=== PATIENT | male | born 1950 | race Caucasian/White ===

== ENCOUNTER → 2020-04-16 09:36 | Outpatient (BNVA) | payer MEDICARE, SELFPAY | PROVIDERS: Visit Provider Internal Medicine Gastroenterology | DX: K75.81 Nonalcoholic steatohepatitis (NASH) (principal); Z86.010 Personal history of colon polyps; E66.9 Obesity, unspecified | CPT/HCPCS: 99212 ==

== ENCOUNTER → 2020-04-21 13:28 | Outpatient (BNVA) | payer MEDICARE, SELFPAY | PROVIDERS: PCP Internal Medicine; Referring Provider Internal Medicine; Visit Provider Internal Medicine | DX: I25.10 Atherosclerotic heart disease of native coronary artery without angina pectoris (principal); I49.3 Ventricular premature depolarization; Z79.82 Long term (current) use of aspirin; Z79.899 Other long term (current) drug therapy | CPT/HCPCS: 99212 ==

== ENCOUNTER 2020-06-29 09:44 | Outpatient (REF) | payer MEDICARE, SELFPAY ==
[2020-06-29 10:07] LABS: MANUAL DIFF FLAG NO
[2020-06-29 10:10] LABS: Basophils Absolute Auto 0.1 X10*3/uL (0.0-0.2); Basophils Percent Auto 0.9 % (0-2); Eosinophils Absolute Auto 0.2 X10*3/uL (0.0-0.4); Eosinophils Percent Auto 3.3 % (0-4); Hematocrit 45.3 % (42-52); Hemoglobin 15.1 g/dl (14.0-18.0); Imm Gran Abs Auto 0.01 X10*3/uL (0.00-0.03); Imm Gran Pct Auto 0.2 % (0.0-0.4); Lymphocytes Absolute Auto 2.3 X10*3/uL (1.2-4.9); Lymphocytes Percent Auto 34.7 % (20-40); Mean Corpuscular HGB Conc 33.3 g/dl (31.0-36.0); Mean Corpuscular Hemoglobin 30.6 pg (27.0-33.0); Mean Corpuscular Volume 91.7 fL (80-98); Monocytes Absolute Auto 0.7 X10*3/uL (0.1-1.2); Monocytes Percent Auto 10.2 % (2-11); Neutrophils Absolute Auto 3.4 X10*3/uL (2.0-8.3); Neutrophils Percent Auto 50.7 % (45-73); Platelet Count 227 X10*3/uL (160-400); Red Blood Count 4.94 X10*6/uL (4.60-5.80); Red Cell Distribution Width 12.5 % (11.0-16.0); White Blood Count 6.6 X10*3/uL (4.8-10.8)
[2020-06-29 10:16] LABS: Prothrombin Time 12.1 SEC (10.8-13.0)
[2020-06-29 10:32] LABS: Alanine Aminotransferase 35 U/L (0-40); Albumin Level 4.4 g/dL (3.5-5.0); Alkaline Phosphatase 43 U/L (39-117); Aspartate Amino Transferase 26 U/L (5-37); Bilirubin Direct 0.4 mg/dL (0.0-0.5); Bilirubin Total 1.3 mg/dL (0.0-1.0); Estimated Glomerular Filt Rate > 60; Total Protein 7.1 g/dL (6.5-8.0)
== END 2020-06-29 09:45 | disposition home or self-care (01) ==
LOC: HO.LAB 09:44
PROVIDERS: Absent Provider Internal Medicine Gastroenterology; PCP Internal Medicine; Visit Provider Internal Medicine
DX: K75.81 Nonalcoholic steatohepatitis (NASH) (principal)
CPT/HCPCS: 36415; 80076; 82565; 85025; 85610

== ENCOUNTER 2020-07-07 07:17 | Day surgery (SDC) | payer MEDICARE, SELFPAY ==
[2020-06-30 13:01] VITALS: BMI 29.2
--- NOTE | 2020-07-06 09:46 | P.CONAN_ITS ---
Documented by User: Liz Larsen 07/06/20 12:03 HPI - Anesthesia Eval Consult details Narrative: 69yo M for Colonoscopy *fluid restriction of 2L per day* Cardiology OV 04/2020 - med management of CAD, walking ~1.2 miles per day, stable for 6 month f/u [facility] Past Medical History Medical History Atherosclerotic cardiovascular disease CHF (congestive heart failure) Diabetes mellitus DVT (deep venous thrombosis) GERD (gastroesophageal reflux disease) History of colonic polyps HTN (hypertension) LEMONS (nonalcoholic steatohepatitis) On beta mere at home FLORES (obstructive sleep apnea) PVC (premature ventricular contraction) Statin intolerance Family History Family History (Updated 04/16/20 @ 09:43 by NADEEN Lux) Father No problems noted. Mother Stroke Brother Liver disease Surgical History Surgical History (Updated 06/30/20 @ 12:55 by Evelin Swanson) History of hand surgery Hx of cardiac cath Hx of colonoscopy Hx of tonsillectomy Social History Social History (Updated 04/16/20 @ 09:39 by NADEEN Lux) Alcohol intake: current Alcohol intake frequency: does not drink Smoking Status: Never smoker Use of substances other than those prescribed or required for medical reasons: No Advance Directives: No Advance Directives Information Provided: No Advance Directives on File: No Recently lost weight without trying: No Meds Allergies Allergy/AdvReac Type Severity Reaction Status Date / Time No Known Allergies Allergy Verified 07/07/20 07:53 [No Known Allergies*] Home Medications Medication Instructions Recorded Confirmed Type aspirin 81 mg tablet,delayed 81 mg PO DAILY 04/16/20 06/30/20 History release cholecalciferol (vitamin D3) 25 25 mcg PO DAILY 04/16/20 06/30/20 History mcg (1,000 unit) capsule finasteride 5 mg tablet 5 mg PO DAILY 04/16/20 06/30/20 History metoprolol succinate 50 mg 50 mg PO DAILY 04/16/20 06/30/20 History tablet,extended release 24 hr tamsulosin 0.4 mg capsule 0.4 mg PO DAILY 04/16/20 06/30/20 History vitamin E (dl, acetate) 400 unit 400 unit PO DAILY 04/16/20 06/30/20 History capsule lisinopril 20 mg tablet 10 mg PO DAILY 04/21/20 06/30/20 History Exam Exam Date and Time: July 06, 2020 0946 Height,Weight and Vital Signs: Height 5 ft 9 in Weight 89.811 kg Pertinent Lab Results Pertinent Lab Results: Laboratory Tests 07/24/19 06/29/20 06/29/20 09:46 09:55 09:55 WBC 6.6 Hgb 15.1 Hct 45.3 Plt Count 227 Sodium 140 Potassium 5.3 H Chloride 104 BUN 27 H Creatinine 0.86 Narrative Narrative: Echo 06/2019 Nml LV sys function with mild LVH, Gr 1 DD EF 55-60% Trivial aortic regurg Nml RV sys pressure No pericardial effusion Assessment and Plan Assessment Anesthesia Assessment: Chart Reviewed Documented by User: Tayla Acevedo 07/07/20 08:31 [facility] Past Medical History Medical History Atherosclerotic cardiovascular disease CHF (congestive heart failure) Diabetes mellitus DVT (deep venous thrombosis) GERD (gastroesophageal reflux disease) History of colonic polyps HTN (hypertension) LEMONS (nonalcoholic steatohepatitis) On beta mere at home FLORES (obstructive sleep apnea) PVC (premature ventricular contraction) Statin intolerance Family History Family History (Updated 04/16/20 @ 09:43 by NADEEN Lux) Father No problems noted. Mother Stroke Brother Liver disease Surgical History Surgical History (Updated 06/30/20 @ 12:55 by Evelin Swanson) History of hand surgery Hx of cardiac cath Hx of colonoscopy Hx of tonsillectomy Social History Social History (Updated 04/16/20 @ 09:39 by NADEEN Lux) Alcohol intake: current Alcohol intake frequency: does not drink Smoking Status: Never smoker Use of substances other than those prescribed or required for medical reasons: No Advance Directives: No Advance Directives Information Provided: No Advance Directives on File: No Recently lost weight without trying: No Meds Allergies Allergy/AdvReac Type Severity Reaction Status Date / Time No Known Allergies Allergy Verified 07/07/20 07:53 [No Known Allergies*] Home Medications Medication Instructions Recorded Confirmed Type aspirin 81 mg tablet,delayed 81 mg PO DAILY 04/16/20 06/30/20 History release cholecalciferol (vitamin D3) 25 25 mcg PO DAILY 04/16/20 06/30/20 History mcg (1,000 unit) capsule finasteride 5 mg tablet 5 mg PO DAILY 04/16/20 06/30/20 History metoprolol succinate 50 mg 50 mg PO DAILY 04/16/20 06/30/20 History tablet,extended release 24 hr tamsulosin 0.4 mg capsule 0.4 mg PO DAILY 04/16/20 06/30/20 History vitamin E (dl, acetate) 400 unit 400 unit PO DAILY 04/16/20 06/30/20 History capsule lisinopril 20 mg tablet 10 mg PO DAILY 04/21/20 06/30/20 History Exam Airway Mallampati Class: III TM Dist: <=3cm Neck ROM: Full Heart: RRR Lungs: CTA BL Assessment and Plan Assessment Anesthesia Assessment: Anesthesia Plan Discussed and Chart Reviewed Final Anesthetic Review NPO: Yes ASA Class: III Final Preanesthetic Review: No Changes in Pt Med Stat and Consent Obtained/Reviewed Patient Risk: Intermediate Procedure Risk: Intermediate Anesthetic Plan Anesthetic Plan: MAC: Disposition: Standard PACU
[2020-07-07 08:08] VITALS: BP 132/72; PULSE 74; RESP 18; TEMP 36.2; O2SAT 97
[2020-07-07 08:13] LABS: Glucose, Whole Blood 115 mg/dL (60-115)
[2020-07-07] MEDS: Lactated Ringers 1,000 ML 20 ML IVCONT (08:22)
--- NOTE | 2020-07-07 08:32 | W.PM.OPN ---
Operative Note Operative Note Date of Service: 07/07/20 Narrative: Pre-op diagnosis: Colon cancer screening, history of colon polyps Post-op diagnosis: other (Colon polyps, diverticulosis) Procedure: COLONOSCOPY TILL CECUM WITH BIOPSY, SNARE POLYPECTOMY AND SUBMUCOSAL INJECTION Consent: Indications for the procedure and potential complications of bleeding, perforation, reaction to medications and missed diagnosis were discussed with the patient and informed consent was obtained. Instrument: Olympus PCF H 190 L variable stiffness pediatric colonoscope Monitoring: Vital signs and clinical assessment, intermittent blood pressure monitoring, continuous EKG monitoring, Pulse oximetry and Carbon Dioxide monitoring were done throughout the procedure. Colon withdrawl time was 28 minutes. Procedure: The patient was placed in the left lateral decubitis position and pre-procedure medications were administered. After a digital rectal examination of the ano-rectum, the video colonoscope was inserted into the rectum and advanced through the colon to the cecum. The colonoscope was slowly withdrawn in a retrograde panoramic fashion and the colon mucosa was carefully examined including a retroflexed view of the rectum. Findings and interventions are described below. Procedure Difficulty: Without difficulty Findings: Terminal Ileum: Not evaluated Cecum: A 10 mm flat polyp raised with 6 cc of normal saline and removed with a hot snare. Ascending Colon: A 15 to 18 mm flat polyp in the proximal ascending colon, raised with 3 cc of normal saline and removed with a hot snare. A 10 mm sessile polyp in the distal ascending colon removed with a cold snare Transverse Colon: Normal Descending Colon: Moderate diverticulosis Sigmoid Colon: Moderate diverticulosis Rectum: Focal 5 mm sessile polyp removed with the cold biopsy. Ano-rectum: Normal Colon preparation: Good after some irrigation Impression and Post Procedure Diagnosis: Colonoscopy Findings: Four small to medium sized polyps removed Moderate diverticulosis seen in the left colon Plan: Await pathology results Patient has an appointment on 07/23/20 in the GI Clinic with Frannie Padilla M.D. Repeat Colonoscopy interval based on path results - in 3 years if polyps are adenomatous and 5 years if polyps are hyperplastic. Above findings were reviewed with the patient and colon polyps and diverticulosis handouts were given in the discharge area Surgeon: Frannie Padilla MD Anesthesia: MAC (Dr Cueto) Estimated blood loss (mL): 0 Pathology: other (A. AC polyp x 1, B. cecal polyp x 1, C. Prox AC polyp x1, D. Rectal polyp x 1) Condition: stable Disposition: PACU
--- NOTE | 2020-07-07 08:32 | MHC.SHP ---
Pre-Procedural Eval Section A The patient is an INPATIENT: No The History & Physical has been completed within 30 days and I have reviewed it.: No Section B Chief Complaint: LEMONS Details of Present Illness: Denies any GI issues at present Lab results were reviewed with the patient. Lost 10 lbs - has been walking every day. Not eating any cold cut meats. Relevant Family History (Specify if Yes): No Relevant Social History: None Present Medications: see Short Stay Collaborative assessment Medical History: Significant History (Fatty liver, hx of colon polyps, PVD) History of Previous Operations: Relevant previous surgery/procedure and date(s) (History of hand surgery Hx of cardiac cath Hx of colonoscopy) Allergies: Allergies Allergy/AdvReac Type Severity Reaction Status Date / Time No Known Allergies Allergy Verified 07/07/20 07:53 [No Known Allergies*] Review of Systems Sugical H&P ROS: Negative: Constitution, Cardiovascular and Respiratory and Yes, Specify: Gastrointestinal (abdominal bloating) Exam Surgical H&P Exam: Normal: Heart, Normal: Lungs, Normal: Extremities and Normal: Abdomen Plan Diagnosis/Plan: Unchanged I have reviewed the history and physical and performed a pertinent physical examination on my patient. No changes have occurred unless specified.
[2020-07-07 09:25] VITALS: BP 98/57; PULSE 66; RESP 16; TEMP 36; O2SAT 94
[2020-07-07 09:40] VITALS: BP 116/71; PULSE 64; RESP 16; TEMP 36.1; O2SAT 98
--- NOTE | 2020-07-07 10:24 | HO.POSTANES ---
Post Anesthesia Evaluation Post Anesthesia Evaluation Vital Signs: Vital Signs Temp Pulse Resp BP Pulse Ox 07/07/20 09:40 97 F 64 16 116/71 98 07/07/20 09:25 96.8 F 66 16 98/57 L 94 07/07/20 08:08 97.2 F 74 18 132/72 97 Anesthesia: Monitored Mental Status: Awake Pain Control: Satisfactory Nausea/Vomiting: None Hydration: Adequate Anesthesia-Related Issues: No Anes. Related Issues
== END 2020-07-07 10:16 | disposition home or self-care (01) ==
PROVIDERS: Visit Provider Internal Medicine Gastroenterology
PROC: 0DJD8ZZ Inspection of Lower Intestinal Tract, Via Natural or Artificial Opening Endoscopic (ICD-10-PCS; CPT 45378; principal; 2020-07-07 08:30)
DX: Z12.11 Encounter for screening for malignant neoplasm of colon (principal); Z86.010 Personal history of colon polyps; D12.2 Benign neoplasm of ascending colon; K63.5 Polyp of colon; K62.1 Rectal polyp; K57.30 Diverticulosis of large intestine without perforation or abscess without bleeding; K75.81 Nonalcoholic steatohepatitis (NASH); G47.33 Obstructive sleep apnea (adult) (pediatric); I11.0 Hypertensive heart disease with heart failure; I50.9 Heart failure, unspecified; E66.9 Obesity, unspecified; Z79.82 Long term (current) use of aspirin; Z79.899 Other long term (current) drug therapy
CPT/HCPCS: 45385; 45380; 45381; 82947; 88305

== ENCOUNTER → 2020-07-23 13:10 | Outpatient (BNVA) | payer MEDICARE, SELFPAY | PROVIDERS: Visit Provider Internal Medicine Gastroenterology | DX: Z76.89 Persons encountering health services in other specified circumstances (principal) | CPT/HCPCS: Q3014 ==

== ENCOUNTER → 2020-10-22 14:34 | Outpatient (BNVA) | payer MEDICARE, SELFPAY | PROVIDERS: Visit Provider Internal Medicine | DX: I25.10 Atherosclerotic heart disease of native coronary artery without angina pectoris (principal); I49.3 Ventricular premature depolarization; Z78.9 Other specified health status; Z79.899 Other long term (current) drug therapy | CPT/HCPCS: 93005; 99212 ==

== ENCOUNTER → 2020-11-17 07:33 | Outpatient (REF) | payer MEDICARE, SELFPAY ==
--- NOTE | 2020-11-17 07:35 | CA_ITS ---
Transthoracic Echocardiogram Patient (Last, First, Middle): Toño Caceres J Gender: Male Date of : 1950 Age: 70 Procedure Date: 11/17/2020 Procedure Type: Transthoracic Echocardiogram Location: OP Height: 170.18 cm Weight: 82.1 kg BSA: 1.94 m2 Heart Rate: bpm BP: 124 / 80 mmHg Light Cleaner: Referring MD: Kishan Bradley MD Symptoms: I25.10 - Atherosclerotic heart disease of [place] coronary... Study Quality: Good ECG Rhythm: Sinus Conclusions: - The left ventricular systolic function is normal. The visually estimated ejection fraction is between 55-60%. - The basal inferior and basal inferoseptal segments are hypokinetic. - No obvious valvular pathology seen on this study. Findings Left Ventricle Normal left ventricular cavity size. There is mildly increased left ventricular wall thickness. The left ventricular systolic function is normal. The visually estimated ejection fraction is between 55-60%. There is no evidence of regional wall motion abnormalities. E/E prime ratio is between 8 and 15 consistent with indeterminate filling pressures. Evidence suggests grade I (mild) diastolic dysfunction. Wall Motion Rest Echo Findings The basal inferior and basal inferoseptal segments are hypokinetic. Right Ventricle Normal right ventricular cavity size and systolic function. Atria The left atrium is normal in size. The right atrium is normal in size. Aortic Valve There is a normal trileaflet aortic valve. There is mild calcification of the aortic valve. There is no aortic valve stenosis. There is mild aortic valve regurgitation. Mitral Valve The mitral valve appears normal. There is trace mitral valve regurgitation. There is no mitral valve stenosis. Pulmonic Valve The pulmonic valve was not well visualized. Tricuspid Valve Normal tricuspid valve structure. There is trace tricuspid valve regurgitation. The pulmonary artery systolic pressure is normal. Great Vessels The aortic annulus, sinuses of valsalva, and asc aorta are normal in size. Venous The inferior vena cava is normal in size and collapses greater than 50% with inspiration. Pericardium/Pleural There is no evidence of pericardial effusion. Prior Study Comparison Changes noted compared to prior study dated: 06/28/2019. See comments on wall motion. Recommendations, Care & Conclusions No obvious valvular pathology seen on this study. Measurements 2D Linear Measurements IVSd: 1.20 0.6-0.9/0.6-1.0 cm LVIDd: 4.93 3.9-5.3/4.2-5.9 cm LVIDd Index: 2.54 2.4-3.2/2.2-3.1 cm/m2 LVIDs: 3.53 2.0-3.6 cm LVPWd: 1.23 0.7-1.1 cm Ao Root: 3.20 2.1-3.5 cm LA Diam: 3.60 2.7-3.8/3.0-4.0 cm LAIDs Index: 1.86 1.5-2.3 cm/m2 LV Mass: 290.02 67-162/88-224 g LV Mass Index: 149.49 43-95/49-115 g/m2 LVOT Diam: 2.00 3.0+(-)1.3 cm 2D Systolic Function EF 4C: 49.00 >55% EF 2C: 45.30 >55% EF BiP: 41.70 >55% Mitral Valve MV Pk E: 0.57 MV PK A: 0.78 MV Decel Time: 219.00 E/A: 0.70 E'Lateral: 7.83 E'Medial: 4.35 E/E' Med: 13.20 E/E' Lat: 7.30 PHT: 64.00 MVA PHT: 3.44 Decel Dukes: 2.62 Aortic Valve AoV Pk Leonides: 1.55 AoV Mn Leonides: 1.06 AoV VTI: 0.35 AoV Pk Grad: 10.00 Aov Mn Grad: 5.00 YOGESH Cont.VTI: 1.93 LVOT LVOT Pk Leonides: 0.89 LVOT Mn Leonides: 0.58 LVOT VTI: 0.22 LVOT Pk Grad: 3.00 LVOT Mn Grad: 2.00 LVOT Diam: 2.00 LVOT Area: 3.14 Diastolic Function MV Pk E: 0.57 MV Pk A: 0.78 E/A: 0.70 E'Medial: 4.35 E/E' Med: 13.20 E' Laterial: 7.83 E/E' Lat: 7.30 Tricuspid Valve TR Pk Leonides: 2.44 TR Pk Grad: 24.00 RA Press: 3.00 Great Vessels Aorta Ao Root-2D: 3.20 2.0-3.7 cm Ao Asc: 3.50 2.1-3.4 cm Pulmonary Valve PV Pk Leonides: 0.92 Peak PV Grad: 3.00 Updated in Other Vendor System with Status of Final Kishan Bradley MD electronically signed on 11/18/2020 11:51:33 AM with status of Final
--- NOTE | 2020-11-17 07:50 | ECG_ITS ---
Hook-up date: 2020-11-17 08:56:00 Duration: 30:09:00 Test Indications: PVC'S Medications: 780651 QRS complexes 05704 Ventricular ectopics which represent 10 % of total QRS comp. 4 Supraventricular ectopics which represent <1 % of total QRS comp. * Paced QRS complexs which represent % of total QRS comp. VENTRICULAR ECTOPY 58496 Isolated 1236 Bigeminal Cycles 0 Couplets 0 Runs 0 Beats in Runs * Beats LONGEST at * BPM at :: -- * Beats FASTEST at * BPM at :: -- SUPRAVENTRICULAR ECTOPY 2 Isolated 1 Couplets 0 Runs 0 Beats in Runs * Beats LONGEST at * BPM at :: -- * Beats FASTEST at * BPM at :: -- HEART RATES 52 MIN at 02:06:28 2020-11-18 76 AVG 110 MAX at 11:50:12 2020-11-17 LONGEST RR 1.1360 secs at 02:06:28 2020-11-18 S-T LEVELS Channel 1 - 128 mm at 08:56:00 2020-11-17 - 128 mm at 08:56:00 2020-11-17 Channel 2 - 128 mm at 08:56:00 2020-11-17 - 128 mm at 08:56:00 2020-11-17 Channel 3 - 128 mm at 02:81:51 -- - 128 mm at 02:81:51 Basic rhythm Normal sinus rhythm No long pause or profound bradycardia Frequent Premature ventricular complexes , 11% of total beats, unifocal Patient did not report any symptoms in the diary Referred By: Kishan Bradley Overread By: MATTY GO MD
== END ==
LOC: HO.CARD 07:33
PROVIDERS: Visit Provider Internal Medicine
DX: I25.10 Atherosclerotic heart disease of native coronary artery without angina pectoris (principal); I49.3 Ventricular premature depolarization
CPT/HCPCS: 93225; 93226; 93306

== ENCOUNTER → 2020-12-16 14:45 | Outpatient (BNVA) | payer MEDICARE, SELFPAY | PROVIDERS: Visit Provider Internal Medicine | DX: I25.10 Atherosclerotic heart disease of native coronary artery without angina pectoris (principal); I49.3 Ventricular premature depolarization; Z78.9 Other specified health status | CPT/HCPCS: 99212 ==

== ENCOUNTER 2021-01-12 10:37 | Outpatient (REF) | payer MEDICARE, SELFPAY ==
[2021-01-12 11:48] LABS: MANUAL DIFF FLAG NO
[2021-01-12 11:51] LABS: Basophils Absolute Auto 0.1 X10*3/uL (0.0-0.2); Basophils Percent Auto 0.8 % (0-2); Eosinophils Absolute Auto 0.2 X10*3/uL (0.0-0.4); Eosinophils Percent Auto 3.4 % (0-4); Hematocrit 43.4 % (42-52); Hemoglobin 14.7 g/dl (14.0-18.0); Imm Gran Abs Auto 0.02 X10*3/uL (0.00-0.03); Imm Gran Pct Auto 0.3 % (0.0-0.4); Lymphocytes Absolute Auto 2.4 X10*3/uL (1.2-4.9); Mean Corpuscular HGB Conc 33.9 g/dl (31.0-36.0); Mean Corpuscular Hemoglobin 31.3 pg (27.0-33.0); Mean Corpuscular Volume 92.3 fL (80-98); Mean Platelet Volume 10.3 fL (9.4-12.4); Monocytes Absolute Auto 0.6 X10*3/uL (0.1-1.2); Monocytes Percent Auto 9.2 % (2-11); Neutrophils Absolute Auto 2.8 X10*3/uL (2.0-8.3); Neutrophils Percent Auto 46.3 % (45-73); Platelet Count 242 X10*3/uL (160-400); Red Cell Distribution Width 12.9 % (11.0-16.0)
[2021-01-12 11:56] LABS: Prothrombin Time 11.6 SEC (9.9-13.0)
[2021-01-12 12:13] LABS: Alanine Aminotransferase 27 U/L (0-40); Albumin Level 4.6 g/dL (3.5-5.0); Alkaline Phosphatase 48 U/L (39-117); Anion Gap 14 (12-20); Aspartate Amino Transferase 27 U/L (5-37); Bilirubin Total 1.3 mg/dL (0.0-1.0); Blood Urea Nitrogen 19 mg/dL (9-16); Calcium 9.9 mg/dL (8.4-10.2); Carbon Dioxide 26 mmol/L (22-29); Chloride 105 mmol/L (96-108); Estimated Glomerular Filt Rate > 60; Glucose Random 109 mg/dL (60-115); Potassium 4.6 mmol/L (3.3-5.1); Sodium 140 mmol/L (135-145); Total Protein 7.5 g/dL (6.5-8.0)
== END 2021-01-12 10:38 | disposition home or self-care (01) ==
LOC: HO.LAB 10:37
PROVIDERS: Visit Provider Internal Medicine Gastroenterology
DX: K75.81 Nonalcoholic steatohepatitis (NASH) (principal)
CPT/HCPCS: 36415; 80053; 85025; 85610

== ENCOUNTER → 2021-01-14 12:59 | Outpatient (BNVA) | payer MEDICARE, SELFPAY | PROVIDERS: Visit Provider Internal Medicine Gastroenterology | DX: K75.81 Nonalcoholic steatohepatitis (NASH) (principal); E66.9 Obesity, unspecified; Z86.010 Personal history of colon polyps | CPT/HCPCS: 99212 ==

== ENCOUNTER → 2021-03-23 14:14 | Outpatient (BNVA) | payer MEDICARE, SELFPAY | PROVIDERS: Visit Provider Internal Medicine | DX: I25.10 Atherosclerotic heart disease of native coronary artery without angina pectoris (principal); I49.3 Ventricular premature depolarization; Z78.9 Other specified health status | CPT/HCPCS: 99212 ==

== ENCOUNTER → 2021-08-05 11:56 | Outpatient (BNVA) | payer MEDICARE, SELFPAY | PROVIDERS: Visit Provider Internal Medicine Gastroenterology | DX: R14.0 Abdominal distension (gaseous) (principal); K75.81 Nonalcoholic steatohepatitis (NASH); E11.9 Type 2 diabetes mellitus without complications; I10 Essential (primary) hypertension; N52.9 Male erectile dysfunction, unspecified; E66.9 Obesity, unspecified; G47.33 Obstructive sleep apnea (adult) (pediatric); R55 Syncope and collapse; R97.20 Elevated prostate specific antigen [PSA]; R94.5 Abnormal results of liver function studies; Z68.26 Body mass index [BMI] 26.0-26.9, adult; Z86.010 Personal history of colon polyps; Z79.82 Long term (current) use of aspirin; Z79.899 Other long term (current) drug therapy | CPT/HCPCS: 99212 ==

== ENCOUNTER 2021-08-26 11:32 | Outpatient (REF) | payer MEDICARE, SELFPAY ==
[2021-08-26 11:59] LABS: MANUAL DIFF FLAG NO
[2021-08-26 12:17] LABS: Basophils Absolute Auto 0.1 X10*3/uL (0.0-0.2); Eosinophils Absolute Auto 0.1 X10*3/uL (0.0-0.4); Eosinophils Percent Auto 2.2 % (0-4); Hematocrit 43.8 % (42.0-52.0); Hemoglobin 14.8 g/dl (14.0-18.0); Imm Gran Abs Auto 0.02 X10*3/uL (0.00-0.03); Imm Gran Pct Auto 0.3 % (0.0-0.4); Lymphocytes Absolute Auto 2.2 X10*3/uL (1.2-4.9); Lymphocytes Percent Auto 37.1 % (20-40); Mean Corpuscular HGB Conc 33.8 g/dl (31.0-36.0); Mean Corpuscular Hemoglobin 31.2 pg (27.0-33.0); Mean Corpuscular Volume 92.2 fL (80.0-98.0); Mean Platelet Volume 10.1 fL (9.4-12.4); Monocytes Absolute Auto 0.6 X10*3/uL (0.1-1.2); Monocytes Percent Auto 9.5 % (2-11); Neutrophils Absolute Auto 2.9 x10*3/uL (2.0-8.3); Neutrophils Percent Auto 49.9 % (45-73); Platelet Count 216 X10*3/uL (160-400); Red Blood Count 4.75 X10*6/uL (4.60-5.80); Red Cell Distribution Width 12.6 % (11.0-16.0); White Blood Count 5.8 X10*3/uL (4.8-10.8)
[2021-08-26 13:31] LABS: Folate 18.3 ng/mL (> or = 4.0); Vitamin B12 389 pg/mL (200-900)
[2021-08-26 14:18] LABS: Alanine Aminotransferase 35 U/L (0-40); Albumin Level 4.7 g/dL (3.5-5.0); Alkaline Phosphatase 41 U/L (39-117); Anion Gap 14 (12-20); Aspartate Amino Transferase 26 U/L (5-37); Bilirubin Total 1.6 mg/dL (0.0-1.0); Blood Urea Nitrogen 20 mg/dL (9-16); Calcium 9.8 mg/dL (8.4-10.2); Carbon Dioxide 24 mmol/L (22-29); Chloride 104 mmol/L (96-108); Cholesterol 227 mg/dL; Estimated Glomerular Filt Rate > 60; Glucose Fasting 127 mg/dL (60-99); HDL Cholesterol 38 mg/dL; LDL Cholesterol Calculated 158 mg/dl; Lipase 18 U/L (8-78); Potassium 4.6 mmol/L (3.3-5.1); Sodium 137 mmol/L (135-145); Total Protein 7.4 g/dL (6.5-8.0); Triglycerides 157 mg/dL
[2021-08-26 14:41] LABS: TSH reflex Free T4 0.53 uIU/mL (0.32-4.0)
[2021-08-26 18:05] LABS: Reflex LDLD? No
[2021-08-27 16:47] LABS: Immunoglobulin A 220 mg/dL (70-320)
[2021-08-27 22:32] LABS: Transglutaminase IgA <1.0 U/mL
== END 2021-08-26 11:33 | disposition home or self-care (01) ==
LOC: HO.LAB 11:32
PROVIDERS: Visit Provider Internal Medicine Gastroenterology
DX: R14.0 Abdominal distension (gaseous) (principal)
CPT/HCPCS: 36415; 80053; 80061; 82607; 82746; 82784; 83690; 84443; 85025; 86364

== ENCOUNTER → 2021-09-10 07:37 | Outpatient (BNVA) | payer MEDICARE, SELFPAY | PROVIDERS: Visit Provider Internal Medicine Gastroenterology | DX: K75.81 Nonalcoholic steatohepatitis (NASH) (principal); R14.0 Abdominal distension (gaseous); Z86.010 Personal history of colon polyps | CPT/HCPCS: 99212 ==

== ENCOUNTER → 2022-01-20 07:53 | Outpatient (BNVA) | payer MEDICARE, SELFPAY | PROVIDERS: Visit Provider Internal Medicine Gastroenterology | DX: E78.00 Pure hypercholesterolemia, unspecified (principal); R14.0 Abdominal distension (gaseous); K75.81 Nonalcoholic steatohepatitis (NASH); Z86.010 Personal history of colon polyps | CPT/HCPCS: 99212 ==

== ENCOUNTER 2022-01-20 08:34 | Outpatient (REF) | payer MEDICARE, SELFPAY ==
[2022-01-20 09:14] LABS: Alanine Aminotransferase 41 U/L (0-40); Albumin Level 4.8 g/dL (3.5-5.0); Alkaline Phosphatase 44 U/L (39-117); Anion Gap 15 (12-20); Aspartate Amino Transferase 35 U/L (5-37); Bilirubin Total 1.5 mg/dL (0.0-1.0); Blood Urea Nitrogen 23 mg/dL (9-16); Calcium 9.5 mg/dL (8.4-10.2); Carbon Dioxide 27 mmol/L (22-29); Chloride 104 mmol/L (96-108); Cholesterol 226 mg/dL; Estimated Glomerular Filt Rate > 60; Glucose Fasting 123 mg/dL (60-99); HDL Cholesterol 41 mg/dL; LDL Cholesterol Calculated 158 mg/dl; Potassium 4.9 mmol/L (3.3-5.1); Sodium 141 mmol/L (135-145); Total Protein 7.6 g/dL (6.5-8.0); Triglycerides 136 mg/dL
[2022-01-20 10:50] LABS: Reflex LDLD? No
== END 2022-01-20 08:35 | disposition home or self-care (01) ==
LOC: HO.LAB 08:34
PROVIDERS: Visit Provider Internal Medicine Gastroenterology
DX: E78.00 Pure hypercholesterolemia, unspecified (principal)
CPT/HCPCS: 36415; 80053; 80061

== ENCOUNTER → 2022-03-24 09:31 | Outpatient (BNVA) | payer MEDICARE, SELFPAY | PROVIDERS: Visit Provider Internal Medicine | DX: I25.10 Atherosclerotic heart disease of native coronary artery without angina pectoris (principal); E78.5 Hyperlipidemia, unspecified | CPT/HCPCS: 93005; 99212 ==

== ENCOUNTER → 2022-07-21 07:57 | Outpatient (BNVA) | payer MEDICARE, SELFPAY | PROVIDERS: Visit Provider Internal Medicine Gastroenterology | DX: K75.81 Nonalcoholic steatohepatitis (NASH) (principal); R14.0 Abdominal distension (gaseous); Z86.010 Personal history of colon polyps | CPT/HCPCS: 99212 ==

== ENCOUNTER 2022-10-28 09:24 | Outpatient (REF) | payer MEDICARE, SELFPAY ==
[2022-10-28 09:43] LABS: MANUAL DIFF FLAG NO
[2022-10-28 09:52] LABS: Basophils Absolute Auto 0.1 X10*3/uL (0.0-0.2); Basophils Percent Auto 0.9 % (0-2); Eosinophils Absolute Auto 0.2 X10*3/uL (0.0-0.4); Eosinophils Percent Auto 2.9 % (0-4); Hematocrit 44.2 % (42.0-52.0); Imm Gran Abs Auto 0.02 X10*3/uL (0.00-0.03); Imm Gran Pct Auto 0.3 % (0.0-0.4); Lymphocytes Absolute Auto 2.5 X10*3/uL (1.2-4.9); Lymphocytes Percent Auto 37.2 % (20-40); Mean Corpuscular HGB Conc 33.9 g/dl (31.0-36.0); Mean Corpuscular Hemoglobin 30.9 pg (27.0-33.0); Mean Corpuscular Volume 90.9 fL (80.0-98.0); Mean Platelet Volume 9.9 fL (9.4-12.4); Monocytes Absolute Auto 0.7 X10*3/uL (0.1-1.2); Neutrophils Absolute Auto 3.2 x10*3/uL (2.0-8.3); Neutrophils Percent Auto 48.7 % (45-73); Platelet Count 227 X10*3/uL (160-400); Red Blood Count 4.86 X10*6/uL (4.60-5.80); Red Cell Distribution Width 12.6 % (11.0-16.0); White Blood Count 6.6 X10*3/uL (4.8-10.8)
[2022-10-28 09:56] LABS: Estimated Average Glucose 117 mg/dL; Hemoglobin A1c % 5.7 %
[2022-10-28 09:57] LABS: INTERNATIONAL NORM RATIO 0.9 (0.9-1.1); Prothrombin Time 10.2 SEC (10.0-13.1)
[2022-10-28 10:25] LABS: Alanine Aminotransferase 44 U/L (0-40); Albumin Level 4.4 g/dL (3.5-5.0); Alkaline Phosphatase 47 U/L (39-117); Anion Gap 13 (12-20); Aspartate Amino Transferase 36 U/L (5-37); Bilirubin Total 0.9 mg/dL (0.0-1.0); Blood Urea Nitrogen 22 mg/dL (9-16); Calcium 9.4 mg/dL (8.4-10.2); Carbon Dioxide 27 mmol/L (22-29); Chloride 106 mmol/L (96-108); Estimated Glomerular Filt Rate > 60; Glucose Fasting 115 mg/dL (60-99); Potassium 5.1 mmol/L (3.3-5.1); Sodium 141 mmol/L (135-145); Total Protein 7.1 g/dL (6.5-8.0)
== END 2022-10-28 09:25 | disposition home or self-care (01) ==
LOC: HO.LAB 09:24
PROVIDERS: Visit Provider Internal Medicine Gastroenterology
DX: K75.81 Nonalcoholic steatohepatitis (NASH) (principal)
CPT/HCPCS: 36415; 80053; 83036; 85025; 85610

== ENCOUNTER 2023-01-19 07:50 | Outpatient (AMB) | payer MEDICARE, SELFPAY ==
--- NOTE | 2023-01-19 08:04 | A.OFFVIS_ITS ---
Intake Vital Signs 01/19/23 08:09 Height 5 ft 9 in Weight 183 lb BMI 27.0 BP 138/68 Blood Pressure Location Lt brachial Position Sitting Pulse 68 Intake Visit Reasons: 6 month FU Intake Note: Patient follow up for abdominal bloating and lab result Patient cc: right center abdominal pain come and go, denies any other GI issues. Measurement Specialist Required: No Accompanied by: Self / Same As Patient Allergies [id number] Reductase Inhibitor Adverse Reaction (Mild, Verified 01/19/23 08:04) Abdominal Pain Medication List - Last Reconciled 01/19/23 by Frannie Padilla MD No Known Home Meds HPI 6 month FU HPI Details GI clinic visit for this 72-year-old male for follow-up of adenomatous colon polyps, elevated LFTs, fatty liver and obesity. ?CHRONIC ILLNESSES:?Essential hypertension, sleep apnea, syncope, elevated PSA, erectile dysfunction. [facility] Reviewed INR 1.0, ? BILIRUBIN, TOTAL 1.1 H ? GOT 34 (5-37) (U/L) ? GPT 44 H (0-40) (U/L) ?IMAGING STUDIES: 04/09/2019 ABDOMINAL ULTRASOUND SHOWED: ? Hepatic steatosis with focal fatty sparing. ? Rest of the abdominal ultrasound is unremarkable. ?ENDOSCOPIC STUDIES: 07/07/20 COLONOSCOPY SHOWED: ? Four small to medium sized polyps removed ? Moderate diverticulosis seen in the left colon ? Plan:? Repeat Colonoscopy interval based on path results - in 3 years if polyps are adenomatous and 5 years if polyps are hyperplastic. ? ? ? BIOPSIES SHOWED: A.? Colon, ascending, polypectomy:-? Fragments of sessile serrated polyp. B.? Cecum, polypectomy:? Colonic mucosa with prominent lymphoid aggregate; no dysplasia seen. C.? Colon, proximal ascending, polypectomy:? Sessile serrated polyp with small perineurioma. D.? Rectum, polypectomy:? Hyperplastic mucosal polyp. 06/25/19 colonoscopy showed: ? Two polyps removed - BX showed fragments of sessile serrated polyp. ? Small hemorrhoids on retroflexed exam. ? Plan:? Repeat Colonoscopy interval based on path results in 1-2 years if ? cecal polyps are adenomatous to check polypectomy site and 10 years if polyps are hyperplastic. ? Above findings were reviewed with the patient and handout on Colon polyps was given in the discharge area BIOPSIES SHOWED: A.? Colon, ascending, polypectomy:-? Fragments of sessile serrated polyp. B.? Cecum, polypectomy:? Colonic mucosa with prominent lymphoid aggregate; no dysplasia seen. C.? Colon, proximal ascending, polypectomy:? Sessile serrated polyp with small perineurioma. D.? Rectum, polypectomy:? Hyperplastic mucosal polyp. ?TODAY'S VISIT Able to loose wt to 183 lbs Resumed walking - tries to walk 7000 steps daily Has bloating when he eats too much bread. Fasting blood sugar range from a 100 to 105 Denies heartburn, dysphagia, constipation or diarrhea. On no medications - takes aspirin intermittently PAST VISITS: Has gained wt from 182 to 192 (187 lbs at home) Has been less active during the winter. Plans to start walking. When he wakes up at 8:30 am, checks his blood sugar and is 120 to 138 Has a brunch at 10 am and has suppper 4 to 5 pm. Bloating has improved since he cut back on carbohydrates. Cut out saturated fat from his diet. Taking some fibre since he notes fatigue and bloating witth bread and whole grain. Taking more fruit and salad Cooks at home and does not eat packaged food. likes to cook. Feeling a little better than last visit. Made some changes in the diet - eating a little less and watching the saturated fat in his diet. Feeling weird - having constipation since Jun, 2021 Feels dizzy when he tries to walk. Notes gas and bloating - like never before Has breakfast at 10 am - 3 eggs, torrez or home cooked ham Takes some cottage cheese or a slice of white cheese Has salads a few times a day Eating a handful of berries and eats nuts every night. Has home cooked meals for dinner at 5 pm - mostly soup Blood sugar levels are 120 to 130 when he wakes up. Wt is going up slowly. Has a Bm every other day and is painful. Trying to avoid the carbs. Continues to walk daily and having some back pain and associated with urination (? due to gas) Lost 14 lbs over the past 3 months by changing his diet. Planning to loose to 170 lbs. Walking 1.5 hrs (5 miles) every day. Using [place] and sesame seed oil. ?Taking more fibre in his diet. ? Continuing to walk daily - loosing weight slowly. ? Using a special belt which is helping with back pain. Had a son who at age 38 yrs from Pulmonary Htn. Tx from [place] to [place] for a lung transplant and did not survive. Has relatives in [place] that he visits periodically ? PAST VISIT: Colonoscopy results were reviewed. ? Denies problems after colonoscopy. ? Lost 10 lbs - has been walking every day. ? Not eating any cold cut meats. ? Working on loosing weight and has lost 7 lbs - fat layer is a little less. ? Weighs 194.5 lbs ? is cooking without fat. ? Unable to excercise due to palpitations. ? Is able to walk with some breaks. ? Denies taking any ETOH for the last 3 yrs. ? He states he drank ETOH in [place] in the and states he was poisoned and he was jaundiced afterwards. He is uncertain of the diagnosis but a medication cleared it up. ? Denies exposure to Hep B, C, D, HIV or tuberculosis ? Admits cardiac issues- HTN, had a stent placed in 2015, ahs SOB when walking on an incline, cardiology appointment in June 2019- may request for him to seen sooner prior to colonoscopy for clearance. ? Denies CP but has some mild discomfort with?excecise PFS Medical History (Updated 01/20/22 @ 08:21 by Frannie Padilla MD) Atherosclerotic cardiovascular disease CHF (congestive heart failure) Diabetes mellitus DVT (deep venous thrombosis) GERD (gastroesophageal reflux disease) History of colonic polyps HTN (hypertension) LEMONS (nonalcoholic steatohepatitis) On beta mere at home FLORES (obstructive sleep apnea) PVC (premature ventricular contraction) Statin intolerance Surgical History History of hand surgery Hx of cardiac cath Hx of colonoscopy Hx of tonsillectomy Family History Father No problems noted. Mother Stroke Brother Liver disease Social History Household Members: Spouse Alcohol intake: current Alcohol intake frequency: does not drink Patient Tobacco Use Status: Never used Tobacco Review of Systems Const All systems reviewed & are unremarkable except as noted in HPI and below Physical Exam Const General: healthy appearing and no acute distress Nutritional Appearance: overweight Orientation/consciousness: patient oriented x3 Limitations: no limitations HEENT Head: Yes normal to inspection Ears: hearing grossly normal bilaterally Eyes Sclerae: sclerae normal Pupils: Equal, round and reactive pupils present Neck Neck: Yes normal visual inspection Chest Chest palpation & inspection: normal inspection of the chest Resp Effort & Inspection: normal respiratory effort Auscultation: clear to auscultation bilaterally Cardio Palpation: normal PMI Rate: regular rate Rhythm: regular rhythm Heart sounds: S1 normal heart sound present, S2 normal heart sound present and no murmurs GI Palpation (GI): Soft to palpation, nontender and No hepatosplenomegaly present Auscultation: normal bowel sounds Rectal Exam - Male: Yes deferred Skin General skin exam: no rashes or lesions noted Neuro General: patient oriented x3, gait normal and moves all extremities Cranial nerves: Yes Equal, round and reactive pupils present Psych Appearance: grossly normal Mental Status: mental status grossly normal Assessment & Plan Assessment & Plan (1) Abdominal bloating: Code(s): R14.0 - Abdominal distension (gaseous) (2) History of colonic polyps: Code(s): Z86.010 - Personal history of colonic polyps (3) LEMONS (nonalcoholic steatohepatitis): Code(s): K75.81 - Nonalcoholic steatohepatitis (LEMONS) Plan 72 YM with Essential hypertension, sleep apnea, syncope, elevated PSA, erectile dysfunction, CAD, seen for FU of elevated LFTs likely due to fatty liver associated with obesity and follow-up of adenomatous colon polyps. Patient had a colonoscopy in Jul, 2020 and three sessile serrated polyps were removed.? Repeat colonoscopy is advised in 3 years (due in 07/2023). Patient was advised weight reduction for fatty liver. He and his are working on changing to a healthier diet with more fruits and vegetables. LFTs have been normal since he lost weight. He was advised to stop vitamin E when he finishes the current prescription. Patient handout on fatty liver from up-to-date was given to the patient at a previous visit. Symptoms of bloating and constipation have improved with change in diet (cutting back on fried foods). Pt was advised to establish care with a primary care physician for management of elevated cholesterol (since he has been following up with Cardiology and GI only) Repeat labs to recheck cholesterol at patient's request. Still looking for a PCP - given names of PCP providers to establish care. Advised a trail of a FODMAP diet for 6 weeks during his past visit. Follow-up in 6 months.? Coding Level of Care Code Est Pt Level 4 (56473) Diagnoses Abdominal bloating R14.0 History of colonic polyps Z86.010 LEMONS (nonalcoholic steatohepatitis) K75.81 Time Spent (min) 22
[2023-01-19 08:09] VITALS: BP 138/68; PULSE 68; BMI 27.0
== END 2023-01-19 08:37 | disposition home or self-care (01) ==
PROVIDERS: Visit Provider Internal Medicine Gastroenterology
DX: R14.0 Abdominal distension (gaseous) (principal); Z86.010 Personal history of colon polyps; K75.81 Nonalcoholic steatohepatitis (NASH)
CPT/HCPCS: 99214

== ENCOUNTER → 2023-01-19 07:50 | Outpatient (BNVA) | payer MEDICARE, SELFPAY | PROVIDERS: Visit Provider Internal Medicine Gastroenterology | DX: R14.0 Abdominal distension (gaseous) (principal); K75.81 Nonalcoholic steatohepatitis (NASH); Z86.010 Personal history of colon polyps | CPT/HCPCS: 99212 ==

== ENCOUNTER 2023-04-04 10:01 | Outpatient (AMB) | payer MEDICARE, SELFPAY ==
[2023-04-04 10:06] VITALS: BP 122/70; PULSE 81; BMI 28.1
--- NOTE | 2023-04-04 10:06 | A.OFFVIS_ITS ---
Intake Vital Signs 04/04/23 10:06 Height 5 ft 9 in Weight 190 lb 7.67 oz BMI 28.1 BP 122/70 Blood Pressure Location Lt brachial Position Sitting Pulse 81 Intake Visit Reasons: 1 year follow-up with ekg Intake Note: 1 year follow up w. 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 According to him, generally doing okay. No complaints like angina unless he really exerts strenuously. He is able to carry on with almost every activity he wants to do without any issues. With regard to medications, he is only taking intermittent aspirin. He has been on various other meds in the past including beta-blockers, nitrates, lisinopril, amlodipine, statins at different times but he had always complained of some side effect or the other and hence does not take any of them anymore. Otherwise, he has tried statins but could not take them because of musculoskeletal pain although not entirely clear if it is me dication related. Then tried Repatha and could not afford. Hence on nothing for cholesterol. [facility] Medical History (Updated 01/20/22 @ 08:21 by Frannie Padilla MD) CHF (congestive heart failure) On beta mere at home HTN (hypertension) Diabetes mellitus DVT (deep venous thrombosis) GERD (gastroesophageal reflux disease) LEMONS (nonalcoholic steatohepatitis) FLORES (obstructive sleep apnea) PVC (premature ventricular contraction) Statin intolerance Atherosclerotic cardiovascular disease History of colonic polyps Surgical History Hx of tonsillectomy History of hand surgery Hx of cardiac cath Hx of colonoscopy Family History Father No problems noted. Mother Stroke Brother Liver disease Social History Household Members: Spouse Alcohol intake: current Alcohol intake frequency: does not drink Patient Tobacco Use Status: Never used Tobacco Review of Systems Const Denies chills, Denies fatigue, Denies fever(s), Denies frequent falls, Denies weakness, Denies weight gain and Denies weight loss ENT Denies dizziness Card Denies chest pain, Denies leg edema, Denies lightheadedness, Denies palpitations, Denies dyspnea, Denies dyspnea on exertion, Denies orthopnea and Denies other (Loss of consciousness) Resp Denies cough, Denies dyspnea and Denies dyspnea on exertion GI Denies hematochezia and Denies change in bowel habits Musc Denies abnormal gait, Denies muscle weakness, Denies numbness, Denies radiating pain into limb and Denies tingling Neuro Denies abnormal gait, Denies dizziness, Denies frequent falls, Denies numbness, Denies tingling and Denies weakness Endo Denies fatigue and Denies palpitations Physical Exam Vital Signs: Last Vital Signs Pulse 81 04/04/23 10:06 BP 122/70 04/04/23 10:06 BMI result Body Mass Index 28.1 Const General: comfortable and no acute distress Orientation/consciousness: patient oriented x3 HEENT Other: Unremarkable Head: Yes normal to inspection Neck Neck: Yes normal visual inspection Chest Chest palpation & inspection: normal inspection of the chest Resp Auscultation: clear to auscultation bilaterally Cardio Palpation: normal PMI Heart sounds: S1 normal heart sound present, S2 normal heart sound present, no gallops, no murmurs and no rubs GI Palpation (GI): Soft to palpation Back/Spine/Pelvis Other: unremarkable Skin General skin exam: no rashes or lesions noted Neuro General: patient oriented x3 Extrem General: Yes normal to inspection Psych Mental Status: mental status grossly normal Office Procedures EKG Details: EKG with sinus rhythm at 81/Min; minimal criteria for LVH; no significant ST-T changes; [place] [id number], Complete Assessment & Plan Assessment & Plan (1) Atherosclerotic cardiovascular disease: Code(s): I25.10 - Atherosclerotic heart disease of seminole coronary artery without angina pectoris (2) Statin intolerance: Code(s): Z78.9 - Other specified health status Plan Cardiac catheterization from 2019 shows patent stent in the LAD; 90% ostial diagonal disease-small vessel; 80% ostial right PDA disease, medically managed. Last echocardiogram with preserved LVEF 55-60% and basal inferior/inferoseptal hypokinesis that may be related to the PDA disease. We have discussed his medications numerous times in every single prior visit and also today. Essentially he wants to take no medications at all. At least recommended that he takes regular aspirin. With regard to statins not able to take due to musculoskeletal pains. He does not want to do injections and also there was an issue with roque of Repatha. We discussed again today and he absolutely wants no changes. Script for sublingual nitroglycerin sent-take as needed. Total time spent including review of data, counseling, documentation, coordination of care-31 minutes. Medications: New nitroglycerin do not exceed 3 doses per episode 0.4 mg sublingual Q5M PRN 30 tabs 5RF chest pain R07.2 - Precordial pain Coding Level of Care Code Est Pt Level 4 (19881) Diagnoses Atherosclerotic cardiovascular disease I25.10 Statin intolerance Z78.9 CPT Codes EKG - CPT: 13400-[id number], Complete ([id number])
== END 2023-04-04 10:29 | disposition home or self-care (01) ==
PROVIDERS: Visit Provider Internal Medicine
DX: I25.10 Atherosclerotic heart disease of native coronary artery without angina pectoris (principal); Z78.9 Other specified health status
CPT/HCPCS: 93010; 99214

== ENCOUNTER → 2023-04-04 10:01 | Outpatient (BNVA) | payer MEDICARE, SELFPAY | PROVIDERS: Visit Provider Internal Medicine | DX: I25.10 Atherosclerotic heart disease of native coronary artery without angina pectoris (principal); Z78.9 Other specified health status | CPT/HCPCS: 93005; 99212 ==

== ENCOUNTER 2023-05-23 12:45 | Day surgery (SDC) | payer MEDICARE, SELFPAY ==
[2023-05-19 09:21] VITALS: BMI 28.1
--- NOTE | 2023-05-22 10:41 | HO.ANESPROP2 ---
HPI - Anesthesia Eval Consult details Narrative: 72yo M for Colonoscopy Follows [facility] for CAD. Last office visit routine, 03/2023. Stable with yearly f/u [facility] Active Problems Active Problems: All Active Problems (Updated 05/19/23 @ 09:20 by Jennifer Ge, RN) Elevated cholesterol (Acute) Abdominal bloating (Acute) History of colonic polyps (Acute) Obesity (BMI 30.0-34.9) (Acute) LEMONS (nonalcoholic steatohepatitis) (Acute) Hyperlipidemia (Acute) BPH (benign prostatic hyperplasia) (Acute) Peripheral vascular disease (Acute) CAD (coronary artery disease) (Acute) Erectile dysfunction (Acute) Elevated PSA (Acute) Obstructive sleep apnea (Acute) Essential hypertension (Acute) PVC (premature ventricular contraction) (Acute) Statin intolerance (Acute) Atherosclerotic cardiovascular disease (Acute) Past Medical History Medical History CAD (coronary artery disease) CHF (congestive heart failure) On beta mere at home HTN (hypertension) Diabetes mellitus DVT (deep venous thrombosis) GERD (gastroesophageal reflux disease) LEMONS (nonalcoholic steatohepatitis) FLORES (obstructive sleep apnea) PVC (premature ventricular contraction) Statin intolerance Atherosclerotic cardiovascular disease History of colonic polyps Family History Family History Father No problems noted. Mother Stroke Brother Liver disease Surgical History Surgical History (Updated 06/06/23 @ 10:45 by Loreta Jones) Hx of tonsillectomy History of hand surgery Hx of cardiac cath Hx of colonoscopy Social History Social History Household Members: Spouse Alcohol intake: current Alcohol intake frequency: does not drink Patient Tobacco Use Status: Never used Tobacco Meds Allergies Allergy/AdvReac Type Severity Reaction Status Date / Time Spwajeh-JNY-UhM Reductase AdvReac Mild Abdominal Verified 04/04/23 10:06 Inhibitor Pain Exam Height,Weight and Vital Signs: Height 5 ft 9 in Weight 86.183 kg Pertinent Lab Results Pertinent Lab Results: Laboratory Tests 10/28/22 09:42 WBC 6.6 Hgb 15.0 Hct 44.2 Plt Count 227 Sodium 141 Potassium 5.1 Chloride 106 Carbon Dioxide 27 BUN 22 H Creatinine 0.99 Narrative Narrative: EKG 03/2023 sinus rhythm at 81/Min; minimal criteria for LVH; no significant ST-T changes; normal SC and corrected QT. Cardiac catheterization from 2019 shows patent stent in the LAD; 90% ostial diagonal disease-small vessel; 80% ostial right PDA disease, medically managed. Last echocardiogram with preserved LVEF 55-60% and basal inferior/inferoseptal hypokinesis that may be related to the PDA disease. Assessment and Plan Assessment Anesthesia Assessment: Chart Reviewed
[2023-05-23 13:08] VITALS: BMI 27.9
[2023-05-23 13:32] VITALS: BP 151/84; PULSE 82; RESP 16; TEMP 36.1; O2SAT 97
[2023-05-23] MEDS: Lactated Ringers 1,000 ML 100 ML IVCONT (13:34)
--- NOTE | 2023-05-23 13:40 | MHC.SHP ---
Pre-Procedural Eval Section A Date of Service: 05/23/23 The patient is an INPATIENT: No The History & Physical has been completed within 30 days and I have reviewed it.: No Section B Chief Complaint: Abdominal distension (gaseous),hx colonic polyps Relevant Family History (Specify if Yes): No Relevant Social History: None Present Medications: see Short Stay Collaborative assessment Medical History: Significant History (Atherosclerotic cardiovascular disease CHF (congestive heart failure) Diabetes mellitus DVT (deep venous thrombosis) GERD (gastroesophageal reflux disease) History of colonic polyps HTN (hypertension) LEMONS (nonalcoholic steatohepatitis) On beta mere at home FLORES (obstructive sleep apnea) PVC (madan) History of Previous Operations: Relevant previous surgery/procedure and date(s) (History of hand surgery Hx of cardiac cath Hx of colonoscopy Hx of tonsillectomy) Allergies: Allergies Allergy/AdvReac Type Severity Reaction Status Date / Time Vsnrpyf-EVV-XtJ Reductase AdvReac Mild Abdominal Verified 04/04/23 10:06 Inhibitor Pain Review of Systems Sugical H&P ROS: Negative: Constitution, Cardiovascular, Respiratory and Gastrointestinal Exam Surgical H&P Exam: Normal: Heart, Normal: Lungs, Normal: Extremities and Normal: Abdomen Plan Diagnosis/Plan: Unchanged I have reviewed the history and physical and performed a pertinent physical examination on my patient. No changes have occurred unless specified. Time Spent With Patient Time: Total time managing care of this patient today ____ minutes.
--- NOTE | 2023-05-23 14:31 | PC.NURSE ---
Pre- op care transitioned to [facility].
--- NOTE | 2023-05-23 16:00 | HO.ANESPROP2 ---
HPI - Anesthesia Eval Consult details Narrative: screening colonoscopy REPLACED BY [facility] Active Problems Active Problems: All Active Problems (Updated 05/19/23 @ 09:20 by Jennifer Ge, AMELIA) Elevated cholesterol (Acute) Abdominal bloating (Acute) History of colonic polyps (Acute) Obesity (BMI 30.0-34.9) (Acute) LEMONS (nonalcoholic steatohepatitis) (Acute) Hyperlipidemia (Acute) BPH (benign prostatic hyperplasia) (Acute) Peripheral vascular disease (Acute) CAD (coronary artery disease) (Acute) Erectile dysfunction (Acute) Elevated PSA (Acute) Obstructive sleep apnea (Acute) Essential hypertension (Acute) PVC (premature ventricular contraction) (Acute) Statin intolerance (Acute) Atherosclerotic cardiovascular disease (Acute) Past Medical History Medical History CAD (coronary artery disease) CHF (congestive heart failure) On beta mere at home HTN (hypertension) Diabetes mellitus DVT (deep venous thrombosis) GERD (gastroesophageal reflux disease) LEMONS (nonalcoholic steatohepatitis) FLORES (obstructive sleep apnea) PVC (premature ventricular contraction) Statin intolerance Atherosclerotic cardiovascular disease History of colonic polyps Family History Family History Father No problems noted. Mother Stroke Brother Liver disease Family history of problems with anesthesia: No Surgical History Surgical History Hx of tonsillectomy History of hand surgery Hx of cardiac cath Hx of colonoscopy History of Problems with Anesthesia: No Social History Social History Household Members: Spouse Alcohol intake: current Alcohol intake frequency: does not drink Patient Tobacco Use Status: Never used Tobacco Use of substances other than those prescribed or required for medical reasons: No Are you DNR?: No Advance Directives: No Advance Directives Information Provided: Yes Meds Allergies Allergy/AdvReac Type Severity Reaction Status Date / Time Caowexq-NVU-StT Reductase AdvReac Mild Abdominal Verified 04/04/23 10:06 Inhibitor Pain Active Medications: Current Medications Lactated Ringer's (Lr) 1,000 mls @ 100 mls/hr IVCONT .Q10H GALA Last Admin: 05/23/23 13:34 Dose: 100 mls/hr Exam Height,Weight and Vital Signs: Height 5 ft 9 in Weight 85.842 kg Last Vital Signs Temp 96.9 F 05/23/23 13:32 Pulse 82 05/23/23 13:32 Resp 16 05/23/23 13:32 BP 151/84 H 05/23/23 13:32 Pulse Ox 97 05/23/23 13:32 O2 Del Method Room Air 05/23/23 13:32 Airway Mallampati Class: II TM Dist: >3cm Neck ROM: Full Loose/Missing/Broken Teeth: No Heart: RRR Lungs: CTA Assessment and Plan Assessment Anesthesia Assessment: Anesthesia Plan Discussed and Chart Reviewed Final Anesthetic Review Family History of Problems with Anesthesia: No History of Problems with Anesthesia: No NPO: Yes ASA Class: III Final Preanesthetic Review: No Changes in Pt Med Stat, Meds/Allgs Chart Reviewed, Consent Obtained/Reviewed and Anes Risks/Benef Reviewed Patient Risk: Intermediate Procedure Risk: Low Anesthetic Plan Anesthetic Plan: TIVA Disposition: Standard PACU
--- NOTE | 2023-05-23 16:03 | W.PM.OPN ---
Operative Note Operative Note Date of Service: 05/23/23 Narrative: COLONOSCOPY TILL CECUM WITH SNARE POLYPECTOMY Pre-op diagnosis: Surveillance for colon polyp Post-op diagnosis:? Colon polyps, diverticulosis, hemorrhoids Endoscopist:? Frannie Padilla MD Anesthesia:?MAC Consent: Indications for the procedure and potential complications of bleeding, perforation, reaction to medications and missed diagnosis were discussed with the patient and informed consent was obtained. Instrument: Olympus CF H 190 L variable stiffness adult colonoscope Monitoring: Vital signs and clinical assessment, intermittent blood pressure monitoring, continuous EKG monitoring, Pulse oximetry and Carbon Dioxide monitoring were done throughout the procedure. Please see anesthesia flowsheet. Colon withdrawl time was 23 minutes. Procedure: The patient was placed in the left lateral decubitis position and pre-procedure medications were administered. After a digital rectal examination of the ano-rectum, the video colonoscope was inserted into the rectum and advanced through the colon to the cecum. The colonoscope was slowly withdrawn in a retrograde panoramic fashion and the colon mucosa was carefully examined including a retroflexed view of the rectum. Findings and interventions are described below. Procedure Difficulty: Without difficulty Findings: Terminal Ileum: Not evaluated Cecum: Normal Ascending Colon: Two 6-7 mm sessile polyps in the proximal and distal AC - removed with a cold snare Transverse Colon: Normal Descending Colon: Two 12-15 mm sessile polyps - removed with a hot snare. Moderate diverticulosis Sigmoid Colon: Moderate diverticulosis Rectum: Normal Ano-rectum: Moderate internal hemorrhoids Colon preparation: Good after some irrigation Impression and Post Procedure Diagnosis: Colonoscopy Findings: Two small and two medium sized polyps removed Moderate diverticulosis seen in the left colon Moderate hemorrhoids on retroflexed exam. Plan: Await pathology results Patient has an appointment on 07/06/23 in the GI Clinic with Frannie Padilla M.D. Repeat Colonoscopy interval based on path results - in 3-5 years if polyps are adenomatous and due to history of adenomatous colon polyp. Above findings were reviewed with the patient and colon polyps handout was given in the discharge area
[2023-05-23 16:45] VITALS: BP 96/62; PULSE 63; RESP 15; TEMP 36.2; O2SAT 96
[2023-05-23 17:00] VITALS: BP 121/77; PULSE 71; RESP 16; O2SAT 96
[2023-05-23 17:15] VITALS: BP 132/72; PULSE 67; RESP 16; TEMP 36.5; O2SAT 96
== END 2023-05-23 17:24 | disposition home or self-care (01) ==
PROVIDERS: Visit Provider Internal Medicine Gastroenterology
PROC: 0DJD8ZZ Inspection of Lower Intestinal Tract, Via Natural or Artificial Opening Endoscopic (ICD-10-PCS; CPT 45378; principal; 2023-05-23 14:50)
DX: Z12.11 Encounter for screening for malignant neoplasm of colon (principal); D12.2 Benign neoplasm of ascending colon; K57.30 Diverticulosis of large intestine without perforation or abscess without bleeding; K64.8 Other hemorrhoids; Z86.010 Personal history of colon polyps; I10 Essential (primary) hypertension; G47.33 Obstructive sleep apnea (adult) (pediatric); Z99.89 Dependence on other enabling machines and devices; E78.00 Pure hypercholesterolemia, unspecified; K75.81 Nonalcoholic steatohepatitis (NASH)
CPT/HCPCS: 45385; 88305; J2704

== ENCOUNTER → 2023-05-23 12:45 | Outpatient (BNV) | payer MEDICARE, SELFPAY | PROVIDERS: Visit Provider Internal Medicine Gastroenterology | DX: Z12.11 Encounter for screening for malignant neoplasm of colon (principal); K57.30 Diverticulosis of large intestine without perforation or abscess without bleeding; K64.8 Other hemorrhoids; D12.2 Benign neoplasm of ascending colon; D12.4 Benign neoplasm of descending colon | CPT/HCPCS: 45385 ==

== ENCOUNTER 2023-07-06 07:29 | Outpatient (AMB) | payer MEDICARE, SELFPAY ==
--- NOTE | 2023-07-06 07:37 | A.OFFVIS_ITS ---
Intake Vital Signs 07/06/23 07:42 Height 5 ft 8 in Weight 190 lb BMI 28.9 BP 153/74 H Blood Pressure Location Lt brachial Position Sitting Pulse 79 Intake Visit Reasons: s/p colon Intake Note: Patient follow up for Colonoscopy results. Patient cc: abdominal bloating. Denies any other GI issues. [employer] Required: No Accompanied by: Self / Same As Patient Allergies [id number] Reductase Inhibitor Adverse Reaction (Mild, Verified 07/06/23 07:39) Abdominal Pain Medication List - Last Reconciled 07/06/23 by Frannie Padilla MD nitroglycerin 0.4 mg sublingual Q5M PRN HPI s/p colon HPI Details GI clinic visit for this 72-year-old male for follow-up of adenomatous colon polyps, elevated LFTs, fatty liver and obesity. ?CHRONIC ILLNESSES:?Essential hypertension, sleep apnea, syncope, elevated PSA, erectile dysfunction. ?[facility]S [facility]:?10/04/19 Reviewed INR 1.0, ? BILIRUBIN, TOTAL 1.1 H ? GOT 34 (5-37) (U/L) ? GPT 44 H (0-40) (U/L) ?IMAGING STUDIES: 04/09/2019 ABDOMINAL ULTRASOUND SHOWED: ? Hepatic steatosis with focal fatty sparing. ? Rest of the abdominal ultrasound is unremarkable. ?ENDOSCOPIC STUDIES: 05/23/23 COLONOSCOPY SHOWED: Two small and two medium sized polyps removed Moderate diverticulosis seen in the left colon Moderate hemorrhoids on retroflexed exam. Plan: Repeat Colonoscopy interval based on path results - in 3-5 years if polyps are adenomatous and due to history of adenomatous colon polyp. 07/07/20 COLONOSCOPY SHOWED: ? Two small (serrated polyps) and two medium sized (hyperplastic) polyps removed ? Moderate diverticulosis seen in the left colon ? Plan:? Repeat Colonoscopy interval based on path results - in 3 years if polyps are adenomatous and 5 years if polyps are hyperplastic. ? ? ? BIOPSIES SHOWED: A.? Colon, ascending, polypectomy:-? Fragments of sessile serrated polyp. B.? Cecum, polypectomy:? Colonic mucosa with prominent lymphoid aggregate; no dysplasia seen. C.? Colon, proximal ascending, polypectomy:? Sessile serrated polyp with small perineurioma. D.? Rectum, polypectomy:? Hyperplastic mucosal polyp. 06/25/19 colonoscopy showed: ? Two polyps removed - BX showed fragments of sessile serrated polyp. ? Small hemorrhoids on retroflexed exam. ? Plan:? Repeat Colonoscopy interval based on path results in 1-2 years if ? cecal polyps are adenomatous to check polypectomy site and 10 years if polyps are hyperplastic. ? Above findings were reviewed with the patient and handout on Colon polyps was given in the discharge area BIOPSIES SHOWED: A.? Colon, ascending, polypectomy:-? Fragments of sessile serrated polyp. B.? Cecum, polypectomy:? Colonic mucosa with prominent lymphoid aggregate; no dysplasia seen. C.? Colon, proximal ascending, polypectomy:? Sessile serrated polyp with small perineurioma. D.? Rectum, polypectomy:? Hyperplastic mucosal polyp. ?TODAY'S VISIT Gained 10 -11 lbs - ? related to being less active. Denies ankle edema. Complains of increased frequency of micturation Able to loose wt to 183 lbs Resumed walking - tries to walk 7000 steps daily Has bloating when he eats too much bread. Fasting blood sugar range from a 100 to 105 Denies heartburn, dysphagia, constipation or diarrhea. On no medications - takes aspirin intermittently PAST VISITS: Has gained wt from 182 to 192 (187 lbs at home) Has been less active during the winter. Plans to start walking. When he wakes up at 8:30 am, checks his blood sugar and is 120 to 138 Has a brunch at 10 am and has suppper 4 to 5 pm. Bloating has improved since he cut back on carbohydrates. Cut out saturated fat from his diet. Taking some fibre since he notes fatigue and bloating witth bread and whole grain. Taking more fruit and salad Cooks at home and does not eat packaged food. likes to cook. Feeling a little better than last visit. Made some changes in the diet - eating a little less and watching the saturated fat in his diet. Feeling weird - having constipation since Jun, 2021 Feels dizzy when he tries to walk. Notes gas and bloating - like never before Has breakfast at 10 am - 3 eggs, torrez or home cooked ham Takes some cottage cheese or a slice of white cheese Has salads a few times a day Eating a handful of berries and eats nuts every night. Has home cooked meals for dinner at 5 pm - mostly soup Blood sugar levels are 120 to 130 when he wakes up. Wt is going up slowly. Has a Bm every other day and is painful. Trying to avoid the carbs. Continues to walk daily and having some back pain and associated with urination (? due to gas) Lost 14 lbs over the past 3 months by changing his diet. Planning to loose to 170 lbs. Walking 1.5 hrs (5 miles) every day. Using [place] and sesame seed oil. ?Taking more fibre in his diet. ? Continuing to walk daily - loosing weight slowly. ? Using a special belt which is helping with back pain. Had a son who at age 38 yrs from Pulmonary Htn. Tx from [place] to [place] for a lung transplant and did not survive. Has relatives in [place] that he visits periodically ? PAST VISIT: Colonoscopy results were reviewed. ? Denies problems after colonoscopy. ? Lost 10 lbs - has been walking every day. ? Not eating any cold cut meats. ? Working on loosing weight and has lost 7 lbs - fat layer is a little less. ? Weighs 194.5 lbs ? is cooking without fat. ? Unable to excercise due to palpitations. ? Is able to walk with some breaks. ? Denies taking any ETOH for the last 3 yrs. ? He states he drank ETOH in [place] in the and states he was poisoned and he was jaundiced afterwards. He is uncertain of the diagnosis but a medication cleared it up. ? Denies exposure to Hep B, C, D, HIV or tuberculosis ? Admits cardiac issues- HTN, had a stent placed in 2015, ahs SOB when walking on an incline, cardiology appointment in June 2019- may request for him to seen sooner prior to colonoscopy for clearance. ? Denies CP but has some mild discomfort with?excecise [facility] Medical History (Updated 07/06/23 @ 07:57 by Frannie Padilla MD) CAD (coronary artery disease) CHF (congestive heart failure) On beta mere at home HTN (hypertension) Diabetes mellitus DVT (deep venous thrombosis) GERD (gastroesophageal reflux disease) LEMONS (nonalcoholic steatohepatitis) FLORES (obstructive sleep apnea) PVC (premature ventricular contraction) Statin intolerance Atherosclerotic cardiovascular disease History of colonic polyps Surgical History (Updated 06/06/23 @ 10:45 by Loreta Jones) Hx of tonsillectomy History of hand surgery Hx of cardiac cath Hx of colonoscopy Family History Father No problems noted. Mother Stroke Brother Liver disease Social History Household Members: Spouse Alcohol intake: current Alcohol intake frequency: does not drink Patient Tobacco Use Status: Never used Tobacco Review of Systems Const All systems reviewed & are unremarkable except as noted in HPI and below Physical Exam Const General: comfortable and no acute distress Orientation/consciousness: patient oriented x3 HEENT Other: Unremarkable Head: Yes normal to inspection Neck Neck: Yes normal visual inspection Chest Chest palpation & inspection: normal inspection of the chest Resp Auscultation: clear to auscultation bilaterally Cardio Palpation: normal PMI Heart sounds: S1 normal heart sound present, S2 normal heart sound present, no gallops, no murmurs and no rubs GI Palpation (GI): Soft to palpation Back/Spine/Pelvis Other: unremarkable Skin General skin exam: no rashes or lesions noted Neuro General: patient oriented x3 Extrem General: Yes normal to inspection Psych Mental Status: mental status grossly normal Assessment & Plan Assessment & Plan (1) Abdominal bloating: Code(s): R14.0 - Abdominal distension (gaseous) (2) History of colonic polyps: Code(s): Z86.010 - Personal history of colonic polyps Plan: ENDOSCOPIC STUDIES: 05/23/23 COLONOSCOPY SHOWED: Two small and two medium sized polyps removed Moderate diverticulosis seen in the left colon Moderate hemorrhoids on retroflexed exam. Plan: Repeat Colonoscopy interval based on path results - in 5 years. (3) LEMONS (nonalcoholic steatohepatitis): Code(s): K75.81 - Nonalcoholic steatohepatitis (LEMONS) (4) Elevated LFTs: Code(s): R79.89 - Other specified abnormal findings of blood chemistry Plan 72 YM with Essential hypertension, sleep apnea, syncope, elevated PSA, erectile dysfunction, CAD, seen for FU of elevated LFTs likely due to fatty liver associated with obesity and follow-up of adenomatous colon polyps. Patient had a colonoscopy in Jul, 2020 and three sessile serrated polyps were removed.? Repeat colonoscopy is advised in 3 years (due in 07/2023). Patient was advised weight reduction for fatty liver. He and his are working on changing to a healthier diet with more fruits and vegetables. LFTs have been normal since he lost weight. He was advised to stop vitamin E when he finishes the current prescription. Patient handout on fatty liver from up-to-date was given to the patient at a previous visit. Symptoms of bloating and constipation have improved with change in diet (cutting back on fried foods). Pt was advised to establish care with a primary care physician for management of elevated cholesterol (since he has been following up with Cardiology and GI only) Repeat labs to recheck cholesterol at patient's request. Still looking for a PCP - given names of PCP providers to establish care. Advised a trail of a FODMAP diet for 6 weeks during his past visit. 07/06/23 Intermittent elevation of LFTs - likely due to steatohepatitis Liver fibrosis test showed Liver fibrosis score of 0.26 and stage F2 Schedule abd US with elastography Follow-up in 6 month Orders: Orders Liver Panel Today R79.89 - Other specified abnormal findings of blood chemistry US abdomen [facility] w elastography Today R79.89 - Other specified abnormal findings of blood chemistry Prothrombin Time INR Today R79.89 - Other specified abnormal findings of blood chemistry Coding Level of Care Code Est Pt Level 4 (41226) Diagnoses Abdominal bloating R14.0 History of colonic polyps Z86.010 LEMONS (nonalcoholic steatohepatitis) K75.81 Elevated LFTs R79.89 Time Spent (min) 18
[2023-07-06 07:42] VITALS: BP 153/74; PULSE 79; BMI 28.9
== END 2023-07-06 08:05 | disposition home or self-care (01) ==
PROVIDERS: Visit Provider Internal Medicine Gastroenterology
DX: R14.0 Abdominal distension (gaseous) (principal); Z86.010 Personal history of colon polyps; K75.81 Nonalcoholic steatohepatitis (NASH); R79.89 Other specified abnormal findings of blood chemistry
CPT/HCPCS: 99214

== ENCOUNTER → 2023-07-06 07:29 | Outpatient (BNVA) | payer MEDICARE, SELFPAY | PROVIDERS: Visit Provider Internal Medicine Gastroenterology | DX: R14.0 Abdominal distension (gaseous) (principal); K75.81 Nonalcoholic steatohepatitis (NASH); R79.89 Other specified abnormal findings of blood chemistry; Z86.010 Personal history of colon polyps | CPT/HCPCS: 99212 ==

== ENCOUNTER 2023-08-21 15:25 | Inpatient (IN) | payer MEDICARE, SELFPAY ==
--- NOTE | ~2023-08-21 | XR_ITS ---
EXAMINATION: PORTABLE CHEST 1 VIEW CLINICAL INFORMATION: CVA. COMPARISON: No recent pertinent prior studies are available for comparison. TECHNIQUE: Portable frontal view of the chest was obtained. FINDINGS: The lungs are hypoexpanded. No focal infiltrate, effusion, edema, or pneumothorax. Cardiac and mediastinal silhouettes are within normal limits for technique. No acute bony abnormality seen. XR/XR chest 1V IMPRESSION: Hypoexpanded but otherwise no evidence of acute disease.
--- NOTE | ~2023-08-21 | CT_ITS ---
CT ANGIOGRAM NECK WITH CONTRAST CT ANGIOGRAM BRAIN WITH CONTRAST CLINICAL INFORMATION: CVA. COMPARISON: Head CT 08/21/2023. TECHNIQUE: Test bolus sequences followed by intravenous administration 70 mL of Omnipaque 350. Helical imaging was performed in the axial plane from the thoracic inlet to the skull vertex. Delayed postcontrast imaging of the head was also performed. The data was processed at the radiologic technologist workstation for generation of MIP sequences. Angled MIPs and volume rendered reformatted images were also generated at an offline 3D workstation under concurrent supervision. Stenoses are assessed in accordance with NASCET criteria unless otherwise indicated. This CT examination was performed using dose optimization techniques as appropriate, variously including the following: *Automated exposure control *Adjustment of mA and/or kV according to patient size (this includes techniques or standardized protocols for targeted exams where dose is matched to indication/reason for exam; i.e. extremities or head) *Use of iterative reconstruction technique FINDINGS: BRAIN: Possible indeterminate age infarcts within the right parietal precentral gyrus and the left adonis that would be better assessed with MRI if not contraindicated. No mass effect and no hemorrhagic transformation. There is no intracranial hemorrhage, hydrocephalus, extra-axial surface collection, midline shift, or other herniation pattern. The basilar cisterns are preserved. No significant soft tissue abnormality. No acute osseous abnormality. Sinus disease as discussed previously. CERVICAL SOFT TISSUES AND LUNG APICES: The thyroid gland is heterogeneous and diffusely enlarged which can be correlated with thyroid ultrasound and thyroid function tests. The imaged lungs are clear. NECK CTA: [There is a classic 3 vessel configuration of the aortic arch. Proximal arch vessels are non-stenotic. The vertebral arteries are codominant. No significant ostial stenosis is visualized on either side. Both vertebral arteries are widely patent throughout their extracranial cervical course. Extensive fibrofatty atherosclerotic plaque involving the right internal carotid artery bulb resulting in a 60% stenosis of the proximal right internal carotid artery. There is atherosclerotic calcification involving the left carotid bifurcation without significant stenosis involving the proximal left internal carotid artery. BRAIN CTA: Atherosclerotic calcification results in a moderate to severe stenosis of the intradural left vertebral artery and a mild to moderate stenosis of the intradural right vertebral artery. There is extensive atherosclerotic calcification throughout the carotid siphons bilaterally resulting in a moderate stenosis of the right supraclinoid ICA segment and mild narrowing throughout the remaining carotid siphons. There is a 2 mm infundibulum versus aneurysm along the undersurface of the communicating segment of the left internal carotid artery. Timing of the contrast bolus allows assessment of the major dural venous sinuses, which all opacify normally] CT/CT angio head neck stroke IMPRESSION: - Possible indeterminate age infarcts within the right parietal precentral gyrus and the left adonis that would be better assessed with MRI if not contraindicated. No mass effect and no hemorrhagic transformation. - There are no acute arterial occlusions intracranially. - Extensive fibrofatty atherosclerotic plaque involving the right internal carotid artery bulb resulting in a 60% stenosis of the proximal right internal carotid artery. - Atherosclerotic calcification results in a moderate to severe stenosis of the intradural left vertebral artery and a mild to moderate stenosis of the intradural right vertebral artery. - There is extensive atherosclerotic calcification throughout the carotid siphons bilaterally resulting in a moderate stenosis of the right supraclinoid ICA segment and mild narrowing throughout the remaining carotid siphons. - There is a 2 mm infundibulum versus aneurysm along the undersurface of the communicating segment of the left internal carotid artery. - The thyroid gland is heterogeneous and diffusely enlarged which can be correlated with thyroid ultrasound and thyroid function tests.
--- NOTE | ~2023-08-21 | CT_ITS ---
CT HEAD WITHOUT IV CONTRAST INDICATION: Stroke alert. COMPARISON: None available. TECHNIQUE: Multidetector CT acquisitions of the head was obtained without IV contrast. This CT examination was performed using dose optimization techniques as appropriate, variously including the following: *Automated exposure control *Adjustment of mA and/or kV according to patient size (this includes techniques or standardized protocols for targeted exams where dose is matched to indication/reason for exam; i.e. extremities or head) *Use of iterative reconstruction technique FINDINGS: There is no intracranial hemorrhage, hydrocephalus, extra-axial surface collection, midline shift, or other herniation pattern. Soto to white matter differentiation is diffusely maintained without evidence of an evolved acute territorial infarct. The basilar cisterns are preserved. No significant soft tissue abnormality. No acute osseous abnormality. Moderate opacification of the sphenoid sinuses bilaterally and moderate mucosal thickening within the ethmoid air cells bilaterally. There is mild mucosal thickening within the right frontal sinus and there is a small retention cysts within the right maxillary sinus. Mastoid air cells are clear. CT/CT head for stroke IMPRESSION: There is suspected soto to white matter differentiation loss within the right parietal lobe suspicious for an acute infarct inclusive of the right parietal post central gyrus that can be correlated for left upper extremity sensory deficit. Artifact versus a small infarct within the left adonis. No mass effect and no hemorrhagic transformation. MRI would be more definitive if not contraindicated. Findings discussed with Eleanor Ontiveros at 4:00 PM on 08/21/2023.
--- NOTE | ~2023-08-21 | MR_ITS ---
EXAMINATION: MR BRAIN WITHOUT CONTRAST CLINICAL INFORMATION: Concern for CVA COMPARISON: CTA 08/21/2023 and MR brain 03/14/2018 TECHNIQUE: MRI of the brain was obtained using routine sequences without contrast. FINDINGS: As previously queried, there is an acute infarct within the left paramedian adonis without significant mass effect or reperfusion hemorrhage. No extra-axial fluid collection. Mild to moderate global cerebral volume loss. Patchy T2 FLAIR hyperintense foci in the subcortical and periventricular white matter, nonspecific but presumably mild chronic microangiopathy. Prominent perivascular spaces with adjacent gliosis versus chronic lacunar infarcts in the right peritrigonal white matter. Punctate chronic lacunar infarct in the right cerebellum. No mass lesion, mass effect, or herniation pattern. Normal intracranial arterial and dural venous sinus flow voids. Normal appearance of the midline structures. The orbits are grossly unremarkable. Dependent proteinaceous debris in the bilateral sphenoid sinuses with chronic mucoperiosteal thickening. Mild to moderate ethmoid air cell mucosal disease. Proteinaceous retention cyst in the right maxillary sinus. Normal marrow signal. MR/MR head/brain wo con IMPRESSION: 1. As previously queried, there is an acute infarct within the left paramedian adonis without significant mass effect or reperfusion hemorrhage. 2. Mild to moderate global cerebral volume loss and mild chronic microangiopathy. Prominent perivascular spaces with adjacent gliosis versus chronic lacunar infarcts in the right peritrigonal white matter. Tiny chronic lacunar infarct in the right cerebellum.
[2023-08-21 15:33] VITALS: BP 187/75; PULSE 76; RESP 18; TEMP 36.3; O2SAT 96; BMI 29.0
--- NOTE | 2023-08-21 15:35 | ED_ITS ---
HPI - General Adult General Chief complaint: Neuro Symptoms/Deficit Stated complaint: words slurred, sudden onset diff writing, and talk Time Seen by Provider: 08/21/23 15:43 History of Present Illness HPI narrative: 72 y/o M patient; PMH CAD, CHF, HTN, T2DM, GERD, FLORES, HLD; presents from home with who report patient woke up at 0900 this morning with a generalized headache. Around 1200 the patient's noted word finding difficulty and the patient himself noticed difficulty with his handwriting. Patient's states he has had intermittent neurological symptoms recently. Including upper and lower extremity numbness that has been transient, most recently 1 week ago. Patient denies any recent falls or traumas. Patient denies: chest pain, SOB, cough/congestion, fever or chills. LKW: 1200 Patient arrival:[id number] Related Data Previous Rx's Medication Instructions Recorded nitroglycerin 0.4 mg sublingual 0.4 mg sublingual Q5M PRN chest 04/04/23 tablet pain #30 tabs Allergies Allergy/AdvReac Type Severity Reaction Status Date / Time Dbzmlea-HYM-CoH Reductase AdvReac Mild Abdominal Verified 08/21/23 15:33 Inhibitor Pain Review of Systems 2 Review of Systems: Yes all other systems are reviewed and are negative Neurologic: Reports Abnormal speech present and Denies Sensory deficit (Neuro) [facility] Past Medical History Attestation statement: The following information was validated with the patient. Source: old records reviewed Medical History CAD (coronary artery disease) CHF (congestive heart failure) On beta mere at home HTN (hypertension) Diabetes mellitus DVT (deep venous thrombosis) GERD (gastroesophageal reflux disease) LEMONS (nonalcoholic steatohepatitis) FLORES (obstructive sleep apnea) PVC (premature ventricular contraction) Statin intolerance Atherosclerotic cardiovascular disease History of colonic polyps Surgical History Hx of tonsillectomy History of hand surgery Hx of cardiac cath Hx of colonoscopy Family History Family History Father No problems noted. Mother Stroke Brother Liver disease Social History Social History Household Members: Spouse Alcohol intake: current Alcohol intake frequency: does not drink Patient Tobacco Use Status: Never used Tobacco Smoked in Last 30 Days: No Use of substances other than those prescribed or required for medical reasons: No Advance Directives: No Advance Directives Information Provided: No Physical Exam ED Vital Signs: Vital Signs - 24 hr 08/21/23 15:33 08/21/23 16:00 Temperature 97.4 F Pulse Rate 76 79 Respiratory Rate 18 18 Blood Pressure 187/75 H 196/87 H Pulse Oximetry 96 98 Oxygen Delivery Method Room Air Room Air BMI result Body Mass Index 30.7 Patient is hypertensive, afebrile. Const General: cooperative Orientation/consciousness: patient oriented x3 HENMT Head: Yes atraumatic Eyes General: appearance normal, both eyes and all related structures Pupils: Equal, round and reactive pupils present EOM: EOMs intact bilaterally Neck Neck: Yes normal visual inspection, Yes full ROM, Yes supple and No tender Chest Chest palpation & inspection: normal inspection of the chest and normal palpation of entire chest wall Resp Effort & Inspection: normal respiratory effort, able to speak in complete sentences, no cough and no respiratory distress Auscultation: clear to auscultation bilaterally Cardio Rate: regular rate Rhythm: regular rhythm Peripheral pulses: Peripheral pulses 2+ throughout GI Inspection: Yes normal to inspection, No Abdominal wall edema and No distended Palpation (GI): Soft to palpation, not firm, nontender, no guarding and not rigid Auscultation: normal bowel sounds Neuro General: patient oriented x3, moves all extremities, no focal motor deficits and CN's II-XI intact bilaterally Cranial nerves: Yes Equal, round and reactive pupils present Speech: Abnormal speech present Motor exam (neuro): 5/5 motor strength present throughout Sensory Exam: No Sensory deficit (Neuro) NIH Stroke Scale Internal: Initial- Upon Arrival Level of Consciousness: Alert Level of Consciousness Questions: Answers both questions correctly Level of Consciousness Commands: Performs both tasks correctly Best Gaze: Normal Visual: No visual loss Facial Palsy: Normal Motor Arm (Right): No drift Motor Arm (Left): No drift Motor Leg (Right): No drift Motor Leg (Left): No drift Limb Ataxia: Absent Sensory: Normal Best Language: Mild to moderate aphasia Dysarthia: Mild to moderate dysarthria Extinction and Inattention: No abnormality Score: 2 Course Course Course Narrative: RME performed by Madina Farias, PA-C. Patient is a 72 year old assigned male at presenting to the emergency department with word slurring and trouble word finding since 1100 on 08/21/2023. Detailed physical exam and review of systems are deferred to the case manager. Labs ordered. Charge nurse made aware. Reevaluation(s) Reevaluation #1: Patient is afebrile and hemodynamically stable. Seen as CODE STROKE with LKN 1200 (per patient and ). Patient taken immediately to CT scanner. CT Head with suspicion for acute infarct inclusive of the right parietal post central gyrus with artifact versus small infarct within the left adonis. Discussed with Neurology - no indication for tNK at this time due to minimal neurological deficits and unclear time of onset. NIHSS 2 for aphasia and dysarthria. Discussed no indication for tNK with patient and patient's - they are in agreement. Also agreeable to admission with neurologist evaluation. Provided ASA 324mg PO. Plan: Admit to hospitalist Condition: Stable Medications Administered Discontinued Medications Generic Name Dose Route Start Last Admin Trade Name Vitaliyq PRN Reason Stop Dose Admin Iohexol 100 ml 08/21/23 16:01 08/21/23 16:02 Iohexol 350 Mg/Ml 100 Ml Infus..Btl IV 08/21/23 16:02 70 ml ONCE ONE Administration Medical Decision Making Lab Data 08/21/23 15:46 08/21/23 15:46 Labs: Lab Results 08/21/23 08/21/23 08/21/23 Range/Units 15:42 15:43 15:46 WBC 8.4 (4.8-10.8) X10*3/uL RBC 4.70 (4.60-5.80) X10*6/uL Hgb 14.6 (14.0-18.0) g/dl Hct 42.6 (42.0-52.0) % MCV 90.6 (80.0-98.0) fL MCH 31.1 (27.0-33.0) pg MCHC 34.3 (31.0-36.0) g/dl RDW 12.6 (11.0-16.0) % Plt Count 224 (160-400) X10*3/uL MPV 9.8 (9.4-12.4) fL Immature Gran % (Auto) 0.2 (0.0-0.4) % Neut % (Auto) 56.5 (45-73) % Lymph % (Auto) 32.0 (20-40) % [place] % (Auto) 9.6 (2-11) % Eos % (Auto) 1.0 (0-4) % Baso % (Auto) 0.7 (0-2) % Lymph # (Auto) 2.7 (1.2-4.9) X10*3/uL [place] # (Auto) 0.8 (0.1-1.2) X10*3/uL Eos # (Auto) 0.1 (0.0-0.4) X10*3/uL Baso # (Auto) 0.1 (0.0-0.2) X10*3/uL Abs Immat Gran (auto) 0.02 (0.00-0.03) X10*3/uL Absolute Neuts (auto) 4.8 (2.0-8.3) x10*3/uL Absolute Nucleated RBC 0.000 (0.0-0.012) X10*3/uL Nucleated RBC % (auto) 0.0 (0.0-0.2) /100WBC Whole Blood PT 14.0 H (11.1-13.5) sec Whole Blood INR 1.0 (0.9-1.1) Sodium 139 (135-145) mmol/L Potassium 4.0 (3.3-5.1) mmol/L Chloride 106 (96-108) mmol/L Carbon Dioxide 23 (22-29) mmol/L Anion Gap 14 (12-20) BUN 22 H (9-16) mg/dL Creatinine 1.14 (0.5-1.4) mg/dL Estim Creat Clear Calc 65.3 Estimated GFR > 60 POC Glucose 121 H (60-115) mg/dL Random Glucose 126 H (60-115) mg/dL Estimat Average Glucose mg/dL Hemoglobin A1c % (<6.0) % Calcium 9.4 (8.4-10.2) mg/dL Magnesium 2.2 (1.6-2.6) mg/dL Total Bilirubin 0.6 (0.0-1.0) mg/dL AST 35 (5-37) U/L ALT 56 H (0-40) U/L Alkaline Phosphatase 46 (39-117) U/L Total Creatine Kinase (38-174) U/L Troponin I High Sens < 2.7 (<3.5-35.0) ng/L Total Protein 7.5 (6.5-8.0) g/dL Albumin 4.5 (3.5-5.0) g/dL Lipase 30 (8-78) U/L / Range/Units 16:22 WBC (4.8-10.8) X10*3/uL RBC (4.60-5.80) X10*6/uL Hgb (14.0-18.0) g/dl Hct (42.0-52.0) % MCV (80.0-98.0) fL MCH (27.0-33.0) pg MCHC (31.0-36.0) g/dl RDW (11.0-16.0) % Plt Count (160-400) X10*3/uL MPV (9.4-12.4) fL Immature Gran % (Auto) (0.0-0.4) % Neut % (Auto) (45-73) % Lymph % (Auto) (20-40) % [place] % (Auto) (2-11) % Eos % (Auto) (0-4) % Baso % (Auto) (0-2) % Lymph # (Auto) (1.2-4.9) X10*3/uL [place] # (Auto) (0.1-1.2) X10*3/uL Eos # (Auto) (0.0-0.4) X10*3/uL Baso # (Auto) (0.0-0.2) X10*3/uL Abs Immat Gran (auto) (0.00-0.03) X10*3/uL Absolute Neuts (auto) (2.0-8.3) x10*3/uL Absolute Nucleated RBC (0.0-0.012) X10*3/uL Nucleated RBC % (auto) (0.0-0.2) /100WBC Whole Blood PT (11.1-13.5) sec Whole Blood INR (0.9-1.1) Sodium (135-145) mmol/L Potassium (3.3-5.1) mmol/L Chloride (96-108) mmol/L Carbon Dioxide (22-29) mmol/L Anion Gap (12-20) BUN (9-16) mg/dL Creatinine (0.5-1.4) mg/dL Estim Creat Clear Calc Estimated GFR POC Glucose (60-115) mg/dL Random Glucose (60-115) mg/dL Estimat Average Glucose 123 mg/dL Hemoglobin A1c % 5.9 (<6.0) % Calcium (8.4-10.2) mg/dL Magnesium (1.6-2.6) mg/dL Total Bilirubin (0.0-1.0) mg/dL AST (5-37) U/L ALT (0-40) U/L Alkaline Phosphatase (39-117) U/L Total Creatine Kinase 124 (38-174) U/L Troponin I High Sens (<3.5-35.0) ng/L Total Protein (6.5-8.0) g/dL Albumin (3.5-5.0) g/dL Lipase (8-78) U/L Radiology Impression Discussion of test interpretation with radiology: I have reviewed the radiologist's reading. Radiologist Impression: CT HEAD WITHOUT IV CONTRAST INDICATION: Stroke alert. COMPARISON: None available. TECHNIQUE: Multidetector CT acquisitions of the head was obtained without IV contrast. This CT examination was performed using dose optimization techniques as appropriate, variously including the following: *Automated exposure control *Adjustment of mA and/or kV according to patient size (this includes techniques or standardized protocols for targeted exams where dose is matched to indication/reason for exam; i.e. extremities or head) *Use of iterative reconstruction technique FINDINGS: There is no intracranial hemorrhage, hydrocephalus, extra-axial surface collection, midline shift, or other herniation pattern. Soto to white matter differentiation is diffusely maintained without evidence of an evolved acute territorial infarct. The basilar cisterns are preserved. No significant soft tissue abnormality. No acute osseous abnormality. Moderate opacification of the sphenoid sinuses bilaterally and moderate mucosal thickening within the ethmoid air cells bilaterally. There is mild mucosal thickening within the right frontal sinus and there is a small retention cysts within the right maxillary sinus. Mastoid air cells are clear. CT/CT head for stroke IMPRESSION: There is suspected soto to white matter differentiation loss within the right parietal lobe suspicious for an acute infarct inclusive of the right parietal post central gyrus that can be correlated for left upper extremity sensory deficit. Artifact versus a small infarct within the left adonis. No mass effect and no hemorrhagic transformation. MRI would be more definitive if not contraindicated. CT ANGIOGRAM NECK WITH CONTRAST CT ANGIOGRAM BRAIN WITH CONTRAST CLINICAL INFORMATION: CVA. COMPARISON: Head CT 08/21/2023. TECHNIQUE: Test bolus sequences followed by intravenous administration 70 mL of Omnipaque 350. Helical imaging was performed in the axial plane from the thoracic inlet to the skull vertex. Delayed postcontrast imaging of the head was also performed. The data was processed at the senior medical technologist workstation for generation of MIP sequences. Angled MIPs and volume rendered reformatted images were also generated at an offline 3D workstation under concurrent supervision. Stenoses are assessed in accordance with NASCET criteria unless otherwise indicated. This CT examination was performed using dose optimization techniques as appropriate, variously including the following: *Automated exposure control *Adjustment of mA and/or kV according to patient size (this includes techniques or standardized protocols for targeted exams where dose is matched to indication/reason for exam; i.e. extremities or head) *Use of iterative reconstruction technique FINDINGS: BRAIN: Possible indeterminate age infarcts within the right parietal precentral gyrus and the left adonis that would be better assessed with MRI if not contraindicated. No mass effect and no hemorrhagic transformation. There is no intracranial hemorrhage, hydrocephalus, extra-axial surface collection, midline shift, or other herniation pattern. The basilar cisterns are preserved. No significant soft tissue abnormality. No acute osseous abnormality. Sinus disease as discussed previously. CERVICAL SOFT TISSUES AND LUNG APICES: The thyroid gland is heterogeneous and diffusely enlarged which can be correlated with thyroid ultrasound and thyroid function tests. The imaged lungs are clear. NECK CTA: [There is a classic 3 vessel configuration of the aortic arch. Proximal arch vessels are non-stenotic. The vertebral arteries are codominant. No significant ostial stenosis is visualized on either side. Both vertebral arteries are widely patent throughout their extracranial cervical course. Extensive fibrofatty atherosclerotic plaque involving the right internal carotid artery bulb resulting in a 60% stenosis of the proximal right internal carotid artery. There is atherosclerotic calcification involving the left carotid bifurcation without significant stenosis involving the proximal left internal carotid artery. BRAIN CTA: Atherosclerotic calcification results in a moderate to severe stenosis of the intradural left vertebral artery and a mild to moderate stenosis of the intradural right vertebral artery. There is extensive atherosclerotic calcification throughout the carotid siphons bilaterally resulting in a moderate stenosis of the right supraclinoid ICA segment and mild narrowing throughout the remaining carotid siphons. There is a 2 mm infundibulum versus aneurysm along the undersurface of the communicating segment of the left internal carotid artery. Timing of the contrast bolus allows assessment of the major dural venous sinuses, which all opacify normally] CT/CT angio head neck stroke IMPRESSION: - Possible indeterminate age infarcts within the right parietal precentral gyrus and the left adonis that would be better assessed with MRI if not contraindicated. No mass effect and no hemorrhagic transformation. - There are no acute arterial occlusions intracranially. - Extensive fibrofatty atherosclerotic plaque involving the right internal carotid artery bulb resulting in a 60% stenosis of the proximal right internal carotid artery. - Atherosclerotic calcification results in a moderate to severe stenosis of the intradural left vertebral artery and a mild to moderate stenosis of the intradural right vertebral artery. - There is extensive atherosclerotic calcification throughout the carotid siphons bilaterally resulting in a moderate stenosis of the right supraclinoid ICA segment and mild narrowing throughout the remaining carotid siphons. - There is a 2 mm infundibulum versus aneurysm along the undersurface of the communicating segment of the left internal carotid artery. - The thyroid gland is heterogeneous and diffusely enlarged which can be correlated with thyroid ultrasound and thyroid function tests. Discharge Plan Discharge Patient Disposition: Admitted As Inpatient
[2023-08-21 15:40] VITALS: BMI 30.7
[2023-08-21 15:46] LABS: Glucose, Whole Blood 121 mg/dL (60-115)
--- NOTE | 2023-08-21 15:48 | PC.NURSE ---
coronary stent placement [facility] in 2017. [employer] Promus Premier. Card Returned to at bedside.
[2023-08-21 15:50] LABS: MANUAL DIFF FLAG NO
[2023-08-21 15:51] LABS: Basophils Absolute Auto 0.1 X10*3/uL (0.0-0.2); Basophils Percent Auto 0.7 % (0-2); Eosinophils Absolute Auto 0.1 X10*3/uL (0.0-0.4); Hematocrit 42.6 % (42.0-52.0); Hemoglobin 14.6 g/dl (14.0-18.0); Imm Gran Abs Auto 0.02 X10*3/uL (0.00-0.03); Imm Gran Pct Auto 0.2 % (0.0-0.4); Lymphocytes Absolute Auto 2.7 X10*3/uL (1.2-4.9); Mean Corpuscular HGB Conc 34.3 g/dl (31.0-36.0); Mean Corpuscular Hemoglobin 31.1 pg (27.0-33.0); Mean Corpuscular Volume 90.6 fL (80.0-98.0); Mean Platelet Volume 9.8 fL (9.4-12.4); Monocytes Absolute Auto 0.8 X10*3/uL (0.1-1.2); Monocytes Percent Auto 9.6 % (2-11); Neutrophils Absolute Auto 4.8 x10*3/uL (2.0-8.3); Neutrophils Percent Auto 56.5 % (45-73); Platelet Count 224 X10*3/uL (160-400); Red Cell Distribution Width 12.6 % (11.0-16.0); White Blood Count 8.4 X10*3/uL (4.8-10.8)
[2023-08-21 16:00] VITALS: BP 196/87; PULSE 79; RESP 18; O2SAT 98
[2023-08-21] MEDS: iohexoL 350 MG/ML 100 ML INFUS..BTL IV (16:02)
[2023-08-21 16:08] LABS: Alanine Aminotransferase 56 U/L (0-40); Albumin Level 4.5 g/dL (3.5-5.0); Alkaline Phosphatase 46 U/L (39-117); Anion Gap 14 (12-20); Aspartate Amino Transferase 35 U/L (5-37); Bilirubin Total 0.6 mg/dL (0.0-1.0); Blood Urea Nitrogen 22 mg/dL (9-16); Calcium 9.4 mg/dL (8.4-10.2); Carbon Dioxide 23 mmol/L (22-29); Chloride 106 mmol/L (96-108); Creatinine Clr Calc Pharmacy 65.3; Estimated Glomerular Filt Rate > 60; Glucose Random 126 mg/dL (60-115); Lipase 30 U/L (8-78); Magnesium 2.2 mg/dL (1.6-2.6); Sodium 139 mmol/L (135-145); Total Protein 7.5 g/dL (6.5-8.0)
--- NOTE | 2023-08-21 16:19 | MHC.STROKE ---
Called to ED for stroke alert. Upon arrival to ED, patient in CT scan. Pt moved to bed 20 once scan complete. Pt awake, alert and oriented x 3. Skin warm and dry. Resp unlabored. Denies N/V. reports that patient seemed altered yesterday and today. States that yesterday he complained of a headache and also had some speech difficulties. Today, patient woke with headache for which he took ibuprofen. Again reports word finding and speech difficulties. said she also felt that he seemed confused at times throughout the day. Patient agreed that his speech seemed off yesterday and today. Also reports that he has had some right leg weakness. Reports noticing it 2 weeks ago. Hand grasp equal, tongue midline, no facial droop appreciated, bilateral equal leg strength. Denies any vision change. Heel to wild test normal bilaterally. Nose to finger test normal. Patient is currently speaking in full sentences. Able to identify all objects on NIH Stroke scale naming list. Currently hypertensive, 196/87. Dr. Morales notified of above and also spoke with ED provider. TNK not indicated at this time. Stroke education provided to patient and . Swallow screen completed by primary RN. Patient agreeable to plan of care at this time. Will continue to assist with any stroke education as needed.
[2023-08-21 16:40] LABS: Estimated Average Glucose 123 mg/dL; Hemoglobin A1c % 5.9 % (<6.0)
[2023-08-21 16:41] LABS: Troponin-I High Sensitivity < 2.7 ng/L (<3.5-35.0)
--- NOTE | 2023-08-21 17:17 | P.HPHOSP_ITS ---
History of Present Illness Date of Service: 08/21/23 Chief Complaint: slurred speech 72-year-old man presenting to the ER with slurred speech. According to the patient's he woke up with a headache several hours later he had slurred speech and seemed confused to her. She reported yesterday he was in his usual state of health. Patient denied chest pain, shortness breast, nausea, vomiting, diarrhea, sick contacts, recent illness, recent travel. He does have a history of coronary artery disease and peripheral vascular disease. He stopped taking his blood pressure medication approximately 1 year ago had been intermittently taking aspirin. In the ER, head CT showed suspected grade 2 white matter differentiation loss within the right parietal lobe suspicious for an acute infarct inclusive of the right parietal postcentral gyrus and artifact versus small infarct within the left adonis, no mass effect or hemorrhagic conversion. His blood pressure was noted to be elevated with highest reading of 196/87 all other labs within acceptable limits. Patient is alert oriented with no neuro deficits at this time. He will be admitted for further management and treatment of acute CVA. Review of Systems 2 Review of Systems: Denies any recent fever chills or decrease in appetite respiratory denies any shortness of breath or cough cardiovascular denied chest pain gastrointestinal denies any dysphagia abdominal pain nausea vomiting or diarrhea genitourinary denies any dysuria frequency or hematuria musculoskeletal denies any joint pain or swelling neuropsych denies any weakness or seizures all other systems reviewed are negative [facility] Medical History CAD (coronary artery disease) CHF (congestive heart failure) On beta mere at home HTN (hypertension) Diabetes mellitus DVT (deep venous thrombosis) GERD (gastroesophageal reflux disease) LEMOSN (nonalcoholic steatohepatitis) FLORES (obstructive sleep apnea) PVC (premature ventricular contraction) Statin intolerance Atherosclerotic cardiovascular disease History of colonic polyps Family History Father No problems noted. Mother Stroke Brother Liver disease Surgical History Hx of tonsillectomy History of hand surgery Hx of cardiac cath Hx of colonoscopy Social History Household Members: Spouse Alcohol intake: current Alcohol intake frequency: does not drink Patient Tobacco Use Status: Never used Tobacco Meds Allergies Allergy/AdvReac Type Severity Reaction Status Date / Time [id number]-UNA-AcF Reductase AdvReac Mild Abdominal Verified 08/21/23 15:33 Inhibitor Pain Home Medications Medication Instructions Recorded Confirmed Last Taken Type cyanocobalamin (vitamin B-12) 1,000 mcg PO DAILY 08/21/23 08/21/23 Unknown History 1,000 mcg tablet multivitamin 1 tab PO DAILY 08/21/23 08/21/23 Unknown History Physical Exam 2 Vital Signs and Narrative: Vital Signs: Last Vital Signs Temp 97.4 F 08/21/23 15:33 Pulse 79 08/21/23 16:00 Resp 18 08/21/23 16:00 BP 196/87 H 08/21/23 16:00 Pulse Ox 98 08/21/23 16:00 O2 Del Method Room Air 08/21/23 16:00 BMI result Body Mass Index 30.7 Appearing in no acute distress head is normocephalic atraumatic eyes pupils are PERRLA sclera is anicteric mouth throat mucous membranes are intact and moist neck is supple no lymphadenopathy, no JVD noted lung sounds are clear to auscultation heart regular rate rhythm, clear S1, S2 positive bowel sounds, abdomen is soft, nontender neuro patient is alert x3, no focal deficits, 5/5 strength to upper and lower extremities Results Labs 08/21/23 15:46 08/21/23 15:46 Labs: Laboratory Results - last 24 hr 08/21/23 08/21/23 08/21/23 15:42 15:43 15:46 MCV 90.6 MCH 31.1 MCHC 34.3 RDW 12.6 Plt Count 224 MPV 9.8 Immature Gran % (Auto) 0.2 Neut % (Auto) 56.5 Lymph % (Auto) 32.0 Wilbarger % (Auto) 9.6 Eos % (Auto) 1.0 Baso % (Auto) 0.7 Lymph # (Auto) 2.7 Wilbarger # (Auto) 0.8 Eos # (Auto) 0.1 Baso # (Auto) 0.1 Abs Immat Gran (auto) 0.02 Absolute Neuts (auto) 4.8 Absolute Nucleated RBC 0.000 Nucleated RBC % (auto) 0.0 Whole Blood PT 14.0 H Whole Blood INR 1.0 Anion Gap 14 Estim Creat Clear Calc 65.3 Estimated GFR > 60 POC Glucose 121 H Random Glucose 126 H Estimat Average Glucose Hemoglobin A1c % Calcium 9.4 Magnesium 2.2 Total Bilirubin 0.6 AST 35 ALT 56 H Alkaline Phosphatase 46 Total Creatine Kinase Troponin I High Sens < 2.7 Total Protein 7.5 Albumin 4.5 Lipase 30 08/21/23 16:22 MCV MCH MCHC RDW Plt Count MPV Immature Gran % (Auto) Neut % (Auto) Lymph % (Auto) Wilbarger % (Auto) Eos % (Auto) Baso % (Auto) Lymph # (Auto) Wilbarger # (Auto) Eos # (Auto) Baso # (Auto) Abs Immat Gran (auto) Absolute Neuts (auto) Absolute Nucleated RBC Nucleated RBC % (auto) Whole Blood PT Whole Blood INR Anion Gap Estim Creat Clear Calc Estimated GFR POC Glucose Random Glucose Estimat Average Glucose 123 Hemoglobin A1c % 5.9 Calcium Magnesium Total Bilirubin AST ALT Alkaline Phosphatase Total Creatine Kinase 124 Troponin I High Sens Total Protein Albumin Lipase Imaging Radiologist's Impressions: Impressions Head CT 08/21/23 15:51 IMPRESSION: There is suspected muñoz to white matter differentiation loss within the right parietal lobe suspicious for an acute infarct inclusive of the right parietal post central gyrus that can be correlated for left upper extremity sensory deficit. Artifact versus a small infarct within the left adonis. No mass effect and no hemorrhagic transformation. MRI would be more definitive if not contraindicated. Findings discussed with Eleanor Ontiveros at 4:00 PM on 08/21/2023. Head/Neck CTA 08/21/23 16:14 IMPRESSION: - Possible indeterminate age infarcts within the right parietal precentral gyrus and the left adonis that would be better assessed with MRI if not contraindicated. No mass effect and no hemorrhagic transformation. - There are no acute arterial occlusions intracranially. - Extensive fibrofatty atherosclerotic plaque involving the right internal carotid artery bulb resulting in a 60% stenosis of the proximal right internal carotid artery. - Atherosclerotic calcification results in a moderate to severe stenosis of the intradural left vertebral artery and a mild to moderate stenosis of the intradural right vertebral artery. - There is extensive atherosclerotic calcification throughout the carotid siphons bilaterally resulting in a moderate stenosis of the right supraclinoid ICA segment and mild narrowing throughout the remaining carotid siphons. - There is a 2 mm infundibulum versus aneurysm along the undersurface of the communicating segment of the left internal carotid artery. - The thyroid gland is heterogeneous and diffusely enlarged which can be correlated with thyroid ultrasound and thyroid function tests. Assessment and Plan (1) Acute CVA (cerebrovascular accident): Status: Acute Plan 72 year old man admitted with cute CVA Acute CVA Head CT and CTA showing indeterminate age infarcts within the right parietal precentral gyrus and left adonis, no acute arterial occlusion, extensive atherosclerotic plaque involving the right internal carotid artery bulb resulting in 60% stenosis of the proximal right internal carotid artery Neuro consultation MRI echo PT/OT monitor on telemetry neuro checks asa Hypertensive urgency patient reports that he stopped taking BP medication 1 year ago for now will give labetolol IV prn for SBP >190 to avoid hypotension follow BP closely to determine if patient needs to be started again CAD asa, not on statin due to MSK pain Obesity. BMI. 30.7 Discussed importance of weight management as this may be contributing to worsening of other comorbidities DVT prophylaxis with pneumatic compression boots Full code Patient will need 48 hours for workup of acute CVA and specialty consultation. Due to hypertensive urgency patient could decompensate quickly and this can not be done at a lesser acute setting. Quality Stroke Does the patient have a stroke diagnosis?: No VTE Prior VTE?: No VTE Risk Level:: Medical - moderate - high VTE Device Contraindication: N/A - Device Ordered VTE Drug Contraindication: Treatment Not Indicated
[2023-08-21] MEDS: Aspirin 81 MG TAB.CHEW 324 MG PO (17:21)
[2023-08-21 17:25] LABS: Influenza A PCR NEGATIVE (Negative); Influenza B PCR NEGATIVE (Negative); Resp Syncy Virus RNA Qual PCR NEGATIVE (Negative); SARS COV2 PCR INHOUSE NEGATIVE (Negative)
--- NOTE | 2023-08-21 17:35 | PHA.MEDREC ---
Pharmacy Consult ? Medication Reconciliation Pharmacy has completed the medication reconciliation. Patient reported only vitamins, and the occasional aspirin. Left aspirin out has it only every once in a while. Evon Desir, PharmD
[2023-08-21 19:56] VITALS: BP 180/76; PULSE 70; RESP 18; O2SAT 100
[2023-08-22] VITALS (7 sets, daily range): BP systolic 154–174; BP diastolic 69–76; PULSE 63–74; RESP 12–20; TEMP -17.7–36.8; O2SAT 94–98
[2023-08-22] MEDS: 0.9 % Sodium Chloride Flush 3 ML SYRINGE IVFLUSH ×2 (01:43→08:48)
[2023-08-22 05:36] LABS: Alanine Aminotransferase 48 U/L (0-40); Albumin Level 4.2 g/dL (3.5-5.0); Alkaline Phosphatase 41 U/L (39-117); Anion Gap 13 (12-20); Aspartate Amino Transferase 29 U/L (5-37); Blood Urea Nitrogen 18 mg/dL (9-16); Calcium 9.3 mg/dL (8.4-10.2); Carbon Dioxide 27 mmol/L (22-29); Chloride 107 mmol/L (96-108); Creatinine Clr Calc Pharmacy 82.7; Estimated Glomerular Filt Rate > 60; Glucose Random 100 mg/dL (60-115); Potassium 4.5 mmol/L (3.3-5.1); Sodium 142 mmol/L (135-145); Total Protein 6.9 g/dL (6.5-8.0)
[2023-08-22 05:52] LABS: Cholesterol 209 mg/dL (<200); HDL Cholesterol 42 mg/dL (>40); LDL Cholesterol Calculated 140 mg/dL (<100); Triglycerides 139 mg/dL (<150)
--- NOTE | 2023-08-22 07:00 | CA_ITS ---
Transthoracic Echocardiogram Patient (Last, First, Middle): Toño Caceres J Gender: Male Date of : 1950 Age: 72 Procedure Date: 08/22/2023 Procedure Type: Transthoracic Echocardiogram Location: ER Height: 172. cm Weight: 91.17 kg BSA: 2.04 m2 Heart Rate: 68 bpm BP: 162 / 75 mmHg Slubber Frame Changer: RAMÓN Referring MD: Claudine Ackerman NP Symptoms: cva Study Quality: Fair w/Contrast ECG Rhythm: Sinus Conclusions: - The left ventricular systolic function is mildly decreased. The calculated ejection fraction is 49% by biplane method. - The basal inferior, mid inferior, apical septum, and mid inferolateral segments are hypokinetic. - No obvious valvular pathology seen on this study. - There is mild dilatation of the ascending aorta measuring 4.00 cm. Findings Procedure Information Contrast agent, definity, is being given per protocol without apparent complications. Left Ventricle Normal left ventricular cavity size. There is normal left ventricular wall thickness. The left ventricular systolic function is mildly decreased. The calculated ejection fraction is 49% by biplane method. Evidence suggests grade I (mild) diastolic dysfunction. Wall Motion Rest Echo Findings The basal inferior, mid inferior, apical septum, and mid inferolateral segments are hypokinetic. Right Ventricle Normal right ventricular cavity size and systolic function. Atria Both atria are normal in size. Aortic Valve There is a normal trileaflet aortic valve. There is mild calcification of the aortic valve. There is no aortic valve stenosis. There is trace (trivial) aortic valve regurgitation. Mitral Valve The mitral valve appears normal. There is trace mitral valve regurgitation. There is no mitral valve stenosis. Pulmonic Valve The pulmonic valve is likely normal. Tricuspid Valve Normal tricuspid valve structure. There is trace tricuspid valve regurgitation. There is no evidence of pulmonary hypertension. Great Vessels There is mild dilatation of the ascending aorta measuring 4.00 cm. Venous The inferior vena cava was not well visualized. The inferior vena cava is normal in size. Pericardium/Pleural There is no evidence of pericardial effusion. Prior Study Comparison No significant change compared to prior study dated: 11/17/2020. Recommendations, Care & Conclusions No obvious valvular pathology seen on this study. Measurements 2D Linear Measurements IVSd: 0.98 0.6-0.9/0.6-1.0 cm LVIDd: 4.30 3.9-5.3/4.2-5.9 cm LVIDd Index: 2.11 2.4-3.2/2.2-3.1 cm/m2 LVIDs: 2.58 2.0-3.6 cm LVPWd: 0.94 0.7-1.1 cm LA Diam: 3.40 2.7-3.8/3.0-4.0 cm LAIDs Index: 1.67 1.5-2.3 cm/m2 LV Mass: 167.46 67-162/88-224 g LV Mass Index: 82.09 43-95/49-115 g/m2 LVOT Diam: 2.10 3.0+(-)1.3 cm 2D Systolic Function EF 4C: 50.70 >55% EF 2C: 50.50 >55% EF BiP: 49.30 >55% Mitral Valve MV Pk E: 0.65 MV PK A: 0.76 MV Decel Time: 257.00 E/A: 0.80 E'Lateral: 7.62 E'Medial: 5.22 E/E' Med: 12.40 E/E' Lat: 8.50 PHT: 75.00 MVA PHT: 2.93 Decel Simpson: 2.52 Aortic Valve AoV Pk Leonides: 2.01 AoV Mn Leonides: 1.45 AoV VTI: 0.46 AoV Pk Grad: 16.00 Aov Mn Grad: 10.00 YOGESH Cont.VTI: 1.87 LVOT LVOT Pk Leonides: 1.22 LVOT Mn Leonides: 0.77 LVOT VTI: 0.25 LVOT Pk Grad: 6.00 LVOT Mn Grad: 3.00 LVOT Diam: 2.10 LVOT Area: 3.46 Diastolic Function MV Pk E: 0.65 MV Pk A: 0.76 E/A: 0.80 E'Medial: 5.22 E/E' Med: 12.40 E' Laterial: 7.62 E/E' Lat: 8.50 Right Ventricle TAPSE (mm): 21.70 TVS' Leonides: 11.20 Tricuspid Valve TR Pk Leonides: 1.77 TR Pk Grad: 13.00 Great Vessels Aorta Sinus of Valsalva: 3.50 2.0-3.5 cm Ao Asc: 4.00 2.1-3.4 cm Pulmonary Valve PV Pk Leonides: 1.00 Peak PV Grad: 4.00 Updated in Other Vendor System with Status of Final Kishan Bradley MD electronically signed on 08/22/2023 11:58:44 AM with status of Final
[2023-08-22] MEDS: lisinopriL 5 MG TABLET PO (08:48)
[2023-08-22] MEDS: Aspirin 81 MG TAB.CHEW PO (08:48)
--- NOTE | 2023-08-22 08:50 | PC.NURSE ---
pt is alert and oriented, skin pwd, respirations even and unlabored, ls clear, all neuros intact, moving all extremities, hand grasp strong and equal, no visible drift, no facial drooping, speech at this time clear, pt does report that his lower extremities feel like pin and needles, that's intermitted, slight headache 2/10, and intermittent right facial tingling/numbness. vs stable at this time and ns on the monitor
--- NOTE | 2023-08-22 09:12 | PM.DS ---
DS: Providers Provider Date of Service: 08/22/23 Date of admission: 08/21/23 18:00 Primary care physician: None Physician Consults: 08/21/23 17:59 Consult to Neurology Routine Consulting Provider: [facility] Reason for consultation: CVA DS: Diagnosis Discharge Diagnosis (1) Acute CVA (cerebrovascular accident): Status: Acute DS: Summary Hospital Course Hospital Course: 72-year-old man presenting to the ER with slurred speech. According to the patient's he woke up with a headache several hours later he had slurred speech and seemed confused to her. She reported yesterday he was in his usual state of health. Patient denied chest pain, shortness breast, nausea, vomiting, diarrhea, sick contacts, recent illness, recent travel. He does have a history of coronary artery disease and peripheral vascular disease. He stopped taking his blood pressure medication approximately 1 year ago had been intermittently taking aspirin. In the ER, head CT showed suspected grade 2 white matter differentiation loss within the right parietal lobe suspicious for an acute infarct inclusive of the right parietal postcentral gyrus and artifact versus small infarct within the left adonis, no mass effect or hemorrhagic conversion. His blood pressure was noted to be elevated with highest reading of 196/87 all other labs within acceptable limits. Patient is alert oriented with no neuro deficits at this time. He will be admitted for further management and treatment of acute CVA. 72-year-old man treated for acute CVA. Because patient woke up with symptoms he did not qualify for TNK. His symptoms of headache and slurred speech completely resolved on admission. MRI showed acute infarct within the left paramedian adnois, mild to moderate global cerebral volume loss and mild chronic major microangiopathy, prominent perivascular spaces with adjacent gliosis versus chronic lacunar infarcts in the right peritrigonal white matter, tiny chronic lacunar infarct in the right cerebellum. Head and neck CTA showed extensive fibrofatty atherosclerotic plaque involving the right internal carotid artery bulb presenting in a 60% stenosis of the proximal right internal carotid artery. Patient to follow up with vascular surgery outpatient. PT rec o/p PT, no OT necessary. Started on asa, statin and lisinopril. Plan is to discharge home with spouse. CAD aspirin and statin Obesity. BMI. 30.7. Discussed importance of weight management as this may be contributing to worsening of other comorbidities Time Attestation Discharge Coordination Time (in mins): 46 Quality: Safe Use of Opioids Does Pt have an Active Cancer Diagnosis on the Problem List?: No Quality: Stroke Does the patient have a stroke diagnosis?: No Physical Exam Vital Signs: Vital Signs: Last Vital Signs Temp 98.3 F 08/22/23 08:04 Pulse 70 08/22/23 08:46 Resp 18 08/22/23 08:46 BP 162/75 H 08/22/23 08:46 Pulse Ox 94 08/22/23 08:46 O2 Del Method Room Air 08/22/23 08:46 BMI result Body Mass Index 30.7 Appearing in no acute distress head is normocephalic atraumatic eyes pupils are PERRLA sclera is anicteric mouth throat mucous membranes are intact and moist neck is supple no lymphadenopathy, no JVD noted lung sounds are clear to auscultation heart regular rate rhythm, clear S1, S2 positive bowel sounds, abdomen is soft, nontender neuro patient is alert x3, no focal deficits DS: Data Data Completed and Pending Labs on day of discharge: Laboratory Results - last 24 hr 08/21/23 08/21/23 08/21/23 15:42 15:43 15:46 WBC 8.4 RBC 4.70 Hgb 14.6 Hct 42.6 MCV 90.6 MCH 31.1 MCHC 34.3 RDW 12.6 Plt Count 224 MPV 9.8 Immature Gran % (Auto) 0.2 Neut % (Auto) 56.5 Lymph % (Auto) 32.0 [place] % (Auto) 9.6 Eos % (Auto) 1.0 Baso % (Auto) 0.7 Lymph # (Auto) 2.7 [place] # (Auto) 0.8 Eos # (Auto) 0.1 Baso # (Auto) 0.1 Abs Immat Gran (auto) 0.02 Absolute Neuts (auto) 4.8 Absolute Nucleated RBC 0.000 Nucleated RBC % (auto) 0.0 Hold Purple Top Whole Blood PT 14.0 H Whole Blood INR 1.0 Sodium 139 Potassium 4.0 Chloride 106 Carbon Dioxide 23 Anion Gap 14 BUN 22 H Creatinine 1.14 Estim Creat Clear Calc 65.3 Estimated GFR > 60 POC Glucose 121 H Random Glucose 126 H Estimat Average Glucose Hemoglobin A1c % Calcium 9.4 Magnesium 2.2 Total Bilirubin 0.6 AST 35 ALT 56 H Alkaline Phosphatase 46 Total Creatine Kinase Troponin I High Sens < 2.7 Total Protein 7.5 Albumin 4.5 Triglycerides Cholesterol LDL Cholesterol, Calc HDL Cholesterol Lipase 30 Influenza Type A (PCR) Influenza Type B (PCR) RSV RNA Qual (PCR) SARS-CoV-2 RNA (RT-PCR) 08/21/23 08/22/23 08/22/23 16:22 04:32 04:32 WBC RBC Hgb Hct MCV MCH MCHC RDW Plt Count MPV Immature Gran % (Auto) Neut % (Auto) Lymph % (Auto) [place] % (Auto) Eos % (Auto) Baso % (Auto) Lymph # (Auto) [place] # (Auto) Eos # (Auto) Baso # (Auto) Abs Immat Gran (auto) Absolute Neuts (auto) Absolute Nucleated RBC Nucleated RBC % (auto) Hold Purple Top SEE NOTE Whole Blood PT Whole Blood INR Sodium 142 Potassium 4.5 Chloride 107 Carbon Dioxide 27 Anion Gap 13 BUN 18 H Creatinine 0.90 Estim Creat Clear Calc 82.7 Estimated GFR > 60 POC Glucose Random Glucose 100 Estimat Average Glucose 123 Hemoglobin A1c % 5.9 Calcium 9.3 Magnesium Total Bilirubin 1.0 AST 29 ALT 48 H Alkaline Phosphatase 41 Total Creatine Kinase 124 Troponin I High Sens Total Protein 6.9 Albumin 4.2 Triglycerides 139 Cancelled Cholesterol 209 H LDL Cholesterol, Calc HDL Cholesterol Lipase Influenza Type A (PCR) NEGATIVE Influenza Type B (PCR) NEGATIVE RSV RNA Qual (PCR) NEGATIVE SARS-CoV-2 RNA (RT-PCR) NEGATIVE 08/22/23 08/22/23 08/22/23 04:32 04:32 04:32 WBC RBC Hgb Hct MCV MCH MCHC RDW Plt Count MPV Immature Gran % (Auto) Neut % (Auto) Lymph % (Auto) [place] % (Auto) Eos % (Auto) Baso % (Auto) Lymph # (Auto) [place] # (Auto) Eos # (Auto) Baso # (Auto) Abs Immat Gran (auto) Absolute Neuts (auto) Absolute Nucleated RBC Nucleated RBC % (auto) Hold Purple Top Whole Blood PT Whole Blood INR Sodium Potassium Chloride Carbon Dioxide Anion Gap BUN Creatinine Estim Creat Clear Calc Estimated GFR POC Glucose Random Glucose Estimat Average Glucose Hemoglobin A1c % Calcium Magnesium Total Bilirubin AST ALT Alkaline Phosphatase Total Creatine Kinase Troponin I High Sens Total Protein Albumin Triglycerides Cholesterol Cancelled LDL Cholesterol, Calc 140 H Cancelled HDL Cholesterol 42 Cancelled Lipase Influenza Type A (PCR) Influenza Type B (PCR) RSV RNA Qual (PCR) SARS-CoV-2 RNA (RT-PCR) Discharge Plan Discharge Anticipated Discharge Date/Time: 08/22/23 09:10 Patient Disposition: Home, Self-Care Discharge Diagnosis: Acute CVA Discharge Medications: New aspirin 81 mg Tablet,Chewable 81 mg PO DAILY Qty: 30 0RF lisinopril 5 mg Tablet 5 mg PO DAILY Qty: 30 0RF Protocol: Hold for SBP< HOLD for SBP < : 90 atorvastatin 40 mg Tablet 40 mg PO BEDTIME Qty: 30 0RF Continued multivitamin Tablet 1 tab PO DAILY cyanocobalamin (vitamin B-12) 1,000 mcg Tablet 1,000 mcg PO DAILY nitroglycerin 0.4 mg tablet, sublingual 0.4 mg sublingual Q5M PRN (Reason: chest pain) Qty: 30 5RF Rx Instructions: do not exceed 3 doses per episode Discharge Orders: Discharge Order (Routine); Ordered 08/22/23 Ordered By: Claudine Ackerman Diet: Advance to usual diet Activity on Discharge: As tolerated Stand Alone Forms: Patient Portal Discharge page Care Plan Goals: You have been started on Lisinopril 5 mg daily for blood pressure as well as aspirin and lipitor for protection from stroke Health Concerns: Acute CVA Plan of Treatment: Follow up with primary care provider Take all medications as prescribed Assessment: See discharge summary
--- NOTE | 2023-08-22 12:47 | MHC.CM.PN ---
pt lives with they had no services pt can not have a vna as physical therapy recommended ,he has no pcp pt has a ride home
--- NOTE | 2023-08-22 13:01 | PM.NEUROCN ---
History of Present Illness Data of Consult Service Date: 08/22/23 Primary Care Provider: None Physician HPI Reason for consult: Stroke This is a 72-year-old man who woke up with a headache and several hours later he developed slurred speech and seemed confused to his . So he was brought to the ER. No nausea, vomiting, diarrhea, sick contacts, recent illness, recent travel. He does have a history of coronary artery disease and peripheral vascular disease. He stopped taking his blood pressure medication approximately 1 year ago had been intermittently taking aspirin. In the ER, his blood pressure was noted to be elevated with highest reading of 196/87 all other labs within acceptable limits. Patient is alert oriented with no neuro deficits time. Since he woke up with symptoms, he did not qualify for TNK. His symptoms of headache and slurred speech completely resolved on admission. MRI showed acute infarct within the left paramedian adonis, and mild global cerebral volume loss and mild chronic major microangiopathy, prominent perivascular spaces with adjacent gliosis versus chronic lacunar infarcts in the right peritrigonal white matter, tiny chronic lacunar infarct in the right cerebellum. Head and neck CTA showed extensive fibrofatty atherosclerotic plaque involving the right internal carotid artery bulb presenting in a 60% stenosis of the proximal right internal carotid artery. Review of Systems Review of Systems: Denies any recent fever chills or decrease in appetite respiratory denies any shortness of breath or cough cardiovascular denied chest pain gastrointestinal denies any dysphagia abdominal pain nausea vomiting or diarrhea genitourinary denies any dysuria frequency or hematuria musculoskeletal denies any joint pain or swelling neuropsych denies any weakness or seizures all other systems reviewed are negative Yes all other systems are reviewed and are negative Neurologic: Reports Abnormal speech present and Denies Sensory deficit (Neuro) [facility] Past Medical History Medical History CAD (coronary artery disease) CHF (congestive heart failure) On beta mere at home HTN (hypertension) Diabetes mellitus DVT (deep venous thrombosis) GERD (gastroesophageal reflux disease) LEMONS (nonalcoholic steatohepatitis) FLORES (obstructive sleep apnea) PVC (premature ventricular contraction) Statin intolerance Atherosclerotic cardiovascular disease History of colonic polyps Family History Family History Father No problems noted. Mother Stroke Brother Liver disease Surgical History Surgical History Hx of tonsillectomy History of hand surgery Hx of cardiac cath Hx of colonoscopy Social History Social History Household Members: Spouse Alcohol intake: current Alcohol intake frequency: does not drink Patient Tobacco Use Status: Never used Tobacco service: No Meds Allergies Allergy/AdvReac Type Severity Reaction Status Date / Time [id number] Reductase AdvReac Mild Abdominal Verified 08/21/23 15:33 Inhibitor Pain Active Medications: Current Medications Acetaminophen (Acetaminophen 325 Mg Tablet) 650 mg PO Q6H PRN PRN Reason: Pain, Mild (Pain Scale 1-3) Aspirin (Aspirin 81 Mg Tab.Chew) 81 mg PO DAILY [facility] Last Admin: 08/22/23 08:48 Dose: 81 mg Labetalol HCl (Labetalol Hcl 100 Mg/20 Ml Vial) 20 mg IVPUSH Q10M PRN PRN Reason: SBP >190 Lisinopril (Lisinopril 5 Mg Tablet) 5 mg PO DAILY [facility]; Protocol Last Admin: 08/22/23 08:48 Dose: 5 mg Ondansetron HCl (Ondansetron Hcl 4 Mg/2 Ml Vial) 4 mg IVPUSH Q8H PRN PRN Reason: Nausea and Vomiting Sodium Chloride (0.9 % Sodium Chloride Flush 3 Ml Syringe) 3 ml IVFLUSH QSHIFT [facility] Last Admin: 08/22/23 08:48 Dose: 3 ml Home Medications Medication Instructions Recorded Confirmed Last Taken Type cyanocobalamin (vitamin B-12) 1,000 mcg PO DAILY 08/21/23 08/21/23 Unknown History 1,000 mcg tablet multivitamin 1 tab PO DAILY 08/21/23 08/21/23 Unknown History Physical Exam Vital Signs: Vital Signs: Last Vital Signs Temp 97.7 F 08/22/23 12:33 Pulse 74 08/22/23 12:33 Resp 12 08/22/23 12:33 BP 154/69 H 08/22/23 12:33 Pulse Ox 96 08/22/23 12:33 O2 Del Method Room Air 08/22/23 12:33 BMI result Body Mass Index 30.7 Const: General: cooperative Orientation/consciousness: patient oriented x3 HEENT: Head: Yes atraumatic Eyes: General: appearance normal, both eyes and all related structures Pupils: Equal, round and reactive pupils present EOM: EOMs intact bilaterally Neck: Neck: Yes normal visual inspection, Yes full ROM, Yes supple and No tender Chest: Chest palpation & inspection: normal inspection of the chest and normal palpation of entire chest wall Resp: Effort & Inspection: normal respiratory effort, able to speak in complete sentences, no cough and no respiratory distress Auscultation: clear to auscultation bilaterally Cardio: Rate: regular rate Rhythm: regular rhythm Peripheral pulses: Peripheral pulses 2+ throughout GI: Inspection: Yes normal to inspection, No Abdominal wall edema and No distended Palpation (GI): Soft to palpation, not firm, nontender, no guarding and not rigid Auscultation: normal bowel sounds Neuro: Other: Mild dysarthria otherwise non focal exam General: patient oriented x3, moves all extremities, no focal motor deficits and CN's II-XI intact bilaterally Cranial nerves: Yes Equal, round and reactive pupils present Speech: Abnormal speech present Motor exam (neuro): 5/5 motor strength present throughout Sensory Exam: No Sensory deficit (Neuro) Results Labs 08/21/23 15:46 08/22/23 04:32 Labs: Short CBC 08/21/23 Range/Units 15:46 WBC 8.4 (4.8-10.8) X10*3/uL Hgb 14.6 (14.0-18.0) g/dl Hct 42.6 (42.0-52.0) % Plt Count 224 (160-400) X10*3/uL BMP 08/21/23 08/22/23 15:46 04:32 Sodium 139 142 Potassium 4.0 4.5 Chloride 106 107 Carbon Dioxide 23 27 BUN 22 H 18 H Creatinine 1.14 0.90 Calcium 9.4 9.3 Cardiac Enzymes 08/21/23 Range/Units 16:22 Total Creatine Kinase 124 (38-174) U/L Liver Function 08/21/23 08/22/23 Range/Units 15:46 04:32 Total Bilirubin 0.6 1.0 (0.0-1.0) mg/dL AST 35 29 (5-37) U/L ALT 56 H 48 H (0-40) U/L Alkaline Phosphatase 46 41 (39-117) U/L Albumin 4.5 4.2 (3.5-5.0) g/dL Assessment and Plan (1) Acute CVA (cerebrovascular accident): Status: Acute To pontine paramedian ischemic infarct due to occlusion of the paramedian branches of the basilar arteries. Diffuse vascular disease without critical stenosis in the intracranial and extracranial circulation. Recommendation control of blood pressure. Statins as tolerated. Aspirin 81 mg a day and Plavix 75 mg a day for 6 weeks. I personally reviewed the MRI films and labs Plan 72 year old man admitted with cute CVA Acute CVA Head CT and CTA showing indeterminate age infarcts within the right parietal precentral gyrus and left adonis, no acute arterial occlusion, extensive atherosclerotic plaque involving the right internal carotid artery bulb resulting in 60% stenosis of the proximal right internal carotid artery Neuro consultation MRI echo PT/OT monitor on telemetry neuro checks asa Hypertensive urgency patient reports that he stopped taking BP medication 1 year ago for now will give labetolol IV prn for SBP >190 to avoid hypotension follow BP closely to determine if patient needs to be started again CAD asa, not on statin due to MSK pain Obesity. BMI. 30.7 Discussed importance of weight management as this may be contributing to worsening of other comorbidities DVT prophylaxis with pneumatic compression boots Full code Patient will need 48 hours for workup of acute CVA and specialty consultation. Due to hypertensive urgency patient could decompensate quickly and this can not be done at a lesser acute setting. Procedures Date of Service Date of Service: 08/22/23
--- NOTE | 2023-08-22 15:07 | MHC.CM.PN ---
pt dcd home no servies
[2023-08-22 16:15] LABS: Thyroid Stimulating Hormone 0.82 uIU/mL (0.32-4.0)
== END 2023-08-22 15:26 | disposition home or self-care (01) | DRG 66 ==
LOC: HO.ED 16:49 → HO.EDOVER 18:07
PROVIDERS: Physician Assistant Medical; Admitting Provider Nurse Practitioner Acute Care; Emergency Provider Emergency Medicine; Visit Provider Nurse Practitioner Acute Care
DX: I63.9 Cerebral infarction, unspecified (principal); I25.10 Atherosclerotic heart disease of native coronary artery without angina pectoris; R29.702 NIHSS score 2; I16.0 Hypertensive urgency; E66.9 Obesity, unspecified; R47.81 Slurred speech; Z68.30 Body mass index [BMI] 30.0-30.9, adult; Z79.899 Other long term (current) drug therapy
CPT/HCPCS: 0241U; 36415; 70450; 70496; 70498; 70551; 71045; 80053; 80061; 82550; 82947; 83036; 83690; 83735; 84443; 84484; 85025; 85610; 93306; 97162; 97166; 99222; 99285; Q9957; Q9967

== ENCOUNTER 2023-08-21 18:00 | Outpatient (BNV) | payer MEDICARE, SELFPAY | END 2023-08-22 07:00 | PROVIDERS: Admitting Provider Nurse Practitioner Acute Care; Emergency Provider Emergency Medicine; Visit Provider Internal Medicine | DX: I77.810 Thoracic aortic ectasia (principal) | CPT/HCPCS: 93306 ==

== ENCOUNTER → 2023-08-21 18:00 | Outpatient (BNV) | payer MEDICARE, SELFPAY | PROVIDERS: Admitting Provider Nurse Practitioner Acute Care; Emergency Provider Emergency Medicine; Visit Provider Psychiatry & Neurology Neurology | DX: I63.22 Cerebral infarction due to unspecified occlusion or stenosis of basilar artery (principal) | CPT/HCPCS: 99222 ==

== ENCOUNTER → 2023-08-21 18:00 | Outpatient (BNV) | payer MEDICARE, SELFPAY | PROVIDERS: Admitting Provider Nurse Practitioner Acute Care; Emergency Provider Emergency Medicine; Visit Provider Nurse Practitioner Acute Care | DX: I63.231 Cerebral infarction due to unspecified occlusion or stenosis of right carotid arteries (principal) | CPT/HCPCS: 99223; 99239 ==

== ENCOUNTER 2023-08-31 08:40 | Outpatient (AMB) | payer MEDICARE, SELFPAY ==
--- NOTE | 2023-08-31 08:47 | A.OFFVIS_ITS ---
Intake Vital Signs 08/31/23 08:52 08/31/23 09:01 Height 5 ft 9 in Weight 190 lb BMI 28.1 BP 134/76 135/77 Blood Pressure Location Rt brachial Lt brachial Position Sitting Sitting Intake Visit Reasons: ED Ref CVA s/p CTA Head/Neck 08/21/23 Intake Note: ED referral for CTA head/neck 08/21/23 s/p stroke. Pt has slurred speech, woke up from sleep with the slurred speech, has history many years ago of TIA. (found on stress test per pt) Pt states he started atorvastatin but does make him very dizzy Accompanied by: Spouse Allergies [id number] Reductase Inhibitor Adverse Reaction (Mild, Verified 08/31/23 08:56) Abdominal Pain HPI ED Ref CVA s/p CTA Head/Neck 08/21/23 HPI Details Very pleasant 72-year-old gentleman presents for follow-up from the emergency room. He presented to the ER with slurred speech. According to the he woke up with a headache and then developed slurred speech. He was subsequently brought into the hospital and treated for an acute CVA. His speech has improved since that time. At that time of workup there was concern right carotid stenosis with stroke. He now presents to us for vascular evaluation. Of note upon discussion with him his speech has improved. He can easily climb 2 flights of stairs. In he can walk several blocks with no difficulty. [facility] Medical History CAD (coronary artery disease) CHF (congestive heart failure) On beta mere at home HTN (hypertension) Diabetes mellitus DVT (deep venous thrombosis) GERD (gastroesophageal reflux disease) LEMONS (nonalcoholic steatohepatitis) FLORES (obstructive sleep apnea) PVC (premature ventricular contraction) Statin intolerance Atherosclerotic cardiovascular disease History of colonic polyps Surgical History Hx of tonsillectomy History of hand surgery Hx of cardiac cath Hx of colonoscopy Family History Father No problems noted. Mother Stroke Brother Liver disease Social History Household Members: Spouse Alcohol intake: current Alcohol intake frequency: does not drink Patient Tobacco Use Status: Never used Tobacco service: No Review of Systems Const All systems reviewed & are unremarkable except as noted in HPI and below Reports no additional complaints ENT Reports Normal hearing present Card Denies chest pain, Denies chest pain at rest, Denies chest pain with activity and Denies pedal edema Resp Denies cough GI Denies abdominal pain Musc Denies abnormal gait, Denies muscle cramps and Denies radiating pain into limb Skin/Breast Denies skin ulcer and Denies wounds Neuro Reports Normal hearing present and Denies abnormal gait Psych Reports no additional complaints Physical Exam Vital Signs: Last Vital Signs BP 135/77 08/31/23 09:01 BMI result Body Mass Index 28.1 Const General: cooperative, healthy appearing and comfortable Orientation/consciousness: oriented to person, oriented to place and oriented to time HEENT Head: Yes normal to inspection Neck Neck: Yes normal visual inspection Carotids: no bruits Chest Chest palpation & inspection: normal inspection of the chest Resp Effort & Inspection: normal respiratory effort and able to speak in complete sentences Auscultation: clear to auscultation bilaterally, no crackles, no rales, no rhonchi and no wheezes Cardio Rate: regular rate Rhythm: regular rhythm Heart sounds: S1 normal heart sound present and S2 normal heart sound present Bruits: no carotid bruits Peripheral pulses: Peripheral pulses 2+ throughout GI Inspection: Yes normal to inspection Skin Wounds: no wounds Hair: normal Neuro General: oriented to person, oriented to place and oriented to time Cranial nerves: Yes CN's II-XII intact bilaterally and Yes Normal hearing pr esent Cognition (Neuro): normal cognition Motor exam (neuro): 5/5 motor strength present throughout Extrem Other: venous exam: No significant superficial varicosities or spider telangiectasias, minimal edema General: No clubbing, No cyanosis and No edema Psych Appearance: grossly normal Mental Status: mental status grossly normal Speech and movement: Normal speech and movement present Results Reviewed Results Reviewed: CT angiogram dated 08/21/2023 demonstrates right-sided carotid stenosis of 60%. In addition infarcts within the right parietal in precentral gyrus. 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 He will require a right carotid endarterectomy risks benefits complications including but not limited to bleeding infection stroke and were discussed in detail with the patient. He understood and would like to move forward. He will continue with his aspirin and statin. In addition he will require cardiac risk stratification prior to surgery. Thank you for allowing us to assist in his care. Coding Level of Care Code New Pt Level 4 (76183) Diagnoses Stroke due to stenosis of right carotid artery I63.231
[2023-08-31 08:52] VITALS: BP 134/76; BMI 28.1
[2023-08-31 09:01] VITALS: BP 135/77
== END 2023-08-31 09:40 | disposition home or self-care (01) ==
PROVIDERS: Visit Provider Surgery Vascular Surgery
DX: I63.231 Cerebral infarction due to unspecified occlusion or stenosis of right carotid arteries (principal)
CPT/HCPCS: 99204

== ENCOUNTER → 2023-08-31 08:40 | Outpatient (BNVA) | payer MEDICARE, SELFPAY | PROVIDERS: Visit Provider Surgery Vascular Surgery | DX: I63.231 Cerebral infarction due to unspecified occlusion or stenosis of right carotid arteries (principal) | CPT/HCPCS: 99202 ==

== ENCOUNTER 2023-09-05 10:02 | Outpatient (AMB) | payer MEDICARE, SELFPAY ==
--- NOTE | 2023-09-05 10:11 | MHC.OFFVIS ---
Intake Vital Signs 09/05/23 10:12 Height 5 ft 9 in Weight 196 lb 3.382 oz BMI 29.0 BP 144/74 H Blood Pressure Location Lt brachial Position Sitting Pulse 75 Intake Visit Reasons: Preop /Dr Juarez/endarterectomy Intake Note: Pre op Manager Acute Required: No Accompanied by: Spouse Allergies Raqmqnk-UBR-KcM Reductase Inhibitor Adverse Reaction (Mild, Verified 09/05/23 10:15) Abdominal Pain Medication List - Last Reconciled 09/05/23 by Kishan Bradley MD aspirin 81 mg PO DAILY atorvastatin 40 mg PO BEDTIME cyanocobalamin (vitamin B-12) 1,000 mcg PO DAILY lisinopril 5 mg See Protocol PO DAILY multivitamin 1 tab PO DAILY nitroglycerin 0.4 mg sublingual Q5M PRN HPI HPI Comments History of Present Illness Details Toño returns for follow-up. He is here for preoperative risk stratification for carotid endarterectomy. He recently had a stroke and has been diagnosed with carotid stenosis on the right side. That needs surgery per vascular notes. To recall, he has a history of coronary disease and prior LAD PCI. He does not like taking medications; in the past, has been on various meds including nitrates, beta-blockers, lisinopril, amlodipine at different times but was complaining of some side effect or the other and hence was never taking them. Had also tried statins but could not take them because of musculoskeletal pain, although not entirely clear if it is medication related. Then tried Repatha and could not afford. Hence was on nothing for cholesterol. After the most recent discharge from the stroke admission, he seems that he is on at least some of these meds. No more compliant at least for the last 2 weeks. is also here for the appointment. They are actually quite concerned about going for surgery and very reluctant. No overt cardiac symptoms. [facility] Medical History CAD (coronary artery disease) CHF (congestive heart failure) On beta mere at home HTN (hypertension) Diabetes mellitus DVT (deep venous thrombosis) GERD (gastroesophageal reflux disease) LEMONS (nonalcoholic steatohepatitis) FLORES (obstructive sleep apnea) PVC (premature ventricular contraction) Statin intolerance Atherosclerotic cardiovascular disease History of colonic polyps Surgical History Hx of tonsillectomy History of hand surgery Hx of cardiac cath Hx of colonoscopy Family History Father No problems noted. Mother Stroke Brother Liver disease Social History Household Members: Spouse Alcohol intake: current Alcohol intake frequency: does not drink Patient Tobacco Use Status: Never used Tobacco service: No Review of Systems Const Denies weakness ENT Denies dizziness Card Denies chest pain with activity, Denies syncope, Denies rapid heart rate, Denies pedal edema, Denies edema, Denies leg edema, Denies lightheadedness, Denies palpitations, Denies dyspnea, Denies dyspnea on exertion and Denies orthopnea Resp Denies cough, Denies dyspnea and Denies dyspnea on exertion GI Denies hematochezia and Denies change in stool character Musc Denies abnormal gait, Denies muscle cramps, Denies muscle weakness, Denies numbness, Denies radiating pain into limb and Denies tingling Neuro Denies abnormal gait, Denies dizziness, Denies syncope, Denies numbness, Denies tingling and Denies weakness Endo Denies palpitations Physical Exam Vital Signs: Last Vital Signs Pulse 75 09/05/23 10:12 BP 144/74 H 09/05/23 10:12 BMI result Body Mass Index 29.0 Const General: comfortable and no acute distress Orientation/consciousness: patient oriented x3 HEENT Other: Unremarkable Head: Yes normal to inspection Neck Neck: Yes normal visual inspection Chest Chest palpation & inspection: normal inspection of the chest Resp Auscultation: clear to auscultation bilaterally Cardio Palpation: normal PMI Heart sounds: S1 normal heart sound present, S2 normal heart sound present, no gallops, no murmurs and no rubs GI Palpation (GI): Soft to palpation Back/Spine/Pelvis Other: unremarkable Skin General skin exam: no rashes or lesions noted Neuro General: patient oriented x3 Extrem General: Yes normal to inspection Psych Mental Status: mental status grossly normal Office Procedures EKG Details: EKG with sinus rhythm at 75/Min; voltage criteria for LVH; [place] [id number]-[id number], Complete Assessment & Plan Assessment & Plan (1) Atherosclerotic cardiovascular disease: Code(s): I25.10 - Atherosclerotic heart disease of [place] coronary artery without angina pectoris (2) Stroke due to stenosis of right carotid artery: Code(s): I63.231 - Cerebral infarction due to unspecified occlusion or stenosis of right carotid arteries (3) Preoperative cardiovascular examination: Code(s): Z01.810 - Encounter for preprocedural cardiovascular examination Plan Cardiac catheterization from 2019 shows patent stent in the LAD; 90% ostial diagonal disease-small vessel; 80% ostial right PDA disease, medically managed. In the recent echocardiogram from last month, LVEF is 49%. Basal inferior/mid inferior/apical septum/mid inferolateral hypokinesis. Ascending aortic size 4 cm. Wall motion abnormalities could be related to PDA disease. Wall motion abnormalities have been seen in the past. With regard to his vascular disease, medical treatment is suboptimal mainly because of noncompliance in the past. For now, he is on aspirin, statins which are very reasonable. He is also on a small dose of lisinopril. Those doses will need to be up titrated as needed. If cholesterol is still high, then may try Repatha but there was an insurance issue in the past. Will get stress perfusion imaging study for further evaluation. With regard to the carotid endarterectomy, patient and his are very reluctant to proceed. They feel they would rather not have the surgery unless absolutely essential. After long discussion, they preferred a 2nd opinion for the same. Hence, we will refer to [facility]. Patient also needs a PCP to consolidate his care. We will try to arrange. Orders: Orders LDL Cholesterol Direct Today E78.2 - Mixed hyperlipidemia, I63.231 - Cerebral infarction due to unspecified occlusion or stenosis of right carotid arteries CA stress test Today I25.10 - Atherosclerotic heart disease of [place] coronary artery without angina pectoris, R07.2 - Precordial pain NM cardiolite stress test Today I25.10 - Atherosclerotic heart disease of [place] coronary artery without angina pectoris, R07.2 - Precordial pain Lipid Panel Today E78.5 - Hyperlipidemia, unspecified, I63.231 - Cerebral infarction due to unspecified occlusion or stenosis of right carotid arteries Medications: Refilled lisinopril 5 mg See Protocol PO DAILY 90 tabs 3RF I25.10 - Atherosclerotic heart disease of [place] coronary artery without angina pectoris aspirin 81 mg PO DAILY 90 tabs 3RF I25.10 - Atherosclerotic heart disease of [place] coronary artery without angina pectoris atorvastatin 40 mg PO BEDTIME 90 tabs 3RF I25.10 - Atherosclerotic heart disease of [place] coronary artery without angina pectoris Coding Level of Care Code Est Pt Level 4 (22630) Diagnoses Atherosclerotic cardiovascular disease I25.10 Stroke due to stenosis of right carotid artery I63.231 Preoperative cardiovascular examination Z01.810 CPT Codes EKG - CPT: 20992-[id number], Complete ([id number])
[2023-09-05 10:12] VITALS: BP 144/74; PULSE 75; BMI 29.0
== END 2023-09-05 10:47 | disposition home or self-care (01) ==
PROVIDERS: Visit Provider Internal Medicine
DX: I25.10 Atherosclerotic heart disease of native coronary artery without angina pectoris (principal); I63.231 Cerebral infarction due to unspecified occlusion or stenosis of right carotid arteries; Z01.810 Encounter for preprocedural cardiovascular examination
CPT/HCPCS: 93010; 99214

== ENCOUNTER → 2023-09-05 10:02 | Outpatient (BNVA) | payer MEDICARE, SELFPAY | PROVIDERS: Visit Provider Internal Medicine | DX: Z01.810 Encounter for preprocedural cardiovascular examination (principal); I25.10 Atherosclerotic heart disease of native coronary artery without angina pectoris; I63.231 Cerebral infarction due to unspecified occlusion or stenosis of right carotid arteries | CPT/HCPCS: 93005; 99212 ==

== ENCOUNTER 2023-09-06 09:55 | Outpatient (REF) | payer MEDICARE, SELFPAY ==
--- NOTE | ~2023-09-06 | US_ITS ---
EXAMINATION: US ABDOMEN LIMITED WITH LIVER ELASTOGRAPHY CLINICAL INFORMATION: Abnormal blood chemistry. COMPARISON: Abdominal ultrasound dated 04/09/2019. TECHNIQUE: Real-time imaging of the abdominal viscera. Noninvasive ultrasound liver fibrosis assessment is performed using Rosette ElastPQ point quantification shear wave elastography (2D-SWE) with a C5-2 MHz transducer. Multiple elastography samples are obtained. FINDINGS: PANCREAS: Normal. The visualized pancreatic head and body are normal in appearance. The remainder of the pancreas is obscured from visualization by the overlying bowel gas. LIVER: Normal. The liver demonstrates normal size, contour and echogenicity. No focal lesion or intrahepatic biliary duct dilatation. The right lobe measures 12.9 cm in length. The left lobe measures 7.3 cm in length. Portal flow is towards the liver (hepatopetal). Shear wave liver elastography median stiffness is 1.30 m/s (reference: normal median stiffness is 1.3 m/s or less). IQR/median stiffness to assess sampling precision is 0.12 (reference: good quality data set is IQR/median stiffness of 0.15 or less). GALLBLADDER: Normal. The gallbladder is physiologically distended without evidence of stones, sludge, polyps, wall thickening or pericholecystic fluid. COMMON BILE DUCT: Normal in caliber measuring 0.3 cm in diameter. RIGHT KIDNEY: Normal. No hydronephrosis. No renal calculi or focal parenchymal lesions. The kidney measures 11.9 cm in maximum dimension. FREE FLUID: None. US/US abdomen dukes w elastography IMPRESSION: 1. There is generalized increase in hepatic echotexture, consistent with fatty infiltration or hepatocellular disease. Please correlate clinically. No focal hepatic mass or intrahepatic biliary dilatation is seen. 2. Liver elastography: Measurements are consistent with a high probability of normal liver stiffness. REFERENCE: Society of Radiologists in Ultrasound Liver Stiffness Thresholds (2020): LIVER STIFFNESS THRESHOLDS: *Liver Stiffness equal or less than 1.3 m/s: High probability of being normal. *Liver Stiffness less than 1.7 m/s: In the absence of other known clinical signs, rules out compensated advanced chronic liver disease. *Liver Stiffness 1.7-2.1 m/s: Suggestive of compensated advanced chronic liver disease but need further test for confirmation. *Liver Stiffness over 2.1 m/s: Rules in compensated advanced chronic liver disease. *Liver Stiffness over 2.4 m/s: Suggestive of clinically significant portal hypertension. QUALITY OF DATA SET: *IQR/Median value equal or less than 0.15 implies a quality data set. *IQR/Median value over 0.15 implies a poor quality data set. SIGNIFICANT CHANGE FROM PRIOR EXAM: Significant change if liver stiffness measurement is 10% or greater from prior exam. OTHER CONSIDERATIONS: The stage of liver fibrosis may be overestimated in the setting of acute hepatitis, liver inflammation, elevated liver function tests, hepatic vascular congestion, obstructive cholestasis, non-fasting state, and infiltrative diseases such as amyloidosis and lymphoma. In some patients with NAFLD, the liver stiffness thresholds for compensated advanced chronic liver disease may be lower. In causes other than viral hepatitis and NAFLD, liver stiffness thresholds are not well established.
== END 2023-09-06 09:56 | disposition home or self-care (01) ==
LOC: HO.US 09:55
PROVIDERS: Visit Provider Internal Medicine Gastroenterology
DX: R79.89 Other specified abnormal findings of blood chemistry (principal)
CPT/HCPCS: 76705; 76981

== ENCOUNTER → 2023-10-04 07:36 | Outpatient (REF) | payer MEDICARE, SELFPAY ==
--- NOTE | ~2023-10-04 | NM_ITS ---
Exercise Myocardial perfusion study Indication: Precordial chest pain to evaluate for myocardial ischemia Technique: The patient was brought in for an exercise perfusion study on 10/04/2023. Patient performed exercise as per Dmitry protocol and was injected 30 mCi of sestamibi was given intravenously one target HR was achieved. Images were obtained using the SPECT gamma camera interlaced with the gating device. Images were obtained in supine position. Resting perfusion study was performed on 10/05/2023. Patient was administered 30 mCi of sestamibi intravenously at rest. Images were then obtained in supine position. Images obtained with and without CT attenuation. Total DLP 92 mGy-cm. Images were processed with the software and compared side to side in short axis, horizontal long axis and vertical long axis views. Findings: The stress perfusion study showed non attenuated images show mildly reduced uptake in the distal anterior and basal inferior wall of the LV myocardium. Attenuation corrected images show mildly reduced uptake in the distal anterior and apical wall of the LV myocardium.. The gated study shows normal LV systolic function with calculated LVEF of 65%. LV cavity is normal in in size. The gated study shows normal systolic wall thickening and contraction of all segments. There is no transient ischemic dilation. Resting study shows no change in perfusion compared to stress perfusion study. Gating at rest reveals normal systolic wall motion with ejection fraction at 62%. The findings are consistent with no reversible defect suggestive of ischemia. Fixed defect most likely related to attenuation artifact given normal wall motion. NM/NM cardiolite stress test Impression: 1. Likely normal myocardial perfusion 2. Gated LVEF is 65% 3. Transient ischemic dilatation not present Stress EKG is suggestive of ischemia
--- NOTE | 2023-10-04 07:39 | CA_ITS ---
Acquisition Time: 2023-10-04 07:52:51 Total Exercise Time: 00:07:27 Test Indications: CAD, PREOP Medications: SEE H Protocol: THELMA Max HR: 129 BPM 86% of Pred: 149 BPM Max BP: 184/070 mmHG Max Work Load: 8.6 METS Exercise stress test exercise 7 min 27 sec of Thelma protocol achieving 86% MPHR, with mild to moderate SOB, no chest discomfort, 7/10 bottom jaw pressure, without arrhythmias, with exaggerated blood pressure response, with downsloping in 12 lead placement leads 1, 2, aVL, V2-V6 suggestive of ischemia. Breahthing and jaw pain resolved with rest. Nuclear images pending. Test reviewed with Dr. Bradley. Referred By: Kishan Bradley Overread By: Juanita Jane
== END ==
LOC: HO.CARD 07:36
PROVIDERS: Visit Provider Internal Medicine
DX: R07.2 Precordial pain (principal); I25.10 Atherosclerotic heart disease of native coronary artery without angina pectoris
CPT/HCPCS: 78452; 93017; A9500

== ENCOUNTER → 2023-10-04 07:39 | Outpatient (BNV) | payer MEDICARE, SELFPAY | PROVIDERS: Visit Provider Nurse Practitioner | DX: R07.2 Precordial pain (principal); R06.02 Shortness of breath | CPT/HCPCS: 78452; 93016; 93018 ==

== ENCOUNTER 2023-11-30 09:23 | Outpatient (REF) | payer MEDICARE, SELFPAY ==
[2023-11-30 10:13] LABS: INTERNATIONAL NORM RATIO 0.9 (0.9-1.1); Prothrombin Time 11.3 SEC (11.1-13.3)
[2023-11-30 10:31] LABS: Alanine Aminotransferase 53 U/L (0-40); Albumin Level 4.4 g/dL (3.5-5.0); Alkaline Phosphatase 46 U/L (39-117); Aspartate Amino Transferase 33 U/L (5-37); Bilirubin Direct 0.3 mg/dL (0.0-0.5); Bilirubin Total 1.1 mg/dL (0.0-1.0); Cholesterol 178 mg/dL (<200); HDL Cholesterol 39 mg/dL (>40); LDL Cholesterol Calculated 113 mg/dL (<100); Total Protein 7.5 g/dL (6.5-8.0); Triglycerides 131 mg/dL (<150)
[2023-12-01 12:23] LABS: LDL Cholesterol Direct 128 mg/dL (<100)
== END 2023-11-30 09:24 | disposition home or self-care (01) ==
LOC: HO.LAB 09:23
PROVIDERS: Internal Medicine Gastroenterology; Visit Provider Internal Medicine
DX: R79.89 Other specified abnormal findings of blood chemistry (principal); E78.2 Mixed hyperlipidemia; I25.10 Atherosclerotic heart disease of native coronary artery without angina pectoris; Z86.73 Personal history of transient ischemic attack (TIA), and cerebral infarction without residual deficits
CPT/HCPCS: 36415; 80061; 80076; 83721; 85610; 99212

== ENCOUNTER 2023-11-30 09:23 | Outpatient (AMB) | payer MEDICARE, SELFPAY ==
[2023-11-30 09:29] VITALS: BP 122/60; PULSE 77; BMI 28.3
--- NOTE | 2023-11-30 09:29 | MHC.OFFVIS ---
Vital Signs 11/30/23 09:29 Height 5 ft 9 in Weight 191 lb 12.835 oz BMI 28.3 BP 122/60 Blood Pressure Location Lt brachial Position Sitting Pulse 77 Pulse Source Pulse Oximeter Intake Visit Reasons: f/up vascuylar 2nd/ stress/ pcp Allergies Oyxpybj-VCI-UcZ Reductase Inhibitor Adverse Reaction (Mild, Verified 09/05/23 10:15) Abdominal Pain Medication List - Last Reconciled 11/30/23 by Kishan Bradley MD aspirin 81 mg PO DAILY atorvastatin 40 mg PO BEDTIME cyanocobalamin (vitamin B-12) 1,000 mcg PO DAILY lisinopril 5 mg See Protocol PO DAILY multivitamin 1 tab PO DAILY nitroglycerin 0.4 mg sublingual Q5M PRN HPI Comments Details: Toño returns for follow-up. He recently had a stroke and has been diagnosed with carotid stenosis on the right side. That needs surgery per vascular notes. To recall, he has a history of coronary disease and prior LAD PCI. He does not like taking medications; in the past, has been on various meds including nitrates, beta-blockers, lisinopril, amlodipine at different times but was complaining of some side effect or the other and hence was never taking them. Had also tried statins but could not take them because of musculoskeletal pain, although not entirely clear if it is medication related. Then tried Repatha and could not afford. Hence was on nothing for cholesterol for a long time but more recently back on statins after the stroke. Overall, he feels okay and does not have any cardiac symptoms. He is seen vascular surgery in both [place] as well as [facility], but still he is not clear one way or another what he wants to do. He is very reluctant to undergo any surgery. [facility] Medical History CAD (coronary artery disease) CHF (congestive heart failure) On beta mere at home HTN (hypertension) Diabetes mellitus DVT (deep venous thrombosis) GERD (gastroesophageal reflux disease) LEMONS (nonalcoholic steatohepatitis) FLORES (obstructive sleep apnea) PVC (premature ventricular contraction) Statin intolerance Atherosclerotic cardiovascular disease History of colonic polyps Surgical History Hx of tonsillectomy History of hand surgery Hx of cardiac cath Hx of colonoscopy Family History Father No problems noted. Mother Stroke Brother Liver disease Social History Household Members: Spouse Alcohol intake: current Alcohol intake frequency: does not drink Patient Tobacco Use Status: Never used Tobacco service: No Review of Systems Const Denies weakness ENT Denies dizziness Card Denies chest pain, Denies chest pain with activity, Denies syncope, Denies rapid heart rate, Denies pedal edema, Denies edema, Denies leg edema, Denies lightheadedness, Denies palpitations, Denies dyspnea, Denies dyspnea on exertion and Denies orthopnea Resp Denies cough, Denies dyspnea and Denies dyspnea on exertion GI Denies hematochezia and Denies change in stool character Musc Denies abnormal gait, Denies muscle cramps, Denies muscle weakness, Denies numbness, Denies radiating pain into limb and Denies tingling Neuro Denies abnormal gait, Denies dizziness, Denies syncope, Denies numbness, Denies tingling and Denies weakness Endo Denies palpitations Physical Exam Vital Signs: Last Vital Signs Pulse 77 11/30/23 09:29 BP 122/60 11/30/23 09:29 BMI result Body Mass Index 28.3 Const General: comfortable and no acute distress Orientation/consciousness: patient oriented x3 HEENT Other: Unremarkable Head: Yes normal to inspection Neck Neck: Yes normal visual inspection Chest Chest palpation & inspection: normal inspection of the chest Resp Auscultation: clear to auscultation bilaterally Cardio Palpation: normal PMI Heart sounds: S1 normal heart sound present, S2 normal heart sound present, no gallops, no murmurs and no rubs GI Palpation (GI): Soft to palpation Back/Spine/Pelvis Other: unremarkable Skin General skin exam: no rashes or lesions noted Neuro General: patient oriented x3 Extrem General: Yes normal to inspection Psych Mental Status: mental status grossly normal Assessment & Plan Assessment & Plan (1) Atherosclerotic cardiovascular disease: Code(s): I25.10 - Atherosclerotic heart disease of [place] coronary artery without angina pectoris Category: Medical (2) Stroke due to stenosis of right carotid artery: Code(s): I63.231 - Cerebral infarction due to unspecified occlusion or stenosis of right carotid arteries Category: Medical Plan Cardiac studies reviewed. Cardiac catheterization from 2019 shows patent stent in the LAD; 90% ostial diagonal disease-small vessel; 80% ostial right PDA disease, medically managed. In the recent echocardiogram last month, LVEF is 49%. Basal inferior/mid inferior/apical septum/mid inferolateral hypokinesis. Ascending aortic size 4 cm. Wall motion abnormalities could be related to PDA disease. Wall motion abnormalities have been seen in the past. In the exercise stress perfusion study, he did get jaw discomfort and EKG changes but perfusion component without any significant findings. Overall, can continue treatment for stable CAD as he does not have any symptoms otherwise. Also there is lot of noncompliance and he just started taking statins. May continue the same without changes. Blood pressure seems stable. With regard to the carotid endarterectomy he is seen to vascular surgeons but still undecided. No specific recommendations and advised to follow-up with vascular. Coding Level of Care Code Est Pt Level 4 (46490) Diagnoses Atherosclerotic cardiovascular disease I25.10 Stroke due to stenosis of right carotid artery I63.231
== END 2023-11-30 09:41 | disposition home or self-care (01) ==
PROVIDERS: Visit Provider Internal Medicine
DX: I25.10 Atherosclerotic heart disease of native coronary artery without angina pectoris (principal); I63.231 Cerebral infarction due to unspecified occlusion or stenosis of right carotid arteries
CPT/HCPCS: 99214

== ENCOUNTER 2023-12-04 09:46 | Outpatient (AMB) | payer MEDICARE, SELFPAY ==
[2023-12-04 10:01] VITALS: BP 120/80; PULSE 80; O2SAT 97; BMI 28.2
--- NOTE | 2023-12-04 10:01 | MHC.PC.OV ---
Vital Signs 12/04/23 10:01 Height 5 ft 9 in Weight 191 lb BMI 28.2 BP 120/80 Blood Pressure Location Lt brachial Position Sitting Pulse 80 Pulse Source Pulse Oximeter Pulse Oximetry (%) 97 Oxygen Delivery Method Room Air Intake Visit Reasons: Est Care/No PCP/Pt @[facility] Card[facility] Vascular Depts Intake Note: Pt is here today as a New Patient to est care Allergies [id number] Reductase Inhibitor Adverse Reaction (Mild, Verified 12/04/23 10:26) Abdominal Pain Medication List - Last Reconciled 12/04/23 by Nanda Hanks MD aspirin 81 mg PO DAILY clopidogrel 75 mg PO DAILY cyanocobalamin (vitamin B-12) 1,000 mcg PO DAILY lisinopril 5 mg See Protocol PO DAILY multivitamin 1 tab PO DAILY nitroglycerin 0.4 mg sublingual Q5M PRN Tobacco use date assessed: 12/04/23 Fall risk assessment: No Falls in past year Last assessed Fall Risk: 12/04/23 Dental Screening Dental Screen Date: 12/04/23 Did you have a dental visit in the last 12 months?: No Was dental information given to patient?: Patient has dentist HPI Est Care/No PCP/Pt @[facility] Cardio & Vascular Depts HPI Details 73 year old male , history of BA, hyperlipidemia, obesity, benign prostatic hyperplasia, peripheral vascular disease, coronary artery disease, obstructive sleep apnea, hypertension, impaired fasting glucose, new to practice , here to establish care with a new PCP. He is currently being seen by both vascular surgery and Cardiology at [facility]. He recently had a stroke and has been diagnosed with carotid stenosis on the right side, that needs surgery per vascular notes. He has a history of coronary disease and prior LAD PCI. He does not like taking medications; in the past, has been on various meds including nitrates, beta-blockers, lisinopril, amlodipine at different times but was complaining of some side effect from all these medications , and hence was never continued taking them. Had also tried statins but could not take them because of musculoskeletal pain, although not entirely clear if it is medication related. He was then tried on Repatha, but could not afford it. Hence was on nothing for cholesterol for a long time but more recently placed back on statins after the stroke. Overall, he states that he feels okay , and denies cardiac symptoms. He is seen vascular surgery in both [place] as well as [facility], but still he is not clear one way or another what he wants to do. He is very reluctant to undergo any surgery. [facility] Medical History (Updated 12/10/23 @ 16:58 by Nanda Hanks MD) Carotid artery stenosis, unilateral Impaired fasting glucose History of CVA (cerebrovascular accident) CAD (coronary artery disease) CHF (congestive heart failure) On beta mere at home HTN (hypertension) Diabetes mellitus DVT (deep venous thrombosis) GERD (gastroesophageal reflux disease) LEMONS (nonalcoholic steatohepatitis) FLORES (obstructive sleep apnea) PVC (premature ventricular contraction) Statin intolerance Atherosclerotic cardiovascular disease History of colonic polyps Surgical History Hx of tonsillectomy History of hand surgery Hx of cardiac cath Hx of colonoscopy Family History Father No problems noted. Mother Stroke Brother Liver disease Social History Household Members: Spouse Housing: House Alcohol intake: current Alcohol intake frequency: does not drink Patient Tobacco Use Status: Never used Tobacco e-Cigarette/Vaping Use: Never Used service: No Current occupational status: retired Cognitive needs: No Hearing needs: No Vision needs: Yes Questionnaire PHQ-9 Over the last 2 weeks, how often have you been bothered by any of the following problems? 1. Little interest or pleasure in doing things: not at all 2. Feeling down, depressed, or hopeless: not at all 3. Trouble falling or staying asleep, or sleeping too much: not at all 4. Feeling tired or having little energy: several days 5. Poor appetite or overeating: several days 6. Feeling bad about yourself - or that you are a failure or have let yourself or your family down: not at all 7. Trouble concentrating on things, such as reading the newspaper or watching television: several days 8. Moving or speaking so slowly that other people could have noticed. Or the opposite - being so fidgety or restless that you have been moving around a lot more than usual: nearly every day 9. Thoughts that you would be better off or of hurting yourself in some way: not at all Total score: 6 Depression Screening Interpretation: Negative Depression Screening Done: Yes 74801 - PHQ-9 Billing: Yes Source: Developed by Drs. Emir Lara, Shankar Justice and colleagues, with an educational josue from [employer]. Thrive Questionnaire Date Thrive assessed: 12/04/23 I am a: Patient What is your living situation today?: I have a steady place to live Within the past 12 months, did the food you bought not last and you didn't have the money to get more?: Never true Within the past 12 months, did you worry whether your food would run out before you got money to buy more?: Never true Do you have trouble paying for medicines?: No Do you have trouble getting transportation to medical appointments?: No Do you have trouble paying your heating and electricity bill?: No Do you have trouble taking care of your child, family member or friend?: No Do you have trouble with day-to-day activities such as bathing, preparing meals, shopping, managing finances, etc.?: No Are you currently unemployed and looking for a job?: No Are you interested in more education?: No THRIVE Score: 0 AUDIT C Alcohol Use Questionnaire (AUDIT-C) 1. How often do you have a drink containing alcohol?: Never Total Score: 0 FRANKLIN-7 AMB Questionnaire FRANKLIN-7 Date FRANKLIN - 7 assessed: 12/04/23 Feeling nervous, anxious, or on edge: 0 = Not at all Not being able to stop or control worryin = Not at all Worrying too much about different things: 1 = Several days Trouble relaxin = Several days Being so restless that it is hard to sit still: 0 = Not at all Becoming easily annoyed or irritable: 1 = Several days Feeling afraid as if something awful might happen: 0 = Not at all Total FRANKLIN-7 score (0-4 normal; 5-9 mild; 10-14 moderate; 15-21 severe): 3 Source: Developed by Drs. Emir Lara, Shankar Justice and colleagues, with an educational josue from [employer]. FRANKLIN-7 Assessment Billing FRANKLIN-7 Assessment Tool: FRANKLIN-7 Assessment 48901 Review of Systems Const Denies body aches, Reports fatigue, Denies fever(s), Denies headache(s) and Denies weakness Eyes Reports no additional complaints ENT Denies dizziness and Denies headache(s) Card Denies chest pain, Denies chest pain with activity, Denies rapid heart rate, Denies pedal edema, Denies irregular heart rhythm, Denies leg edema, Denies lightheadedness, Denies palpitations, Denies dyspnea, Denies dyspnea on exertion and Denies orthopnea Resp Denies cough, Denies dyspnea and Denies dyspnea on exertion GI Denies abdominal pain, Denies melena, Denies hematochezia, Denies change in bowel habits and Denies heartburn Reports no additional complaints Musc Denies abnormal gait, Denies muscle cramps, Denies muscle weakness, Denies numbness, Denies radiating pain into limb and Denies tingling Skin/Breast Denies lesions and Denies rash Neuro Denies abnormal gait, Denies dizziness, Denies headache(s), Denies numbness, Denies tingling and Denies weakness Psych Reports no additional complaints Endo Reports fatigue, Denies polydipsia, Denies polyuria and Denies palpitations Yaron/Lymph Reports no additional complaints Aller/Immun Reports no additional complaints Physical exam (Primary Care) Vital Signs: Last Vital Signs Pulse 80 12/04/23 10:01 BP 120/80 12/04/23 10:01 Pulse Ox 97 12/04/23 10:01 Oxygen Delivery Method Room Air 12/04/23 10:01 BMI result Body Mass Index 28.2 Tobacco/Smoking Status: Tobacco use Status Tobacco use date assessed 12/04/23 12/04/23 10:05 Patient Tobacco Use Status Never used Tobacco 12/04/23 10:05 e-Cigarette/Vaping Use Never Used 12/04/23 10:14 PHQ-9: PHQ-9 Score PHQ-9: Total score 10 12/04/23 10:31 Depression Screening Interpretation: Negative Thrive Assessment: Date of Thrive Assessment Date Thrive assessed 12/04/23 12/04/23 10:17 Const General: no acute distress and alert Orientation/consciousness: patient oriented x3 HENMT Ears: external ears normal, TM's normal bilaterally and EAC's normal General nose exam: Normal external nose present and No nasal discharge present Mouth: Normal oral and palatal mucosa present, oropharynx normal and moist mucous membranes Eyes General: appearance normal, both eyes and all related structures Conjunctivae: conjunctivae normal Sclerae: sclerae normal Pupils: Equal, round and reactive pupils present EOM: EOMs intact bilaterally Neck Neck: Yes full ROM, Yes no lymphadenopathy and Yes supple Resp Effort & Inspection: normal respiratory effort and able to speak in complete sentences Auscultation: clear to auscultation bilaterally Cardio Rate: regular rate Rhythm: regular rhythm Heart sounds: S1 normal heart sound present and S2 normal heart sound present GI Palpation (GI): Soft to palpation, nontender and no masses Auscultation: normal bowel sounds Back/Spine/Pelvis Back: No back tenderness Skin General skin exam: no rashes or lesions noted Neuro General: patient oriented x3, gait normal, tone normal, moves all extremities, Normal light touch and pain sensation and no focal motor deficits Cranial nerves: Yes CN's II-XII intact bilaterally and Yes Equal, round and reactive pupils present Cognition (Neuro): normal cognition Extrem General: Yes full ROM, Yes no joint enlargement, Yes no clubbing, cyanosis or edema and Yes no calf tenderness Psych Appearance: grossly normal and well kempt Mental Status: mental status grossly normal Speech and movement: Normal speech and movement present Affect: normal affect Attitude: cooperative Thought process: Normal thought process present Assessment and Plan Assessment & Plan (1) Essential hypertension: Code(s): I10 - Essential (primary) hypertension Plan: Blood pressure at goal of less than 130/80. Currently on lisinopril 5 mg daily, Reinforced importance of following a low sodium diet, getting regular exercise, and lowering stress levels. (2) CAD (coronary artery disease): Comment: with stent Code(s): I25.10 - Atherosclerotic heart disease of [place] coronary artery without angina pectoris Qualifiers: Coronary Disease-Associated Artery/Lesion type: [place] artery [place] vs. transplanted heart: [place] heart Associated angina: without angina Qualified Code(s): I25.10 - Atherosclerotic heart disease of [place] coronary artery without angina pectoris Plan: Followed by cardiology, currently on aspirin 81 mg daily and rosuvastatin 5 mg daily (3) Stroke due to stenosis of right carotid artery: Code(s): I63.231 - Cerebral infarction due to unspecified occlusion or stenosis of right carotid arteries Plan: Currently on aspirin 81 mg daily and clopidogrel 75 mg daily , started on rosuvastatin 5 mg per tablet, to initially start taking it 1 tablet every other day and then increase to once a day after a day if able to tolerate medication. Advised to take it with Co Q10 100 mg per tab. Reinforced importance of following a low-cholesterol diet and getting regular exercise (4) History of CVA (cerebrovascular accident): Code(s): Z86.73 - Personal history of transient ischemic attack (TIA), and cerebral infarction without residual deficits Plan: Currently on aspirin 81 mg daily and clopidogrel 75 mg daily , started on rosuvastatin 5 mg per tablet, to initially start taking it 1 tablet every other day and then increase to once a day after a day if able to tolerate medication. Advised to take it with Co Q10 100 mg per tab. Reinforced importance of following a low-cholesterol diet and getting regular exercise (5) Hyperlipidemia: Code(s): E78.5 - Hyperlipidemia, unspecified Qualifiers: Hyperlipidemia type: pure hypercholesterolemia Qualified Code(s): E78.00 - Pure hypercholesterolemia, unspecified Plan: Goal LDL cholesterol is less than 70 mg/dL. Restarted back on rosuvastatin 5 mg per tablet, advised to initially take 1 tablet every other day and increase to 1 tablet daily after 2nd week if able to tolerate medication. Repeat fasting lipids, liver enzymes, basic metabolic panel in 3 months (6) Carotid artery stenosis, unilateral: Code(s): I65.29 - Occlusion and stenosis of unspecified carotid artery Plan: 90% stenosis seen on carotid artery, has been evaluated by both [facility] and [place] vascular surgeon, will have recommended noted endarterectomy. Patient however still undecided whether to proceed with the procedure. In the meantime his on aspirin and clopidogrel, started back on statin, and reinforced importance of controlling blood pressure, lipids and glucose levels. (7) Impaired fasting glucose: Code(s): R73.01 - Impaired fasting glucose Plan: Your previous fasting blood sugars were elevated above 100 mg/dL. Impaired glucose metabolism increases the risk for developing diabetes mellitus type 2, as well as heart attack and stroke later on. Lifestyle changes that promotes weight loss, healthy eating habits, and regular exercise are important, and can prevent the progression to diabetes Orders: Orders Lipid Panel 03/05/24 I10 - Essential (primary) hypertension, I25.10 - Atherosclerotic heart disease of [place] coronary artery without angina pectoris, I63.231 - Cerebral infarction due to unspecified occlusion or stenosis of right carotid arteries, R73.01 - Impaired fasting glucose, Z86.73 - Personal history of transient ischemic attack (TIA), and cerebral infarction without residual deficits Aspartate Amino Transferase 03/05/24 I10 - Essential (primary) hypertension, I25.10 - Atherosclerotic heart disease of [place] coronary artery without angina pectoris, I63.231 - Cerebral infarction due to unspecified occlusion or stenosis of right carotid arteries, R73.01 - Impaired fasting glucose, Z86.73 - Personal history of transient ischemic attack (TIA), and cerebral infarction without residual deficits Hemoglobin A1c 03/05/24 I10 - Essential (primary) hypertension, I25.10 - Atherosclerotic heart disease of [place] coronary artery without angina pectoris, I63.231 - Cerebral infarction due to unspecified occlusion or stenosis of right carotid arteries, R73.01 - Impaired fasting glucose, Z86.73 - Personal history of transient ischemic attack (TIA), and cerebral infarction without residual deficits Alanine Aminotransferase 03/05/24 I10 - Essential (primary) hypertension, I25.10 - Atherosclerotic heart disease of [place] coronary artery without angina pectoris, I63.231 - Cerebral infarction due to unspecified occlusion or stenosis of right carotid arteries, R73.01 - Impaired fasting glucose, Z86.73 - Personal history of transient ischemic attack (TIA), and cerebral infarction without residual deficits Basic Metabolic Panel Fasting 03/05/24 I10 - Essential (primary) hypertension, I25.10 - Atherosclerotic heart disease of [place] coronary artery without angina pectoris, I63.231 - Cerebral infarction due to unspecified occlusion or stenosis of right carotid arteries, R73.01 - Impaired fasting glucose, Z86.73 - Personal history of transient ischemic attack (TIA), and cerebral infarction without residual deficits Complete Blood Count Auto Diff 03/05/24 I10 - Essential (primary) hypertension, I25.10 - Atherosclerotic heart disease of [place] coronary artery without angina pectoris, I63.231 - Cerebral infarction due to unspecified occlusion or stenosis of right carotid arteries, R73.01 - Impaired fasting glucose, Z86.73 - Personal history of transient ischemic attack (TIA), and cerebral infarction without residual deficits Vitamin B12 and Folate 03/05/24 I10 - Essential (primary) hypertension, I25.10 - Atherosclerotic heart disease of [place] coronary artery without angina pectoris, I63.231 - Cerebral infarction due to unspecified occlusion or stenosis of right carotid arteries, R73.01 - Impaired fasting glucose, Z86.73 - Personal history of transient ischemic attack (TIA), and cerebral infarction without residual deficits Medications: New rosuvastatin Initially start taking 5 mg 1 tablet every other day for the 1st week and then go up to 1 tablet once a day on the 2nd week 5 mg PO DAILY 30 tabs 2RF coenzyme Q10 (CoQ-10) 100 mg PO DAILY 30 caps 5RF Coding Level of Care Code New Pt Level 4 (39657) Complex EM visit Add On G2211 Diagnoses Essential hypertension I10 Coronary artery disease involving [place] coronary artery of [place] heart without angina pectoris I25.10 Coronary Disease-Associated Artery/Lesion type: [place] artery [place] vs. transplanted heart: [place] heart Associated angina: without angina Stroke due to stenosis of right carotid artery I63.231 History of CVA (cerebrovascular accident) Z86.73 Pure hypercholesterolemia E78.00 Hyperlipidemia type: pure hypercholesterolemia Carotid artery stenosis, unilateral I65.29 Impaired fasting glucose R73.01 Additional Codes FRANKLIN-7 Assessment Billing - FRANKLIN-7 Assessment Tool: FRANKLIN-7 Assessment [id number] ([id number])
== END 2023-12-04 11:25 | disposition home or self-care (01) ==
PROVIDERS: Visit Provider Internal Medicine
DX: I10 Essential (primary) hypertension (principal); I25.10 Atherosclerotic heart disease of native coronary artery without angina pectoris; I63.231 Cerebral infarction due to unspecified occlusion or stenosis of right carotid arteries; Z86.73 Personal history of transient ischemic attack (TIA), and cerebral infarction without residual deficits; E78.00 Pure hypercholesterolemia, unspecified; I65.29 Occlusion and stenosis of unspecified carotid artery; R73.01 Impaired fasting glucose
CPT/HCPCS: 99204; G2211

== ENCOUNTER 2024-01-04 07:55 | Outpatient (AMB) | payer MEDICARE, SELFPAY ==
[2024-01-04 08:01] VITALS: BP 152/71; PULSE 78; BMI 28.2
--- NOTE | 2024-01-04 08:01 | A.OFFVIS_ITS ---
Vital Signs 01/04/24 08:01 Height 5 ft 9 in Weight 191 lb BMI 28.2 BP 152/71 H Blood Pressure Location Lt brachial Position Sitting Pulse 78 Intake Visit Reasons: 6 month follow up Intake Note: Patient 6 month follow up for abdominal bloating. Patient cc: acid reflex, gassy, abdominal bloating, and patient have to eat slowly due some shocking with food. 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 Required: No Accompanied by: Self / Same As Patient Allergies [id number] Reductase Inhibitor Adverse Reaction (Mild, Verified 01/04/24 08:00) Abdominal Pain Medication List - Last Reconciled 01/04/24 by Frannie Padilla MD aspirin 81 mg PO DAILY clopidogrel 75 mg PO DAILY coenzyme Q10 (CoQ-10) 100 mg PO DAILY cyanocobalamin (vitamin B-12) 1,000 mcg PO DAILY ezetimibe 10 mg PO DAILY lisinopril 5 mg See Protocol PO DAILY multivitamin 1 tab PO DAILY nitroglycerin 0.4 mg sublingual Q5M PRN rosuvastatin 5 mg PO DAILY HPI HPI 6 month follow up: Details: GI clinic visit for this 73-year-old male for follow-up of adenomatous colon polyps, elevated LFTs, fatty liver and obesity. ?CHRONIC ILLNESSES:?Essential hypertension, sleep apnea, syncope, elevated PSA, erectile dysfunction. [facility]19 Reviewed INR 1.0, ? BILIRUBIN, TOTAL 1.1 H ? GOT 34 (5-37) (U/L) ? GPT 44 H (0-40) (U/L) ?IMAGING STUDIES: 04/09/2019 ABDOMINAL ULTRASOUND SHOWED: ? Hepatic steatosis with focal fatty sparing. ? Rest of the abdominal ultrasound is unremarkable. ?ENDOSCOPIC STUDIES: 05/23/23 COLONOSCOPY SHOWED: Two small and two medium sized polyps removed Moderate diverticulosis seen in the left colon Moderate hemorrhoids on retroflexed exam. Plan: Repeat Colonoscopy interval based on path results - in 3-5 years if polyps are adenomatous and due to history of adenomatous colon polyp. 07/07/20 COLONOSCOPY SHOWED:? Two small (serrated polyps) and two medium sized (hyperplastic) polyps removed ? Moderate diverticulosis seen in the left colon ? Plan:? Repeat Colonoscopy interval based on path results - in 3 years if polyps are adenomatous and 5 years if polyps are hyperplastic. ? ? ? BIOPSIES SHOWED: A.? Colon, ascending, polypectomy:-? Fragments of sessile serrated polyp. B.? Cecum, polypectomy:? Colonic mucosa with prominent lymphoid aggregate; no dysplasia seen. C.? Colon, proximal ascending, polypectomy:? Sessile serrated polyp with small perineurioma. D.? Rectum, polypectomy:? Hyperplastic mucosal polyp. 06/25/19 colonoscopy showed:? Two polyps removed - BX showed fragments of sessile serrated polyp. ? Small hemorrhoids on retroflexed exam. ? Plan:? Repeat Colonoscopy interval based on path results in 1-2 years if ? cecal polyps are adenomatous to check polypectomy site and 10 years if polyps are hyperplastic. ? Above findings were reviewed with the patient and handout on Colon polyps was given in the discharge area BIOPSIES SHOWED: A.? Colon, ascending, polypectomy:-? Fragments of sessile serrated polyp. B.? Cecum, polypectomy:? Colonic mucosa with prominent lymphoid aggregate; no dysplasia seen. C.? Colon, proximal ascending, polypectomy:? Sessile serrated polyp with small perineurioma. D.? Rectum, polypectomy:? Hyperplastic mucosal polyp. ?TODAY'S VISIT Patient cc: acid reflex, gassy, abdominal bloating, and patient have to eat slowly due some shocking with food. 09/2023 advised carotid endartrectomy after he had a CVA - reluctant due to concern for complications Continues to have abdominal bloating. Gained 10 -11 lbs - ? related to being less active. Denies ankle edema. Complains of increased frequency of micturation Able to loose wt to 183 lbs Resumed walking - tries to walk 7000 steps daily Has bloating when he eats too much bread. Fasting blood sugar range from a 100 to 105 Denies heartburn, dysphagia, constipation or diarrhea. On no medications - takes aspirin intermittently PAST VISITS: Has gained wt from 182 to 192 (187 lbs at home) Has been less active during the winter. Plans to start walking. When he wakes up at 8:30 am, checks his blood sugar and is 120 to 138 Has a brunch at 10 am and has suppper 4 to 5 pm. Bloating has improved since he cut back on carbohydrates. Cut out saturated fat from his diet. Taking some fibre since he notes fatigue and bloating witth bread and whole grain. Taking more fruit and salad Cooks at home and does not eat packaged food. likes to cook. Feeling a little better than last visit. Made some changes in the diet - eating a little less and watching the saturated fat in his diet. Feeling weird - having constipation since Jun, 2021 Feels dizzy when he tries to walk. Notes gas and bloating - like never before Has breakfast at 10 am - 3 eggs, torrez or home cooked ham Takes some cottage cheese or a slice of white cheese Has salads a few times a day Eating a handful of berries and eats nuts every night. Has home cooked meals for dinner at 5 pm - mostly soup Blood sugar levels are 120 to 130 when he wakes up. Wt is going up slowly. Has a Bm every other day and is painful. Trying to avoid the carbs. Continues to walk daily and having some back pain and associated with urination (? due to gas) Lost 14 lbs over the past 3 months by changing his diet. Planning to loose to 170 lbs. Walking 1.5 hrs (5 miles) every day. Using [place] and sesame seed oil. ?Taking more fibre in his diet. ? Continuing to walk daily - loosing weight slowly. ? Using a special belt which is helping with back pain. Had a son who at age 38 yrs from Pulmonary Htn. Tx from [place] to [place] for a lung transplant and did not survive. Has relatives in [place] that he visits periodically ? PAST VISIT: Colonoscopy results were reviewed. ? Denies problems after colonoscopy. ? Lost 10 lbs - has been walking every day. ? Not eating any cold cut meats. ? Working on loosing weight and has lost 7 lbs - fat layer is a little less. ? Weighs 194.5 lbs ? is cooking without fat. ? Unable to excercise due to palpitations. ? Is able to walk with some breaks. ? Denies taking any ETOH for the last 3 yrs. ? He states he drank ETOH in [place] in the and states he was poisoned and he was jaundiced afterwards. He is uncertain of the diagnosis but a medication cleared it up. ? Denies exposure to Hep B, C, D, HIV or tuberculosis ? Admits cardiac issues- HTN, had a stent placed in 2015, ahs SOB when walking on an incline, cardiology appointment in June 2019- may request for him to seen sooner prior to colonoscopy for clearance. ? Denies CP but has some mild discomfort with?exercise [facility] Medical History (Updated 12/10/23 @ 16:58 by Nanda Hanks MD) Carotid artery stenosis, unilateral Impaired fasting glucose History of CVA (cerebrovascular accident) CAD (coronary artery disease) CHF (congestive heart failure) On beta mere at home HTN (hypertension) Diabetes mellitus DVT (deep venous thrombosis) GERD (gastroesophageal reflux disease) LEMONS (nonalcoholic steatohepatitis) FLORES (obstructive sleep apnea) PVC (premature ventricular contraction) Statin intolerance Atherosclerotic cardiovascular disease History of colonic polyps Surgical History Hx of tonsillectomy History of hand surgery Hx of cardiac cath Hx of colonoscopy Family History Father No problems noted. Mother Stroke Brother Liver disease Social History Household Members: Spouse Housing: House Alcohol intake: current Alcohol intake frequency: does not drink Patient Tobacco Use Status: Never used Tobacco e-Cigarette/Vaping Use: Never Used service: No Current occupational status: retired Cognitive needs: No Hearing needs: No Vision needs: Yes Review of Systems Const All systems reviewed & are unremarkable except as noted in HPI and below Physical Exam Vital Signs: BMI result Body Mass Index 28.2 Const General: healthy appearing and no acute distress Nutritional Appearance: overweight Orientation/consciousness: patient oriented x3 Limitations: no limitations HEENT Head: Yes normal to inspection Ears: hearing grossly normal bilaterally Eyes Sclerae: sclerae normal Pupils: Equal, round and reactive pupils present Neck Neck: Yes normal visual inspection Chest Chest palpation & inspection: normal inspection of the chest Resp Effort & Inspection: normal respiratory effort Auscultation: clear to auscultation bilaterally Cardio Palpation: normal PMI Rate: regular rate Rhythm: regular rhythm Heart sounds: S1 normal heart sound present, S2 normal heart sound present and no murmurs GI Palpation (GI): Soft to palpation, nontender and No hepatosplenomegaly present Auscultation: normal bowel sounds Rectal Exam - Male: Yes deferred Skin General skin exam: no rashes or lesions noted Neuro General: patient oriented x3, gait normal and moves all extremities Cranial nerves: Yes Equal, round and reactive pupils present Psych Appearance: grossly normal Mental Status: mental status grossly normal Assessment & Plan Assessment & Plan (1) LEMONS (nonalcoholic steatohepatitis): Code(s): K75.81 - Nonalcoholic steatohepatitis (LEMONS) Category: Medical (2) History of colonic polyps: Code(s): Z86.010 - Personal history of colonic polyps Category: Medical (3) Abdominal bloating: Code(s): R14.0 - Abdominal distension (gaseous) Category: Medical (4) Elevated LFTs: Code(s): R79.89 - Other specified abnormal findings of blood chemistry Category: Medical Plan 73 YM with Essential hypertension, sleep apnea, syncope, elevated PSA, erectile dysfunction, CAD, seen for FU of elevated LFTs likely due to fatty liver associated with obesity and follow-up of adenomatous colon polyps. Patient had a colonoscopy in Jul, 2020 and three sessile serrated polyps were removed.? Repeat colonoscopy is advised in 3 years (due in 07/2023). Patient was advised weight reduction for fatty liver. He and his are working on changing to a healthier diet with more fruits and vegetables. LFTs have been normal since he lost weight. He was advised to stop vitamin E when he finishes the current prescription. Patient handout on fatty liver from up-to-date was given to the patient at a previous visit. Symptoms of bloating and constipation have improved with change in diet (cutting back on fried foods). Pt was advised to establish care with a primary care physician for management of elevated cholesterol (since he has been following up with Cardiology and GI only) Repeat labs to recheck cholesterol at patient's request. Still looking for a PCP - given names of PCP providers to establish care. Advised a trail of a FODMAP diet for 6 weeks during his past visit. 07/06/23 Intermittent elevation of LFTs - likely due to steatohepatitis Liver fibrosis test showed Liver fibrosis score of 0.26 and stage F2 Schedule abd US with elastography 09/2023 ABD US WITH ELASTOGRAPHY SHOWED: 1. There is generalized increase in hepatic echotexture, consistent with fatty infiltration or hepatocellular disease. Please correlate clinically. No focal hepatic mass or intrahepatic biliary dilatation is seen. 2. Liver elastography: Measurements are consistent with a high probability of normal liver stiffness. Pt was advised to continue working on wt reduction FU labs ordered by PCP Follow-up in 6 month Coding Level of Care Code Est Pt Level 3 (06930) Diagnoses LEMONS (nonalcoholic steatohepatitis) K75.81 History of colonic polyps Z86.010 Abdominal bloating R14.0 Elevated LFTs R79.89 Time Spent (min) 20
== END 2024-01-04 08:24 | disposition home or self-care (01) ==
PROVIDERS: Visit Provider Internal Medicine Gastroenterology
DX: K75.81 Nonalcoholic steatohepatitis (NASH) (principal); Z86.010 Personal history of colon polyps; R14.0 Abdominal distension (gaseous); R79.89 Other specified abnormal findings of blood chemistry
CPT/HCPCS: 99213

== ENCOUNTER → 2024-01-04 07:55 | Outpatient (BNVA) | payer MEDICARE, SELFPAY | PROVIDERS: Visit Provider Internal Medicine Gastroenterology | DX: K21.9 Gastro-esophageal reflux disease without esophagitis (principal); K75.81 Nonalcoholic steatohepatitis (NASH); R14.0 Abdominal distension (gaseous); R79.89 Other specified abnormal findings of blood chemistry; Z86.010 Personal history of colon polyps | CPT/HCPCS: 99212 ==

== ENCOUNTER 2024-03-04 13:07 | Outpatient (AMB) | payer MEDICARE, SELFPAY ==
[2024-03-04 13:38] VITALS: BP 132/70; PULSE 84; BMI 28.6
--- NOTE | 2024-03-04 13:38 | MHC.PC.OV ---
Vital Signs 03/04/24 13:38 Height 5 ft 9 in Weight 194 lb BMI 28.6 BP 132/70 Blood Pressure Location Rt brachial Position Sitting Pulse 84 Pulse Source Pulse Oximeter Intake Visit Reasons: 3M F/U Lipids IFG HTN after labs done Intake Note: Pt is here today for his 3mo. lipids,HTN and labs Allergies Dtcyeff-JMJ-KmF Reductase Inhibitor Adverse Reaction (Mild, Verified 03/04/24 13:59) Abdominal Pain Medication List - Last Reconciled 03/04/24 by Nanda Hanks MD aspirin 81 mg PO DAILY coenzyme Q10 (CoQ-10) 100 mg PO DAILY cyanocobalamin (vitamin B-12) 1,000 mcg PO DAILY ezetimibe 10 mg PO DAILY lisinopril 5 mg See Protocol PO DAILY multivitamin 1 tab PO DAILY nitroglycerin 0.4 mg sublingual Q5M PRN rosuvastatin 5 mg PO DAILY Tobacco use date assessed: 03/04/24 Fall risk assessment: No Falls in past year Last assessed Fall Risk: 03/04/24 Dental Screening Dental Screen Date: 03/04/24 Did you have a dental visit in the last 12 months?: Yes Did you have a dental problem in the last 6 months where you did not have access to dental care?: Yes Was dental information given to patient?: Patient has dentist HPI 3M F/U Lipids IFG HTN after labs done HPI Details 73-year-old male with past medical history significant for CVA, hyperlipidemia, obesity, benign prostatic hyperplasia, peripheral vascular disease, coronary artery disease, obstructive sleep apnea, hypertension, impaired fasting glucose, and carotid artery stenosis on the right, here for follow-up on his lipids, hypertension . He is currently being seen by both vascular surgery and Cardiology at [facility]. Currently on aspirin 81 mg daily ezetimibe 10 mg daily, lisinopril 5 mg once a day and rosuvastatin 5 mg daily. Tolerating medications at present with no adverse effects noted. [facility] Medical History (Updated 03/04/24 @ 14:11 by Nanda Hanks MD) Vaccination declined by patient Carotid artery stenosis, unilateral Impaired fasting glucose History of CVA (cerebrovascular accident) CAD (coronary artery disease) CHF (congestive heart failure) On beta mere at home HTN (hypertension) Diabetes mellitus DVT (deep venous thrombosis) GERD (gastroesophageal reflux disease) LEMONS (nonalcoholic steatohepatitis) FLORES (obstructive sleep apnea) PVC (premature ventricular contraction) Statin intolerance Atherosclerotic cardiovascular disease History of colonic polyps Surgical History Hx of tonsillectomy History of hand surgery Hx of cardiac cath Hx of colonoscopy Family History Father No problems noted. Mother Stroke Brother Liver disease Social History Household Members: Spouse Housing: House Alcohol intake: current Alcohol intake frequency: does not drink Patient Tobacco Use Status: Never used Tobacco e-Cigarette/Vaping Use: Never Used service: No Current occupational status: retired Cognitive needs: No Hearing needs: No Vision needs: Yes Questionnaire PHQ-9 Over the last 2 weeks, how often have you been bothered by any of the following problems? Depression Screening Interpretation: Negative Depression Screening Done: Yes Source: Developed by Drs. Emir Lara, Roxanne Dolan, Shankar Mack and colleagues, with an educational josue from [employer]. Thrive Questionnaire Date Thrive assessed: 12/04/23 FRANKLIN-7 AMB Questionnaire FRANKLIN-7 Date FRANKLIN - 7 assessed: 12/04/23 Source: Developed by Drs. Emir Lara, Roxanne Dolan, Shankar Mack and colleagues, with an educational josue from [employer]. Review of Systems Const All systems reviewed & are unremarkable except as noted in HPI and below Denies body aches, Denies fever(s), Denies headache(s) and Denies weakness Eyes Reports no additional complaints ENT Denies dizziness and Denies headache(s) Card Denies chest pain, Denies chest pain with activity, Denies rapid heart rate, Denies pedal edema, Denies irregular heart rhythm, Denies leg edema, Denies lightheadedness, Denies palpitations, Denies dyspnea, Denies dyspnea on exertion and Denies orthopnea Resp Denies cough, Denies dyspnea and Denies dyspnea on exertion GI Denies abdominal pain, Denies melena, Denies hematochezia, Denies change in bowel habits and Denies heartburn Reports no additional complaints Musc Denies abnormal gait, Denies muscle cramps, Denies muscle weakness, Denies numbness, Denies radiating pain into limb and Denies tingling Skin/Breast Denies lesions and Denies rash Neuro Denies abnormal gait, Denies dizziness, Denies headache(s), Denies numbness, Denies tingling and Denies weakness Endo Denies polydipsia, Denies polyuria and Denies palpitations Physical exam (Primary Care) Vital Signs: Last Vital Signs Pulse 84 03/04/24 13:38 BP 132/70 03/04/24 13:38 BMI result Body Mass Index 28.6 Tobacco/Smoking Status: Tobacco use Status Tobacco use date assessed 03/04/24 03/04/24 13:42 Patient Tobacco Use Status Never used Tobacco 03/04/24 13:40 e-Cigarette/Vaping Use Never Used 03/04/24 13:40 Depression Screening Interpretation: Negative Thrive Assessment: Date of Thrive Assessment Date Thrive assessed 12/04/23 03/04/24 13:40 Const General: no acute distress and alert Orientation/consciousness: patient oriented x3 HENMT Ears: external ears normal, TM's normal bilaterally and EAC's normal General nose exam: Normal external nose present and No nasal discharge present Mouth: Normal oral and palatal mucosa present, oropharynx normal and moist mucous membranes Eyes General: appearance normal, both eyes and all related structures Conjunctivae: conjunctivae normal Sclerae: sclerae normal Pupils: Equal, round and reactive pupils present EOM: EOMs intact bilaterally Neck Neck: Yes full ROM, Yes no lymphadenopathy and Yes supple Resp Effort & Inspection: normal respiratory effort and able to speak in complete sentences Auscultation: clear to auscultation bilaterally Cardio Rate: regular rate Rhythm: regular rhythm Heart sounds: S1 normal heart sound present and S2 normal heart sound present GI Palpation (GI): Soft to palpation, nontender and no masses Auscultation: normal bowel sounds Back/Spine/Pelvis Back: No back tenderness Skin General skin exam: no rashes or lesions noted Neuro General: patient oriented x3, gait normal, tone normal, moves all extremities, Normal light touch and pain sensation and no focal motor deficits Cranial nerves: Yes CN's II-XII intact bilaterally and Yes Equal, round and reactive pupils present Cognition (Neuro): normal cognition Extrem General: Yes full ROM, Yes no joint enlargement, Yes no clubbing, cyanosis or edema and Yes no calf tenderness Results Reviewed Results Reviewed: Name: Toño Caceres Age/Sex: 73/M : 1950 Unit#: [id number] Attend Dr: Kishan Bradley MD Re11/30/23 Status: DEP REF Location: .LAB Disch: SPEC : [id number] TABITHA: 11/30/23 STATUS: COMP REQ : [id number] RECD: 11/30/[address]: Frannie Padilla MD COMP: 11/30/23 ENTERED: 11/30/[address]: Physician,None Kishan Bradley MD ORDERED: Liver Panel, Lipid Panel Test Result Flag Reference Total Bili 1.1 H 0.0-1.0 mg/dL Direct Bili 0.3 0.0-0.5 mg/dL AST (GOT) 33 5-37 U/L ALT (GPT) 53 H 0-40 U/L Protein, Total 7.5 6.5-8.0 g/dL Alb 4.4 3.5-5.0 g/dL Triglyceride 131 <150 mg/dL Desirable Triglyceride: less than 150 mg/dL Borderline High Triglyceride 150-199 mg/dL High Triglyceride: 200-499 mg/dL Very High Triglyceride: greater than or equal to 5OO mg/dL Cholesterol 178 <200 mg/dL Desirable Cholesterol: less than 200 mg/dL Borderline High Cholesterol: 200-239 mg/dL High Cholesterol: greater than 239 mg/dL LDL Calculated 113 H <100 mg/dL Desirable LDL: less than 100 mg/dL Near Optimal/Above Optimal LDL: 110-129 mg/dL Borderline High LDL: 130-159 mg/dL High LDL: 160-189 mg/dL Very High LDL: greater than or equal to 190 mg/dL HDL 39 L >40 mg/dL Desirable HDL: greater than 40 mg/dL Note: This HDL assay may give artificially low results in patients with liver disease. Alk Phos 46 39-117 U/L Coding Level of Care Code Est Pt Level 4 (93191) Complex EM visit Add On G2211 Diagnoses Essential hypertension I10 Pure hypercholesterolemia E78.00 Hyperlipidemia type: pure hypercholesterolemia Vaccination declined by patient Z28.21
== END 2024-03-04 15:24 | disposition home or self-care (01) ==
PROVIDERS: Visit Provider Internal Medicine
DX: I10 Essential (primary) hypertension (principal); E78.00 Pure hypercholesterolemia, unspecified; Z28.21 Immunization not carried out because of patient refusal

== ENCOUNTER → 2024-03-04 13:07 | Outpatient (BNVA) | payer MEDICARE, SELFPAY | PROVIDERS: Visit Provider Internal Medicine | DX: I10 Essential (primary) hypertension (principal); E78.00 Pure hypercholesterolemia, unspecified; Z28.21 Immunization not carried out because of patient refusal | CPT/HCPCS: 99212 ==

== ENCOUNTER 2024-07-04 09:29 | Outpatient (REF) | payer MEDICARE, SELFPAY ==
[2024-07-04 09:45] LABS: MANUAL DIFF FLAG NO
[2024-07-04 10:46] LABS: Basophils Absolute Auto 0.1 X10*3/uL (0.0-0.2); Basophils Percent Auto 0.9 % (0-2); Eosinophils Absolute Auto 0.2 X10*3/uL (0.0-0.4); Eosinophils Percent Auto 2.7 % (0-4); Hematocrit 43.7 % (42.0-52.0); Hemoglobin 15.4 g/dl (14.0-18.0); Imm Gran Abs Auto 0.02 X10*3/uL (0.00-0.03); Imm Gran Pct Auto 0.3 % (0.0-0.4); Lymphocytes Absolute Auto 2.1 X10*3/uL (1.2-4.9); Lymphocytes Percent Auto 33.4 % (20-40); Mean Corpuscular HGB Conc 35.2 g/dl (31.0-36.0); Mean Corpuscular Hemoglobin 31.3 pg (27.0-33.0); Mean Corpuscular Volume 88.8 fL (80.0-98.0); Mean Platelet Volume 10.1 fL (9.4-12.4); Monocytes Absolute Auto 0.7 X10*3/uL (0.1-1.2); Monocytes Percent Auto 10.8 % (2-11); Neutrophils Absolute Auto 3.3 x10*3/uL (2.0-8.3); Neutrophils Percent Auto 51.9 % (45-73); Platelet Count 239 X10*3/uL (160-400); Red Blood Count 4.92 X10*6/uL (4.60-5.80); Red Cell Distribution Width 13.1 % (11.0-16.0); White Blood Count 6.4 X10*3/uL (4.8-10.8)
[2024-07-04 10:56] LABS: Estimated Average Glucose 126 mg/dL; Hemoglobin A1C 171.1446 umol/L; Total Hemoglobin (HGBA1C) 4106.9237 umol/L
[2024-07-04 11:18] LABS: Alanine Aminotransferase 55 U/L (0-40); Anion Gap 14 (12-20); Aspartate Amino Transferase 40 U/L (5-37); Blood Urea Nitrogen 18 mg/dL (9-16); Calcium 9.5 mg/dL (8.4-10.2); Carbon Dioxide 27 mmol/L (22-29); Chloride 103 mmol/L (96-108); Cholesterol 210 mg/dL (<200); Estimated Glomerular Filt Rate > 60; Glucose Fasting 127 mg/dL (60-99); HDL Cholesterol 42 mg/dL (>40); LDL Cholesterol Calculated 139 mg/dL (<100); Potassium 4.6 mmol/L (3.3-5.1); Sodium 139 mmol/L (135-145); Triglycerides 148 mg/dL (<150)
[2024-07-04 11:52] LABS: Folate 16.4 ng/mL (> or = 4.0); Vitamin B12 463 pg/mL (200-900)
== END 2024-07-04 09:30 | disposition home or self-care (01) ==
LOC: HO.LAB 09:29
PROVIDERS: PCP Internal Medicine; Visit Provider Internal Medicine
DX: I63.231 Cerebral infarction due to unspecified occlusion or stenosis of right carotid arteries (principal); I25.10 Atherosclerotic heart disease of native coronary artery without angina pectoris; I10 Essential (primary) hypertension; Z86.73 Personal history of transient ischemic attack (TIA), and cerebral infarction without residual deficits; R73.01 Impaired fasting glucose
CPT/HCPCS: 36415; 80048; 80061; 82607; 82746; 83036; 84450; 84460; 85025

== ENCOUNTER → 2024-07-11 08:54 | Outpatient (BNVA) | payer MEDICARE, SELFPAY | PROVIDERS: Visit Provider Internal Medicine Gastroenterology | DX: K75.81 Nonalcoholic steatohepatitis (NASH) (principal); R14.0 Abdominal distension (gaseous); R79.89 Other specified abnormal findings of blood chemistry; R13.14 Dysphagia, pharyngoesophageal phase; Z86.0100 Personal history of colon polyps, unspecified | CPT/HCPCS: 99212 ==

== ENCOUNTER 2024-07-17 07:49 | Outpatient (REF) | payer MEDICARE, SELFPAY ==
--- NOTE | ~2024-07-17 | FL_ITS ---
EXAMINATION: XR FLUOROSCOPY UPPER GI WITH AIR CLINICAL INFORMATION: Dysphagia. COMPARISON: None TECHNIQUE: Fluoroscopic air contrast upper GI examination was performed utilizing standard techniques with thin and thick barium and effervescent granules. Numerous spot images were obtained. FINDINGS: Lateral cine images of the oropharynx and hypopharynx demonstrate normal swallow mechanism with normal epiglottic inversion and soft palate elevation. No tracheal penetration, glottic or subglottic aspiration identified. No nasopharyngeal reflux present. Hypopharyngeal structures appear normal without evidence of mass or diverticulum. There was no significant cricopharyngeal achalasia. Dual and single contrast images of the esophagus demonstrate normal caliber, contour, and mucosal pattern. No masses or ulcerations are identified. A nonobstructing Schatzki's ring is present. Esophageal peristalsis is mildly disorganized. A small type I hiatal hernia is present. No significant gastroesophageal reflux was seen during the course of the examination and on reflux views. Dual contrast and single contrast images of the stomach demonstrated normal contour and mucosal pattern without evidence of mass, ulceration, or other abnormality. Contrast freely passed into the gastric antrum and duodenal bulb without delay. Single and air-contrast images of the duodenal bulb demonstrate no abnormality. The duodenal sweep has a normal appearance, course, and mucosal fold appearance. The imaged proximal jejunum has a normal fold pattern and caliber. FLUOROSCOPY TIME: 2 minutes 39 seconds Number of Spot Images: 6 Number of Cine: 10 DOSE AREA PRODUCT: 2103 uGy-m2 (microgray-meter squared) FL/FL barium swallow with air IMPRESSION: 1. Nonobstructing Schatzki's ring. 2. Mild esophageal dysmotility. 3. Small type I hiatal hernia. This procedure was performed by Tyshawn Lopez PA-C, and supervised by Dr. Jane Electronically signed by: Brett Jane MD 07/18/2024 09:09 AM [facility]
== END 2024-07-17 07:50 | disposition home or self-care (01) ==
LOC: HO.XRAY 07:49
PROVIDERS: Visit Provider Internal Medicine Gastroenterology
DX: R13.14 Dysphagia, pharyngoesophageal phase (principal)
CPT/HCPCS: 74221

== ENCOUNTER → 2024-07-17 07:51 | Outpatient (BNV) | payer MEDICARE, SELFPAY | PROVIDERS: Visit Provider Physician Assistant Surgical | DX: R13.10 Dysphagia, unspecified (principal) | CPT/HCPCS: 74246; 74248 ==

== ENCOUNTER 2024-07-23 14:18 | Outpatient (AMB) | payer MEDICARE, SELFPAY ==
--- NOTE | 2024-07-23 14:31 | A.OFFVIS_ITS ---
Vital Signs 07/23/24 14:32 Height 5 ft 9 in Weight 189 lb 9.561 oz BMI 28.0 BP 150/78 H Blood Pressure Location Lt brachial Position Sitting Pulse 90 Pulse Source Monitor Intake Visit Reasons: 6m follow up Allergies [id number] Reductase Inhibitor Adverse Reaction (Mild, Verified 07/11/24 08:56) Abdominal Pain Medication List - Last Reconciled 07/23/24 by Kishan Bradley MD aspirin 81 mg PO DAILY coenzyme Q10 (CoQ-10) 100 mg PO DAILY cyanocobalamin (vitamin B-12) 1,000 mcg PO DAILY ezetimibe 10 mg PO DAILY lisinopril 5 mg See Protocol PO DAILY multivitamin 1 tab PO DAILY nitroglycerin 0.4 mg sublingual Q5M PRN rosuvastatin 5 mg PO DAILY HPI Comments Details: Toño returns for follow-up regarding coronary and vascular disease. To recall, he has a history of coronary disease and prior LAD PCI. He does not like taking medications; in the past, has been on various meds including nitrates, beta-blockers, lisinopril, amlodipine at different times but was complaining of some side effect or the other and hence was never taking them. Had also tried statins but could not take them because of musculoskeletal pain, although not entirely clear if it is medication related. Then tried Repatha and could not afford. Hence was on nothing for cholesterol for a long time but more recently back on statins. In 2023, he had a stroke and saw vascular surgery in [place] and [facility] but decided against any carotid interventions. He states he wants to leave it that way. With regard to medications, again on minimal. Blood pressure is slightly high but he states at home it is lower. He is on a small dose of statins now. Denies any cardiac symptoms. [facility] Medical History (Updated 07/11/24 @ 09:41 by Frannie Padilla MD) Vaccination declined by patient Carotid artery stenosis, unilateral Impaired fasting glucose History of CVA (cerebrovascular accident) CAD (coronary artery disease) CHF (congestive heart failure) On beta mere at home HTN (hypertension) Diabetes mellitus DVT (deep venous thrombosis) GERD (gastroesophageal reflux disease) LEMONS (nonalcoholic steatohepatitis) FLORES (obstructive sleep apnea) PVC (premature ventricular contraction) Statin intolerance Atherosclerotic cardiovascular disease History of colonic polyps Surgical History Hx of tonsillectomy History of hand surgery Hx of cardiac cath Hx of colonoscopy Family History Father No problems noted. Mother Stroke Brother Liver disease Social History Household Members: Spouse Housing: House Alcohol intake: current Alcohol intake frequency: does not drink Patient Tobacco Use Status: Never used Tobacco e-Cigarette/Vaping Use: Never Used service: No Current occupational status: retired Cognitive needs: No Hearing needs: No Vision needs: Yes Review of Systems Const Denies weakness ENT Denies dizziness Card Denies chest pain, Denies chest pain with activity, Denies syncope, Denies rapid heart rate, Denies pedal edema, Denies edema, Denies leg edema, Denies lightheadedness, Denies palpitations, Denies dyspnea, Denies dyspnea on exertion and Denies orthopnea Resp Denies cough, Denies dyspnea and Denies dyspnea on exertion GI Denies hematochezia and Denies change in stool character Musc Denies abnormal gait, Denies muscle cramps, Denies muscle weakness, Denies numbness, Denies radiating pain into limb and Denies tingling Neuro Denies abnormal gait, Denies dizziness, Denies syncope, Denies numbness, Denies tingling and Denies weakness Endo Denies palpitations Physical Exam Vital Signs: Last Vital Signs Pulse 90 07/23/24 14:32 BP 150/78 H 07/23/24 14:32 BMI result Body Mass Index 28.0 Const General: comfortable and no acute distress Orientation/consciousness: patient oriented x3 HEENT Other: Unremarkable Head: Yes normal to inspection Neck Neck: Yes normal visual inspection Chest Chest palpation & inspection: normal inspection of the chest Resp Auscultation: clear to auscultation bilaterally Cardio Palpation: normal PMI Heart sounds: S1 normal heart sound present, S2 normal heart sound present, no gallops, Murmur heart sound present systolic II/ and no rubs GI Palpation (GI): Soft to palpation Back/Spine/Pelvis Other: unremarkable Skin General skin exam: no rashes or lesions noted Neuro General: patient oriented x3 Extrem General: Yes normal to inspection Psych Mental Status: mental status grossly normal Office Procedures EKG Details: EKG with underlying sinus rhythm at 90/Min; nonspecific ST-T changes; [place]. [address]-Itmdkyxksboufrkym, Complete Assessment & Plan Assessment & Plan (1) Atherosclerotic cardiovascular disease: Code(s): I25.10 - Atherosclerotic heart disease of [place] coronary artery without angina pectoris Category: Medical Plan Cardiac studies reviewed. Cardiac catheterization from 2019 shows patent stent in the LAD; 90% ostial diagonal disease-small vessel; 80% ostial right PDA disease, medically managed. In the last echocardiogram, LVEF is 49%. Basal inferior/mid inferior/apical septum/mid inferolateral hypokinesis. Ascending aortic size 4 cm. Wall motion abnormalities could be related to PDA disease. Wall motion abnormalities have been seen in the past. In the exercise stress perfusion study, he did get jaw discomfort and EKG changes but perfusion component without any significant findings. Overall, known coronary disease, medication noncompliance but otherwise no clinically concerning symptoms. With regard to medications, continue aspirin. Blood pressure is slightly high today but he states it is lower at home. Any case, he is not willing to go up on the lisinopril dosing. For lipids, he is on statins and Zetia as listed. Again levels are suboptimal but he is not willing to make changes. He has been on PCSK9 inhibitors in the past but again not willing to try. No changes made in his meds. Advised him to contact us immediately if any concerning cardiac symptoms and he understands that. Coding Level of Care Code Est Pt Level 4 (33047) Diagnoses Atherosclerotic cardiovascular disease I25.10 CPT Codes EKG - CPT: 05259-[id number], Complete ([id number])
[2024-07-23 14:32] VITALS: BP 150/78; PULSE 90; BMI 28.0
== END 2024-07-23 14:53 | disposition home or self-care (01) ==
PROVIDERS: Visit Provider Internal Medicine
DX: I25.10 Atherosclerotic heart disease of native coronary artery without angina pectoris (principal)
CPT/HCPCS: 93010; 99214

== ENCOUNTER → 2024-07-23 14:18 | Outpatient (BNVA) | payer MEDICARE, SELFPAY | PROVIDERS: Visit Provider Internal Medicine | DX: I25.10 Atherosclerotic heart disease of native coronary artery without angina pectoris (principal) | CPT/HCPCS: 93005; 99212 ==

== ENCOUNTER → 2024-08-27 11:10 | Outpatient (BNVA) | payer MEDICARE, SELFPAY | PROVIDERS: Visit Provider Internal Medicine ==

== ENCOUNTER 2024-08-29 08:40 | Outpatient (REF) | payer MEDICARE, SELFPAY ==
[2024-08-29 09:50] LABS: Estimated Average Glucose 128 mg/dL; Hemoglobin A1c % 6.1 % (<6.0); Total Hemoglobin (HGBA1C) 4029.0841 umol/L
[2024-08-29 10:24] LABS: Anion Gap 11 (12-20); Aspartate Amino Transferase 40 U/L (5-37); Blood Urea Nitrogen 19 mg/dL (9-16); Calcium 9.3 mg/dL (8.4-10.2); Carbon Dioxide 27 mmol/L (22-29); Chloride 107 mmol/L (96-108); Cholesterol 208 mg/dL (<200); Estimated Glomerular Filt Rate > 60; Glucose Fasting 120 mg/dL (60-99); HDL Cholesterol 41 mg/dL (>40); LDL Cholesterol Calculated 139 mg/dL (<100); Potassium 4.4 mmol/L (3.3-5.1); Sodium 141 mmol/L (135-145); Triglycerides 143 mg/dL (<150)
[2024-08-29 10:37] LABS: Alanine Aminotransferase 51 U/L (0-40)
== END 2024-08-29 08:41 | disposition home or self-care (01) ==
LOC: HO.LAB 08:40
PROVIDERS: PCP Internal Medicine; Visit Provider Internal Medicine
DX: E78.00 Pure hypercholesterolemia, unspecified (principal); I65.29 Occlusion and stenosis of unspecified carotid artery; R73.01 Impaired fasting glucose; I25.10 Atherosclerotic heart disease of native coronary artery without angina pectoris; I10 Essential (primary) hypertension; Z78.9 Other specified health status
CPT/HCPCS: 36415; 80048; 80061; 82550; 83036; 84450; 84460

== ENCOUNTER 2024-09-03 11:05 | Outpatient (AMB) | payer MEDICARE, SELFPAY ==
[2024-09-03 11:44] VITALS: BP 140/70; PULSE 86; RESP 16; TEMP 36.5; O2SAT 95; BMI 28.9
--- NOTE | 2024-09-03 11:44 | A.OFFPC_ITS ---
Vital Signs 09/03/24 11:44 Height 5 ft 9 in Weight 196 lb BMI 28.9 BP 140/70 H Blood Pressure Location Lt brachial Position Sitting Respiration 16 Pulse 86 Pulse Source Pulse Oximeter Temp 97.7 F Temp Source Oral Pulse Oximetry (%) 95 Oxygen Delivery Method Room Air Intake Visit Reasons: follow up labs Intake Note: Pt is here today for his lab results f/u Allergies Rzowhnw-BGG-QvD Reductase Inhibitor Adverse Reaction (Mild, Verified 09/03/24 12:11) Abdominal Pain Medication List - Last Reconciled 09/03/24 by Nanda Hanks MD aspirin 81 mg PO DAILY ezetimibe 10 mg PO DAILY lisinopril 5 mg See Protocol PO DAILY multivitamin 1 tab PO DAILY nitroglycerin 0.4 mg sublingual Q5M PRN rosuvastatin 5 mg PO DAILY vitamin B complex 1 tab PO DAILY Tobacco use date assessed: 09/03/24 Fall risk assessment: No Falls in past year Last assessed Fall Risk: 09/03/24 Dental Screening Dental Screen Date: 09/03/24 Did you have a dental visit in the last 12 months?: Yes Did you have a dental problem in the last 6 months where you did not have access to dental care?: No Was dental information given to patient?: Patient has dentist HPI follow up labs HPI Details 73-year-old male with past medical histo ry of CVA, hyperlipidemia, obesity, benign prostatic hyperplasia, peripheral vascular disease, coronary artery disease and prior LAD PCI, obstructive sleep apnea, hypertension, impaired fasting glucose, and carotid artery stenosis on the right, here for follow-up on his lipids, hypertension . He is currently on aspirin 81 mg daily ezetimibe 10 mg daily, lisinopril 5 mg once a day and rosuvastatin 5 mg daily. Blood pressure mildly elevated on today's visit, currently on lisinopril 5 mg daily. Previously was on nitrates, beta-blockers, and amlodipine at different times but complained of some side effects with each of them and has stopped taking those medications. He was seen by Cardiology 2 months ago with no changes made in his treatment. Denies any cardiac symptoms at present time. He had a stroke in 2023 here to severe right internal carotid artery stenosis, was seen and evaluated by vascular surgery in [place] and [facility] who recommended carotid endarterectomy, but patient decided against any carotid interventions. He has no complaints of chest pain, no lightheadedness or shortness of breath. He however has gained weight since last visit [facility] Medical History Vaccination declined by patient Carotid artery stenosis, unilateral Impaired fasting glucose History of CVA (cerebrovascular accident) CAD (coronary artery disease) CHF (congestive heart failure) On beta mere at home HTN (hypertension) Diabetes mellitus DVT (deep venous thrombosis) GERD (gastroesophageal reflux disease) LEMONS (nonalcoholic steatohepatitis) FLORES (obstructive sleep apnea) PVC (premature ventricular contraction) Statin intolerance Atherosclerotic cardiovascular disease History of colonic polyps Surgical History Hx of tonsillectomy History of hand surgery Hx of cardiac cath Hx of colonoscopy Family History Father No problems noted. Mother Stroke Brother Liver disease Social History Household Members: Spouse Housing: House Alcohol intake: current Alcohol intake frequency: does not drink Patient Tobacco Use Status: Never used Tobacco e-Cigarette/Vaping Use: Never Used service: No Current occupational status: retired Cognitive needs: No Hearing needs: No Vision needs: Yes Questionnaire PHQ-9 Over the last 2 weeks, how often have you been bothered by any of the following problems? 1. Little interest or pleasure in doing things: not at all 2. Feeling down, depressed, or hopeless: not at all 3. Trouble falling or staying asleep, or sleeping too much: not at all 4. Feeling tired or having little energy: not at all 5. Poor appetite or overeating: not at all 6. Feeling bad about yourself - or that you are a failure or have let yourself or your family down: not at all 7. Trouble concentrating on things, such as reading the newspaper or watching television: not at all 8. Moving or speaking so slowly that other people could have noticed. Or the opposite - being so fidgety or restless that you have been moving around a lot more than usual: not at all 9. Thoughts that you would be better off or of hurting yourself in some way: not at all Total score: 0 Depression Screening Interpretation: Negative Depression Screening Done: Yes 69747 - PHQ-9 Billing: Yes Source: Developed by Drs. Emir Lara, Roxanne Dolan, Shankar Mack and colleagues, with an educational josue from [employer]. Thrive Questionnaire Date Thrive assessed: 09/03/24 I am a: Patient What is your living situation today?: I have a steady place to live Within the past 12 months, did the food you bought not last and you didn't have the money to get more?: Never true Within the past 12 months, did you worry whether your food would run out before you got money to buy more?: Never true Do you have trouble paying for medicines?: No Do you have trouble getting transportation to medical appointments?: No Do you have trouble paying your heating and electricity bill?: No Do you have trouble taking care of your child, family member or friend?: No Do you have trouble with day-to-day activities such as bathing, preparing meals, shopping, managing finances, etc.?: No Are you currently unemployed and looking for a job?: No Are you interested in more education?: No THRIVE Score: 0 FRANKLIN-7 AMB Questionnaire FRANKLIN-7 Date FRANKLIN - 7 assessed: 09/03/24 Feeling nervous, anxious, or on edge: 0 = Not at all Not being able to stop or control worryin = Not at all Worrying too much about different things: 0 = Not at all Trouble relaxin = Not at all Being so restless that it is hard to sit still: 0 = Not at all Becoming easily annoyed or irritable: 0 = Not at all Feeling afraid as if something awful might happen: 0 = Not at all Total FRANKLIN-7 score (0-4 normal; 5-9 mild; 10-14 moderate; 15-21 severe): 0 Source: Developed by Drs. Emir Lara, Roxanne Dolan, Shankar Mack and colleagues, with an educational josue from [employer]. FRANKLIN-7 Assessment Billing FRANKLIN-7 Assessment Tool: FRANKLIN-7 Assessment 34853 Review of Systems Const Denies body aches, Denies fatigue, Denies headache(s), Denies weakness and Reports weight gain Eyes Reports no additional complaints ENT Denies dizziness and Denies headache(s) Card Denies chest pain, Denies chest pain with activity, Denies syncope, Denies rapid heart rate, Denies leg edema, Denies lightheadedness, Denies palpitations and Denies dyspnea Resp Denies cough and Denies dyspnea GI Denies hematochezia and Denies change in stool character Reports no additional complaints Musc Denies abnormal gait, Denies muscle cramps, Denies muscle weakness, Denies numbness, Denies radiating pain into limb and Denies tingling Neuro Denies abnormal gait, Denies dizziness, Denies syncope, Denies headache(s), Denies numbness, Denies tingling and Denies weakness Psych Reports no additional complaints Endo Denies fatigue and Denies palpitations Yaron/Lymph Reports no additional complaints Aller/Immun Reports no additional complaints Physical exam (Primary Care) Vital Signs: Last Vital Signs Temp 97.7 F 09/03/24 11:44 Pulse 86 09/03/24 11:44 Resp 16 09/03/24 11:44 BP 140/70 H 09/03/24 11:44 Pulse Ox 95 09/03/24 11:44 Oxygen Delivery Method Room Air 09/03/24 11:44 BMI result Body Mass Index 28.9 Tobacco/Smoking Status: Tobacco use Status Tobacco use date assessed 09/03/24 09/03/24 11:46 Patient Tobacco Use Status Never used Tobacco 09/03/24 11:44 e-Cigarette/Vaping Use Never Used 09/03/24 11:44 PHQ-9: PHQ-9 Score PHQ-9: Total score 0 09/03/24 12:15 Depression Screening Interpretation: Negative Thrive Assessment: Date of Thrive Assessment Date Thrive assessed 09/03/24 09/03/24 11:47 Advance Care Planning discussion: Declined forms Const General: no acute distress and alert Nutritional Appearance: overweight Orientation/consciousness: patient oriented x3 HENMT Ears: external ears normal General nose exam: Normal external nose present Mouth: Normal oral and palatal mucosa present, oropharynx normal and moist mucous membranes Eyes General: appearance normal, both eyes and all related structures Conjunctivae: conjunctivae normal Sclerae: sclerae normal Pupils: Equal, round and reactive pupils present EOM: EOMs intact bilaterally Neck Neck: Yes full ROM, Yes no lymphadenopathy and Yes supple Resp Effort & Inspection: normal respiratory effort and able to speak in complete sentences Auscultation: clear to auscultation bilaterally Cardio Rate: regular rate Rhythm: regular rhythm Heart sounds: S1 normal heart sound present and S2 normal heart sound present GI Palpation (GI): Soft to palpation, nontender and no masses Auscultation: normal bowel sounds Back/Spine/Pelvis Back: No back tenderness Skin General skin exam: no rashes or lesions noted Neuro General: patient oriented x3, gait normal, tone normal, moves all extremities, Normal light touch and pain sensation and no focal motor deficits Cranial nerves: Yes CN's II-XII intact bilaterally and Yes Equal, round and reactive pupils present Cognition (Neuro): normal cognition Extrem General: Yes full ROM, Yes no joint enlargement, Yes no clubbing, cyanosis or edema and Yes no calf tenderness Psych Appearance: grossly normal and well kempt Mental Status: mental status grossly normal Speech and movement: Normal speech and movement present Affect: normal affect Results Reviewed Results Reviewed: Laboratory Tests 08/29/24 08:59 Estimat Average Glucose 128 Hemoglobin A1c % 6.1 H Name: Toño Caceres Age/Sex: 73/M : 1950 Unit#: [id number] Attend Dr: Nanda Hanks MD Re08/29/24 Status: DEP REF Location: [facility] Disch: SPEC : [id number] TABITHA: 08/29/24 STATUS: COMP REQ : [id number] RECD: 08/29/[address]: Nanda Hanks MD COMP: 08/29/24 ENTERED: 08/29/[address] [facility] [address]: ORDERED: Met Prof Fast, AST, ALT, CK Total, Lipid Panel Test Result Flag Reference Sodium 141 135-145 mmol/L Potassium 4.4 3.3-5.1 mmol/L CL 107 96-108 mmol/L CO2 27 22-29 mmol/L Gap 11 L 12-20 BUN 19 H 9-16 mg/dL Creat 0.79 0.5-1.4 mg/dL eGFR > 60 Chronic Kidney Disease: Estimated GFR < 60 mL/min/1.73m2 Severe Kidney Disease: Estimated GFR < 15 mL/min/1.73m2 FBS 120 H 60-99 mg/dL A fasting glucose from 100-125 mg/dl is considered impaired (pre-diabetes). CA 9.3 8.4-10.2 mg/dL AST (GOT) 40 H 5-37 U/L ALT (GPT) 51 H 0-40 U/L CK Total 145 38-174 U/L Triglyceride 143 <150 mg/dL Desirable Triglyceride: less than 150 mg/dL Borderline High Triglyceride 150-199 mg/dL High Triglyceride: 200-499 mg/dL Very High Triglyceride: greater than or equal to 5OO mg/dL Cholesterol 208 H <200 mg/dL Desirable Cholesterol: less than 200 mg/dL Borderline High Cholesterol: 200-239 mg/dL High Cholesterol: greater than 239 mg/dL LDL Calculated 139 H <100 mg/dL Desirable LDL: less than 100 mg/dL Near Optimal/Above Optimal LDL: 110-129 mg/dL Borderline High LDL: 130-159 mg/dL High LDL: 160-189 mg/dL Very High LDL: greater than or equal to 190 mg/dL HDL 41 >40 mg/dL Desirable HDL: greater than 40 mg/dL Note: This HDL assay may give artificially low results in patients with liver disease. Coding Level of Care Code Est Pt Level 4 (78604) Complex EM visit Add On G2211 Diagnoses Impaired fasting glucose R73.01 Pure hypercholesterolemia E78.00 Hyperlipidemia type: pure hypercholesterolemia Essential hypertension I10 Carotid artery stenosis, unilateral I65.29 Additional Codes FRANKLIN-7 Assessment Billing - FRANKLIN-7 Assessment Tool: FRANKLIN-7 Assessment 15405 ([id number]) PHQ-9 - 68572 - PHQ-9 Billing: Yes ([id number]) Vital Signs *Quality* - Advance Care Planning discussion: Declined forms ([id number]) Assessment & Plan Assessment & Plan (1) Impaired fasting glucose: Code(s): R73.01 - Impaired fasting glucose Category: Medical Plan: Your fasting blood sugars VS elevated above 100 mg/dL. Hemoglobin A1c is at 6.1%. Impaired glucose metabolism increases the risk for developing diabetes mellitus type 2, as well as heart attack and stroke later on. Lifestyle changes that promotes weight loss, healthy eating habits, and regular exercise are important, and can prevent the progression to diabetes (2) Hyperlipidemia: Code(s): E78.5 - Hyperlipidemia, unspecified Category: Medical Qualifiers: Hyperlipidemia type: pure hypercholesterolemia Qualified Code(s): E78.00 - Pure hypercholesterolemia, unspecified Plan: Reviewed recent fasting lipid profile with patient with suboptimal control LDL cholesterol. Currently on ezetimibe and rosuvastatin 5 mg daily, does not want to go higher on his dose, reinforced importance of adherence to low-cholesterol diet and regular exercise, at least 30 minutes 3 to 4 times a week. Advised patient to make healthy food choices, eat more fruits, vegetables, whole grains, wild caught fish and low-fat dairy. Limit amount of meat and fried or fatty food products, as well as processed foods and fast foods. Follow-up scheduled with repeat fasting lipid panel in 6 months. (3) Essential hypertension: Code(s): I10 - Essential (primary) hypertension Category: Medical Plan: Blood pressure not at goal of less than 130/80. Currently taking only lisinopril 5 mg daily, does not want to go higher always dose. Reinforced importance of following a low sodium diet, getting regular exercise, and lowering stress levels. (4) Carotid artery stenosis, unilateral: Code(s): I65.29 - Occlusion and stenosis of unspecified carotid artery Category: Medical Plan: Has been seen by vascular surgery in [facility] and has been advised carotid end arterectomy but patient declined. Stressed importance of getting blood pressure, lipids and glucose levels well controlled. Continue aspirin 81 mg daily. Repeat carotid ultrasound ordered Orders: Orders US carotid duplex BI 09/03/24 I65.29 - Occlusion and stenosis of unspecified carotid artery Basic Metabolic Panel Fasting 6 Months E78.00 - Pure hypercholesterolemia, unspecified, I10 - Essential (primary) hypertension, I25.10 - Atherosclerotic heart disease of [place] coronary artery without angina pectoris, I65.29 - Occlusion and stenosis of unspecified carotid artery, R73.01 - Impaired fasting glucose, Z86.73 - Personal history of transient ischemic attack (TIA), and cerebral infarction without residual deficits Aspartate Amino Transferase 6 Months E78.00 - Pure hypercholesterolemia, unspecified, I10 - Essential (primary) hypertension, I25.10 - Atherosclerotic heart disease of [place] coronary artery without angina pectoris, I65.29 - Occlusion and stenosis of unspecified carotid artery, R73.01 - Impaired fasting glucose, Z86.73 - Personal history of transient ischemic attack (TIA), and cerebral infarction without residual deficits Lipid Panel 6 Months E78.00 - Pure hypercholesterolemia, unspecified, I10 - Essential (primary) hypertension, I25.10 - Atherosclerotic heart disease of [place] coronary artery without angina pectoris, I65.29 - Occlusion and stenosis of unspecified carotid artery, R73.01 - Impaired fasting glucose, Z86.73 - Personal history of transient ischemic attack (TIA), and cerebral infarction without residual deficits Alanine Aminotransferase 6 Months E78.00 - Pure hypercholesterolemia, unspecified, I10 - Essential (primary) hypertension, I25.10 - Atherosclerotic heart disease of [place] coronary artery without angina pectoris, I65.29 - Occlusion and stenosis of unspecified carotid artery, R73.01 - Impaired fasting glucose, Z86.73 - Personal history of transient ischemic attack (TIA), and cere bral infarction without residual deficits Hemoglobin A1c 6 Months E78.00 - Pure hypercholesterolemia, unspecified, I10 - Essential (primary) hypertension, I25.10 - Atherosclerotic heart disease of [place] coronary artery without angina pectoris, I65.29 - Occlusion and stenosis of unspecified carotid artery, R73.01 - Impaired fasting glucose, Z86.73 - Personal history of transient ischemic attack (TIA), and cerebral infarction without residual deficits
== END 2024-09-03 12:58 | disposition home or self-care (01) ==
LOC: HO.HMCC 11:05
PROVIDERS: Visit Provider Internal Medicine
DX: R73.01 Impaired fasting glucose (principal); E78.00 Pure hypercholesterolemia, unspecified; I10 Essential (primary) hypertension; I65.29 Occlusion and stenosis of unspecified carotid artery; Z00.00 Encounter for general adult medical examination without abnormal findings

== ENCOUNTER → 2024-09-03 11:05 | Outpatient (BNVA) | payer MEDICARE, SELFPAY | PROVIDERS: Visit Provider Internal Medicine | DX: R73.01 Impaired fasting glucose (principal); E78.00 Pure hypercholesterolemia, unspecified; I10 Essential (primary) hypertension; I65.29 Occlusion and stenosis of unspecified carotid artery | CPT/HCPCS: 96127; 99212 ==

== ENCOUNTER 2024-10-04 10:29 | Outpatient (REF) | payer MEDICARE, SELFPAY ==
--- NOTE | ~2024-10-04 | US_ITS ---
CLINICAL HISTORY: I65.29 - Occlusion and stenosis of unspecified carotid artery --- Additional Notes or Special Instructions: 80-90% carotid stenosis on right carotid artery US Bilateral Carotid Duplex Comparison: None Findings: No significant plaque within the common carotid arteries. Moderate plaque within the carotid bulbs. Color doppler and spectral tracings normal. Peak systolic velocities: Right CCA: 84 cm/s. Right ICA: 194 cm/s. ICA/CCA ratio: 2.3. Right ECA: Unremarkable. Right vertebral artery flow antegrade. Left CCA: 178 cm/s. Left ICA: 111 cm/s. ICA/CCA ratio: 0.4. Left ECA: Unremarkable. Left vertebral artery flow antegrade. IMPRESSION: 1. Right ICA 50-79% stenosis. 2. Possible left CCA stenosis. Consider CT angiography to further evaluate if patient can safely receive intravenous contrast. This document has been electronically signed by: Vishnu Lucero MD on 10/05/2024 08:34:51
== END 2024-10-04 10:30 | disposition home or self-care (01) ==
LOC: HO.HMGCX 10:29
PROVIDERS: PCP Internal Medicine; Visit Provider Internal Medicine
DX: I65.29 Occlusion and stenosis of unspecified carotid artery (principal); Z86.73 Personal history of transient ischemic attack (TIA), and cerebral infarction without residual deficits
CPT/HCPCS: 93880

== ENCOUNTER → 2024-10-04 10:38 | Outpatient (BNV) | payer MEDICARE, SELFPAY | PROVIDERS: PCP Internal Medicine; Visit Provider Specialist | DX: I65.29 Occlusion and stenosis of unspecified carotid artery (principal) | CPT/HCPCS: 93880 ==

== ENCOUNTER 2025-01-09 08:29 | Outpatient (AMB) | payer MEDICARE, SELFPAY ==
--- NOTE | 2025-01-09 08:37 | A.OFFVIS_ITS ---
Vital Signs 01/09/25 08:39 Height 5 ft 9 in Weight 185 lb 3.013 oz BMI 27.3 BP 148/72 H Blood Pressure Location Lt brachial Position Sitting Pulse 71 Intake Visit Reasons: 6 mo f/u Intake Note: Toño presents in the office as a 6 month follow up. CC: States he is not having any concerns at this time. New Accounts Representative Required: No Allergies Guxwekh-DQE-ItL Reductase Inhibitor Adverse Reaction (Mild, Verified 01/09/25 08:39) Abdominal Pain Medication List - Last Reconciled 01/09/25 by Frannie Padilla MD aspirin 81 mg PO DAILY ezetimibe 10 mg PO DAILY lisinopril 5 mg PO DAILY multivitamin 1 tab PO DAILY nitroglycerin 0.4 mg sublingual Q5M PRN rosuvastatin 5 mg PO DAILY vitamin B complex 1 tab PO DAILY HPI HPI 6 mo f/u: Details: GI clinic visit for this 74-year-old male for follow-up of adenomatous colon polyps, elevated LFTs, fatty liver and obesity. ?CHRONIC ILLNESSES:?Essential hypertension, sleep apnea, syncope, elevated PSA, erectile dysfunction. ??TODAY'S VISIT Patient cc: CC: States he is not having any concerns at this time. Continue to follow a healthier diet (home cooked food) and feels better. Notes acid reflex on and off if he eats too much cherries and denies dysphagia. Drinks warm water and coffee since symptoms are worse with cold liquids. Notes intermittent acid reflux and drinks green tea with improvement in symptoms Notes some dysphagia if he drinks liquids too fast and sometimes with solid food Symptoms started after he had a CVA and is gradually improving. 09/2023 advised carotid endartrectomy after he had a CVA - reluctant due to concern for complications Continues to have abdominal bloating. Labs reviewed - increase in LFTs with wt gain Plans to be more active in the spring/summer PAST VISITS: Gained 10 -11 lbs - ? related to being less active. Denies ankle edema. Complains of increased frequency of micturation Able to loose wt to 183 lbs Resumed walking - tries to walk 7000 steps daily Has bloating when he eats too much bread. Fasting blood sugar range from a 100 to 105 Denies heartburn, dysphagia, constipation or diarrhea. On no medications - takes aspirin intermittently Has gained wt from 182 to 192 (187 lbs at home) Has been less active during the winter. Plans to start walking. When he wakes up at 8:30 am, checks his blood sugar and is 120 to 138 Has a brunch at 10 am and has suppper 4 to 5 pm. Bloating has improved since he cut back on carbohydrates. Cut out saturated fat from his diet. Taking some fibre since he notes fatigue and bloating witth bread and whole grain. Taking more fruit and salad Cooks at home and does not eat packaged food. likes to cook. Feeling a little better than last visit. Made some changes in the diet - eating a little less and watching the saturated fat in his diet. Feeling weird - having constipation since Jun, 2021 Feels dizzy when he tries to walk. Notes gas and bloating - like never before Has breakfast at 10 am - 3 eggs, torrez or home cooked ham Takes some cottage cheese or a slice of white cheese Has salads a few times a day Eating a handful of berries and eats nuts every night. Has home cooked meals for dinner at 5 pm - mostly soup Blood sugar levels are 120 to 130 when he wakes up. Wt is going up slowly. Has a Bm every other day and is painful. Trying to avoid the carbs. Continues to walk daily and having some back pain and associated with urination (? due to gas) Lost 14 lbs over the past 3 months by changing his diet. Planning to loose to 170 lbs. Walking 1.5 hrs (5 miles) every day. Using [place] and sesame seed oil. ?Taking more fibre in his diet. ? Continuing to walk daily - loosing weight slowly. ? Using a special belt which is helping with back pain. Had a son who at age 38 yrs from Pulmonary Htn. Tx from [place] to [place] for a lung transplant and did not survive. Has relatives in [place] that he visits periodically ? PAST VISIT: Colonoscopy results were reviewed. ? Denies problems after colonoscopy. ? Lost 10 lbs - has been walking every day. ? Not eating any cold cut meats. ? Working on loosing weight and has lost 7 lbs - fat layer is a little less. ? Weighs 194.5 lbs ? is cooking without fat. ? Unable to excercise due to palpitations. ? Is able to walk with some breaks. ? Denies taking any ETOH for the last 3 yrs. ? He states he drank ETOH in [place] in the and states he was poisoned and he was jaundiced afterwards. He is uncertain of the diagnosis but a medication cleared it up. ? Denies exposure to Hep B, C, D, HIV or tuberculosis ? Admits cardiac issues- HTN, had a stent placed in 2015, ahs SOB when walking on an incline, cardiology appointment in June 2019- may request for him to seen sooner prior to colonoscopy for clearance. ? Denies CP but has some mild discomfort with?exercis ?LABS IN [facility]:?10/04/19 Reviewed INR 1.0, ? BILIRUBIN, TOTAL 1.1 H ? GOT 34 (5-37) (U/L) ? GPT 44 H (0-40) (U/L) ?IMAGING STUDIES: 04/09/2019 ABDOMINAL ULTRASOUND SHOWED: ? Hepatic steatosis with focal fatty sparing. ? Rest of the abdominal ultrasound is unremarkable. ?ENDOSCOPIC STUDIES: 05/23/23 COLONOSCOPY SHOWED: Two small and two medium sized polyps removed Moderate diverticulosis seen in the left colon Moderate hemorrhoids on retroflexed exam. Plan: Repeat Colonoscopy interval based on path results - in 3-5 years if polyps are adenomatous and due to history of adenomatous colon polyp. 07/07/20 COLONOSCOPY SHOWED:? Two small (serrated polyps) and two medium sized (hyperplastic) polyps removed ? Moderate diverticulosis seen in the left colon ? Plan:? Repeat Colonoscopy interval based on path results - in 3 years if polyps are adenomatous and 5 years if polyps are hyperplastic. ? ? ? BIOPSIES SHOWED: A.? Colon, ascending, polypectomy:-? Fragments of sessile serrated polyp. B.? Cecum, polypectomy:? Colonic mucosa with prominent lymphoid aggregate; no dysplasia seen. C.? Colon, proximal ascending, polypectomy:? Sessile serrated polyp with small perineurioma. D.? Rectum, polypectomy:? Hyperplastic mucosal polyp. 06/25/19 colonoscopy showed:? Two polyps removed - BX showed fragments of sessile serrated polyp. ? Small hemorrhoids on retroflexed exam. ? Plan:? Repeat Colonoscopy interval based on path results in 1-2 years if ? cecal polyps are adenomatous to check polypectomy site and 10 years if polyps are hyperplastic. ? Above findings were reviewed with the patient and handout on Colon polyps was given in the discharge area BIOPSIES SHOWED: A.? Colon, ascending, polypectomy:-? Fragments of sessile serrated polyp. B.? Cecum, polypectomy:? Colonic mucosa with prominent lymphoid aggregate; no dysplasia seen. C.? Colon, proximal ascending, polypectomy:? Sessile serrated polyp with small perineurioma. D.? Rectum, polypectomy:? Hyperplastic mucosal polyp PFSH Medical History Vaccination declined by patient Carotid artery stenosis, unilateral Impaired fasting glucose History of CVA (cerebrovascular accident) CAD (coronary artery disease) CHF (congestive heart failure) On beta mere at home HTN (hypertension) Diabetes mellitus DVT (deep venous thrombosis) GERD (gastroesophageal reflux disease) LEMONS (nonalcoholic steatohepatitis) FLORES (obstructive sleep apnea) PVC (premature ventricular contraction) Statin intolerance Atherosclerotic cardiovascular disease History of colonic polyps Surgical History Hx of tonsillectomy History of hand surgery Hx of cardiac cath Hx of colonoscopy Family History Father No problems noted. Mother Stroke Brother Liver disease Social History Household Members: Spouse Housing: House Alcohol intake: current Alcohol intake frequency: does not drink Patient Tobacco Use Status: Never used Tobacco e-Cigarette/Vaping Use: Never Used service: No Current occupational status: retired Cognitive needs: No Hearing needs: No Vision needs: Yes Review of Systems Const All systems reviewed & are unremarkable except as noted in HPI and below Physical Exam Vital Signs: Last Vital Signs Pulse 71 01/09/25 08:39 BP 148/72 H 01/09/25 08:39 BMI result Body Mass Index 27.3 Const General: healthy appearing and no acute distress Nutritional Appearance: overweight Orientation/consciousness: patient oriented x3 Limitations: no limitations HEENT Head: Yes normal to inspection Ears: hearing grossly normal bilaterally Eyes Sclerae: sclerae normal Pupils: Equal, round and reactive pupils present Neck Neck: Yes normal visual inspection Chest Chest palpation & inspection: normal inspection of the chest Resp Effort & Inspection: normal respiratory effort Auscultation: clear to auscultation bilaterally Cardio Palpation: normal PMI Rate: regular rate Rhythm: regular rhythm Heart sounds: S1 normal heart sound present, S2 normal heart sound present and no murmurs GI Palpation (GI): Soft to palpation, nontender and No hepatosplenomegaly present Auscultation: normal bowel sounds Rectal Exam - Male: Yes deferred Skin General skin exam: no rashes or lesions noted Neuro General: patient oriented x3, gait normal and moves all extremities Cranial nerves: Yes Equal, round and reactive pupils present Psych Appearance: grossly normal Mental Status: mental status grossly normal Assessment & Plan Assessment & Plan (1) LEMONS (nonalcoholic steatohepatitis): Code(s): K75.81 - Nonalcoholic steatohepatitis ([place]MONS) Category: Medical (2) History of colonic polyps: Code(s): Z86.010 - Personal history of colon polyps Category: Medical (3) Elevated LFTs: Code(s): R79.89 - Other specified abnormal findings of blood chemistry Category: Medical (4) Dysphagia, pharyngoesophageal phase: Code(s): R13.14 - Dysphagia, pharyngoesophageal phase Category: Medical Plan 74 YM with Essential hypertension, sleep apnea, syncope, elevated PSA, erectile dysfunction, CAD, seen for FU of elevated LFTs likely due to fatty liver associated with obesity and follow-up of adenomatous colon polyps. Patient had a colonoscopy in Jul, 2020 and three sessile serrated polyps were removed.? Repeat colonoscopy is advised in 3 years (due in 07/2023). Patient was advised weight reduction for fatty liver. He and his are workin g on changing to a healthier diet with more fruits and vegetables. LFTs have been normal since he lost weight. He was advised to stop vitamin E when he finishes the current prescription. Patient handout on fatty liver from up-to-date was given to the patient at a previous visit. Symptoms of bloating and constipation have improved with change in diet (cutting back on fried foods). Pt was advised to establish care with a primary care physician for management of elevated cholesterol (since he has been following up with Cardiology and GI only) Repeat labs to recheck cholesterol at patient's request. Still looking for a PCP - given names of PCP providers to establish care. Advised a trail of a FODMAP diet for 6 weeks during his past visit. 07/06/23 Intermittent elevation of LFTs - likely due to steatohepatitis Liver fibrosis test showed Liver fibrosis score of 0.26 and stage F2 Schedule abd US with elastography 09/2023 ABD US WITH ELASTOGRAPHY SHOWED: 1. There is generalized increase in hepatic echotexture, consistent with fatty infiltration or hepatocellular disease. Please correlate clinically. No focal hepatic mass or intrahepatic biliary dilatation is seen. 2. Liver elastography: Measurements are consistent with a high probability of normal liver stiffness. 07/11/24 Barium swallow for evaluation of dysphagia (if symptoms improve he may decide to cancel) Pt was advised to continue working on wt reduction FU labs ordered by PCP Follow-up in 8 months Coding Level of Care Code Est Pt Level 3 (37311) Diagnoses LEMONS (nonalcoholic steatohepatitis) K75.81 History of colonic polyps Z86.010 Elevated LFTs R79.89 Dysphagia, pharyngoesophageal phase R13.14 Time Spent (min) 18
[2025-01-09 08:39] VITALS: BP 148/72; PULSE 71; BMI 27.3
--- OUTSIDE RECORDS SUMMARY | 2025-01-09 08:43 | XMS_ITS | Patient Health Record ---
Author Organization [facility] Address [address] [place] [id number] Care Team Providers Care Hold Worker Name Role Phone Rene (RETIRED) Vijay MANUEL Primary Care Provide r Unavailable Mehrdad Kunz Jr Unavailable Reason For Referral No Information Plan Of Treatment No Information Insurance Providers Payer Name Payer Address Payer Phone Subscriber Number Group Number Insured Name Patient Relationship to Insured Coverage Start Date Coverage End Date [facility] [address] [place] [phone] [id number] ANA GONZALES Self - patient is the insured Medical (General) History Medical History History ICD Code history of epigastric pain history of reflux elevated blood sugar Surgical History Surgery Date(Month/Year) appendectomy
== END 2025-01-09 09:01 | disposition home or self-care (01) ==
PROVIDERS: Visit Provider Internal Medicine Gastroenterology
DX: K75.81 Nonalcoholic steatohepatitis (NASH) (principal); Z86.0100 Personal history of colon polyps, unspecified; R79.89 Other specified abnormal findings of blood chemistry; R13.14 Dysphagia, pharyngoesophageal phase
CPT/HCPCS: 99213

== ENCOUNTER → 2025-01-09 08:29 | Outpatient (BNVA) | payer MEDICARE, SELFPAY | PROVIDERS: Visit Provider Internal Medicine Gastroenterology | DX: K75.81 Nonalcoholic steatohepatitis (NASH) (principal); R13.14 Dysphagia, pharyngoesophageal phase; R79.89 Other specified abnormal findings of blood chemistry; Z86.0100 Personal history of colon polyps, unspecified | CPT/HCPCS: 99212 ==

== ENCOUNTER 2025-01-13 10:35 | Outpatient (AMB) | payer MEDICARE, SELFPAY ==
[2025-01-13 10:42] VITALS: BP 128/62; PULSE 82; BMI 27.2
--- NOTE | 2025-01-13 10:42 | A.OFFVIS_ITS ---
Vital Signs 01/13/25 10:42 Height 5 ft 9 in Weight 184 lb BMI 27.2 BP 128/62 Blood Pressure Location Lt brachial Position Sitting Pulse 82 Pulse Source Pulse Oximeter Intake Visit Reasons: 6 mt f/up Allergies [id number] Reductase Inhibitor Adverse Reaction (Mild, Verified 01/09/25 08:39) Abdominal Pain Medication List - Last Reconciled 01/13/25 by Kishan Bradley MD aspirin 81 mg PO DAILY ezetimibe 10 mg PO DAILY lisinopril 5 mg PO DAILY multivitamin 1 tab PO DAILY nitroglycerin 0.4 mg sublingual Q5M PRN rosuvastatin 5 mg PO DAILY vitamin B complex 1 tab PO DAILY HPI Comments Details: Toño returns for follow-up regarding coronary and vascular disease. To recall, he has a history of coronary disease and prior LAD PCI. He does not like taking medications; in the past, has been on various meds including nitrates, beta-blockers, lisinopril, amlodipine at different times but was complaining of some side effect or the other and hence was never taking them. Had also tried statins but could not take them because of musculoskeletal pain, although not entirely clear if it is medication related. Then tried Repatha and could not afford. Hence was on nothing for cholesterol for a long time but more recently back on statins. In 2023, he had a stroke and saw vascular surgery in [place] and [facility] but decided against any carotid interventions. He states he wants to leave it that way. Since last seen, he states he is actually feeling quite good. He is very active in the lawn and works all day and goes up and down stairs extra with no issues. [facility] Medical History Vaccination declined by patient Carotid artery stenosis, unilateral Impaired fasting glucose History of CVA (cerebrovascular accident) CAD (coronary artery disease) CHF (congestive heart failure) On beta mere at home HTN (hypertension) Diabetes mellitus DVT (deep venous thrombosis) GERD (gastroesophageal reflux disease) LEMONS (nonalcoholic steatohepatitis) FLORES (obstructive sleep apnea) PVC (premature ventricular contraction) Statin intolerance Atherosclerotic cardiovascular disease History of colonic polyps Surgical History Hx of tonsillectomy History of hand surgery Hx of cardiac cath Hx of colonoscopy Family History Father No problems noted. Mother Stroke Brother Liver disease Social History Household Members: Spouse Housing: House Alcohol intake: current Alcohol intake frequency: does not drink Patient Tobacco Use Status: Never used Tobacco e-Cigarette/Vaping Use: Never Used service: No Current occupational status: retired Cognitive needs: No Hearing needs: No Vision needs: Yes Review of Systems Const Denies weakness ENT Denies dizziness Card Denies chest pain, Denies chest pain with activity, Denies syncope, Denies rapid heart rate, Denies pedal edema, Denies edema, Denies leg edema, Denies lightheadedness, Denies palpitations, Denies dyspnea, Denies dyspnea on exertion and Denies orthopnea Resp Denies cough, Denies dyspnea and Denies dyspnea on exertion GI Denies hematochezia and Denies change in stool character Musc Denies abnormal gait, Denies muscle cramps, Denies muscle weakness, Denies numbness, Denies radiating pain into limb and Denies tingling Neuro Denies abnormal gait, Denies dizziness, Denies syncope, Denies numbness, Denies tingling and Denies weakness Endo Denies palpitations Physical Exam Vital Signs: Last Vital Signs Pulse 82 01/13/25 10:42 BP 128/62 01/13/25 10:42 BMI result Body Mass Index 27.2 Const General: comfortable and no acute distress Orientation/consciousness: patient oriented x3 HEENT Other: Unremarkable Head: Yes normal to inspection Neck Neck: Yes normal visual inspection Chest Chest palpation & inspection: normal inspection of the chest Resp Auscultation: clear to auscultation bilaterally Cardio Palpation: normal PMI Heart sounds: S1 normal heart sound present, S2 normal heart sound present, no gallops, no murmurs and no rubs GI Palpation (GI): Soft to palpation Back/Spine/Pelvis Other: unremarkable Skin General skin exam: no rashes or lesions noted Neuro General: patient oriented x3 Extrem General: Yes normal to inspection Psych Mental Status: mental status grossly normal Assessment & Plan Assessment & Plan (1) Atherosclerotic cardiovascular disease: Code(s): I25.10 - Atherosclerotic heart disease of [place] coronary artery without angina pectoris Category: Medical Plan Cardiac studies reviewed. Cardiac catheterization from 2019 shows patent stent in the LAD; 90% ostial diagonal disease-small vessel; 80% ostial right PDA disease, medically managed. In the last echocardiogram, LVEF is 49%. Basal inferior/mid inferior/apical septum/mid inferolateral hypokinesis. Ascending aortic size 4 cm. Wall motion abnormalities could be related to PDA disease. Wall motion abnormalities have been seen in the past. In the exercise stress perfusion study from 2023, he did get jaw discomfort and EKG changes but perfusion component without any significant findings. Overall, known coronary disease, medication noncompliance but otherwise no clinically concerning symptoms. He can continue long-term aspirin. With regard to statins, we discussed about going up on the dose but he is not willing to try. He wants to just leave things as they are. He understands that controlled his clearly suboptimal. For blood pressure, on lisinopril. Otherwise, he will contact us with any concerns as they arise. We will plan on following up in one year. Total time spent including review of data, counseling, documentation, coordination of care-32 minutes. Coding Level of Care Code Est Pt Level 4 (81894) Diagnoses Atherosclerotic cardiovascular disease I25.10
== END 2025-01-13 10:57 | disposition home or self-care (01) ==
LOC: HO.HCS 10:35
PROVIDERS: Visit Provider Internal Medicine
DX: I25.10 Atherosclerotic heart disease of native coronary artery without angina pectoris (principal)
CPT/HCPCS: 99214

== ENCOUNTER → 2025-01-13 10:35 | Outpatient (BNVA) | payer MEDICARE, SELFPAY | PROVIDERS: Visit Provider Internal Medicine | DX: I25.10 Atherosclerotic heart disease of native coronary artery without angina pectoris (principal) | CPT/HCPCS: 99212 ==

== ENCOUNTER 2025-03-05 11:13 | Outpatient (AMB) | payer MEDICARE, SELFPAY ==
--- NOTE | 2025-03-05 11:54 | MHC.PC.OV ---
Vital Signs 03/05/25 11:55 Height 5 ft 9 in Weight 188 lb BMI 27.8 BP 142/72 H Blood Pressure Location Rt brachial Position Sitting Respiration 16 Pulse 84 Pulse Source Pulse Oximeter Temp 98.2 F Temp Source Oral Pulse Oximetry (%) 96 Oxygen Delivery Method Room Air Intake Visit Reasons: 6m follow up Allergies [id number] Reductase Inhibitor Adverse Reaction (Mild, Verified 03/05/25 12:10) Abdominal Pain Medication List - Last Reconciled 03/05/25 by Nanda Hanks MD aspirin 81 mg PO DAILY ezetimibe 10 mg PO DAILY lisinopril 5 mg PO DAILY multivitamin 1 tab PO DAILY nitroglycerin 0.4 mg sublingual Q5M PRN rosuvastatin 5 mg PO DAILY vitamin B complex 1 tab PO DAILY Tobacco use date assessed: 03/05/25 Fall risk assessment: No Falls in past year Last assessed Fall Risk: 03/05/25 Dental Screening Dental Screen Date: 03/05/25 Did you have a dental visit in the last 12 months?: Yes Did you have a dental problem in the last 6 months where you did not have access to dental care?: No Was dental information given to patient?: Patient has dentist HPI 6m follow up HPI Details 74-year-old male with history of hypertension, dyslipidemia, obstructive sleep apnea,carotid artery stenosis, impaired fasting glucose and history of CVA, here today for follow-up. Hypertension has been managed with lisinopril 5 mg, and recent blood pressure of 132/80 mmHg initially, which decreased to 130/75 mmHg after relaxation. The patient has made dietary changes, reducing his meal portions and intake of processed foods. . He has been engaging in regular physical activity, such as yard work He has been complaining of intermittent hearing loss and fullness in the ears. He has been referred to an ENT specialist for further evaluation and management. Denies otalgia, no ear discharge reported [facility] [place] Medical History (Updated 03/05/25 @ 12:24 by Nanda Hanks MD) Decreased hearing of both ears Vaccination declined by patient Carotid artery stenosis, unilateral Impaired fasting glucose History of CVA (cerebrovascular accident) CAD (coronary artery disease) CHF (congestive heart failure) On beta mere at home HTN (hypertension) Diabetes mellitus DVT (deep venous thrombosis) GERD (gastroesophageal reflux disease) LEMONS (nonalcoholic steatohepatitis) FLORES (obstructive sleep apnea) PVC (premature ventricular contraction) Statin intolerance Atherosclerotic cardiovascular disease History of colonic polyps Surgical History Hx of tonsillectomy History of hand surgery Hx of cardiac cath Hx of colonoscopy Family History Father No problems noted. Mother Stroke Brother Liver disease Social History Household Members: Spouse Housing: House Alcohol intake: current Alcohol intake frequency: does not drink Patient Tobacco Use Status: Never used Tobacco e-Cigarette/Vaping Use: Never Used service: No Current occupational status: retired Cognitive needs: No Hearing needs: No Vision needs: Yes Questionnaire PHQ-9 Over the last 2 weeks, how often have you been bothered by any of the following problems? 1. Little interest or pleasure in doing things: not at all 2. Feeling down, depressed, or hopeless: not at all 3. Trouble falling or staying asleep, or sleeping too much: not at all 4. Feeling tired or having little energy: not at all 5. Poor appetite or overeating: not at all 6. Feeling bad about yourself - or that you are a failure or have let yourself or your family down: not at all 7. Trouble concentrating on things, such as reading the newspaper or watching television: not at all 8. Moving or speaking so slowly that other people could have noticed. Or the opposite - being so fidgety or restless that you have been moving around a lot more than usual: not at all 9. Thoughts that you would be better off or of hurting yourself in some way: not at all Total score: 0 Depression Screening Interpretation: Negative Depression Screening Done: Yes Source: Developed by Drs. Emir Lara, Roxanne Dolan, Shankar Mack and colleagues, with an educational josue from [employer]. Thrive Questionnaire Date Thrive assessed: 09/03/24 I am a: Patient What is your living situation today?: I have a steady place to live Within the past 12 months, did the food you bought not last and you didn't have the money to get more?: Never true Within the past 12 months, did you worry whether your food would run out before you got money to buy more?: Never true Do you have trouble paying for medicines?: No Do you have trouble getting transportation to medical appointments?: No Do you have trouble paying your heating and electricity bill?: No Do you have trouble taking care of your child, family member or friend?: No Do you have trouble with day-to-day activities such as bathing, preparing meals, shopping, managing finances, etc.?: No Are you currently unemployed and looking for a job?: No Are you interested in more education?: No THRIVE Score: 0 AUDIT C Alcohol Use Questionnaire (AUDIT-C) 1. How often do you have a drink containing alcohol?: Never Total Score: 0 FRANKLIN-7 AMB Questionnaire FRANKLIN-7 Date FRANKLIN - 7 assessed: 09/03/24 Feeling nervous, anxious, or on edge: 0 = Not at all Not being able to stop or control worryin = Not at all Worrying too much about different things: 0 = Not at all Trouble relaxin = Not at all Being so restless that it is hard to sit still: 0 = Not at all Becoming easily annoyed or irritable: 0 = Not at all Feeling afraid as if something awful might happen: 0 = Not at all Total FRANKLIN-7 score (0-4 normal; 5-9 mild; 10-14 moderate; 15-21 severe): 0 Source: Developed by Drs. Emir Lara, Roxanne Dolan, Shankar Mack and colleagues, with an educational josue from [employer]. Review of Systems Const Denies body aches, Denies fatigue, Denies headache(s) and Denies weakness Eyes Reports no additional complaints ENT Denies dizziness and Denies headache(s) Card Denies chest pain, Denies chest pain with activity, Denies syncope, Denies rapid heart rate, Denies leg edema, Denies lightheadedness, Denies palpitations and Denies dyspnea Resp Denies cough and Denies dyspnea GI Reports no additional complaints Reports no additional complaints Musc Denies abnormal gait, Denies muscle cramps, Denies muscle weakness, Denies numbness, Denies radiating pain into limb and Denies tingling Neuro Denies abnormal gait, Denies dizziness, Denies syncope, Denies headache(s), Denies numbness, Denies tingling and Denies weakness Psych Reports no additional complaints Endo Denies fatigue and Denies palpitations Yaron/Lymph Reports no additional complaints Aller/Immun Reports no additional complaints Physical exam (Primary Care) Vital Signs: Last Vital Signs Temp 98.2 F 03/05/25 11:55 Pulse 84 03/05/25 11:55 Resp 16 03/05/25 11:55 BP 142/72 H 03/05/25 11:55 Pulse Ox 96 03/05/25 11:55 Oxygen Delivery Method Room Air 03/05/25 11:55 BMI result Body Mass Index 27.8 Tobacco/Smoking Status: Tobacco use Status Tobacco use date assessed 03/05/25 03/05/25 12:00 Patient Tobacco Use Status Never used Tobacco 03/05/25 12:00 e-Cigarette/Vaping Use Never Used 03/05/25 12:00 PHQ-9: PHQ-9 Score PHQ-9: Total score 0 03/10/25 01:04 Depression Screening Interpretation: Negative Thrive Assessment: Date of Thrive Assessment Date Thrive assessed 09/03/24 03/05/25 12:00 Advance Care Planning discussion: Declined forms Const General: no acute distress and alert Nutritional Appearance: overweight Orientation/consciousness: patient oriented x3 HENMT Ears: external ears normal General nose exam: Normal external nose present Mouth: Normal oral and palatal mucosa present, oropharynx normal and moist mucous membranes Eyes General: appearance normal, both eyes and all related structures Neck Neck: Yes full ROM, Yes no lymphadenopathy and Yes supple Resp Effort & Inspection: normal respiratory effort and able to speak in complete sentences Auscultation: clear to auscultation bilaterally Cardio Rate: regular rate Rhythm: regular rhythm Heart sounds: S1 normal heart sound present and S2 normal heart sound present GI Palpation (GI): Soft to palpation, nontender and no masses Auscultation: normal bowel sounds Back/Spine/Pelvis Back: No back tenderness Skin General skin exam: no rashes or lesions noted Neuro General: patient oriented x3, gait normal, tone normal, moves all extremities, Normal light touch and pain sensation and no focal motor deficits Cranial nerves: Yes CN's II-XII intact bilaterally Cognition (Neuro): normal cognition Extrem General: Yes full ROM, Yes no joint enlargement, Yes no clubbing, cyanosis or edema and Yes no calf tenderness Psych Appearance: grossly normal and well kempt Mental Status: mental status grossly normal Speech and movement: Normal speech and movement present Affect: normal affect Coding Level of Care Code Est Pt Level 4 (63501) Complex EM visit Add On G2211 Diagnoses Decreased hearing of both ears H91.93 Essential hypertension I10 Pure hypercholesterolemia E78.00 Hyperlipidemia type: pure hypercholesterolemia Impaired fasting glucose R73.01 Obesity (BMI 30.0-34.9) E66.9 Additional Codes Vital Signs *Quality* - Advance Care Planning discussion: Declined forms ([id number]) Assessment & Plan Assessment & Plan (1) Decreased hearing of both ears: Code(s): H91.93 - Unspecified hearing loss, bilateral Category: Medical Plan: Referral to ENT ordered (2) Essential hypertension: Code(s): I10 - Essential (primary) hypertension Category: Medical Plan: Blood pressure goal is less than 130/80. Currently on lisinopril 5 mg daily. Reinforced importance of following a low sodium diet, getting regular exercise, and lowering stress levels. Reminded to get his fasting labs done (3) Hyperlipidemia: Code(s): E78.5 - Hyperlipidemia, unspecified Category: Medical Qualifiers: Hyperlipidemia type: pure hypercholesterolemia Qualified Code(s): E78.00 - Pure hypercholesterolemia, unspecified Plan: fasting lipid profile has been ordered . Continue ezetimibe 10 mg daily and rosuvastatin 5 mg once a day , in addition to adherence to low-cholesterol diet and regular exercise, at least 30 minutes 3 to 4 times a week. Advised patient to make healthy food choices, eat more fruits, vegetables, whole grains, wild caught fish and low-fat dairy. Limit amount of meat and fried or fatty food products, as well as processed foods and fast foods. . (4) Impaired fasting glucose: Code(s): R73.01 - Impaired fasting glucose Category: Medical Plan: Your previous fasting blood sugars were elevated above 100 mg/dL. Impaired glucose metabolism increases the risk for developing diabetes mellitus type 2, as well as heart attack and stroke later on. Lifestyle changes that promotes weight loss, healthy eating habits, and regular exercise are important, and can prevent the progression to diabetes (5) Obesity (BMI 30.0-34.9): Code(s): E66.9 - Obesity, unspecified Category: Medical Plan: Discussed need to increase activity and weight reduction. Advised to try Mediterranean diet, which limits food high in fat, sugar, and calories. Eat slowly, pay attention to portion sizes, plan your meals ahead of time, continue with regular physical activity, at least 150 minutes of moderate intensity exercise, Orders: Referrals Ear/Nose/Throat Referral H91.93 - Unspecified hearing loss, bilateral
[2025-03-05 11:55] VITALS: BP 142/72; PULSE 84; RESP 16; TEMP 36.8; O2SAT 96; BMI 27.8
== END 2025-03-05 12:28 | disposition home or self-care (01) ==
LOC: HO.HMCC 11:13
PROVIDERS: Visit Provider Internal Medicine
DX: I10 Essential (primary) hypertension (principal); H91.93 Unspecified hearing loss, bilateral; Z68.27 Body mass index [BMI] 27.0-27.9, adult; E66.9 Obesity, unspecified; E78.00 Pure hypercholesterolemia, unspecified; R73.01 Impaired fasting glucose; Z00.00 Encounter for general adult medical examination without abnormal findings

== ENCOUNTER → 2025-03-05 11:13 | Outpatient (BNVA) | payer MEDICARE, SELFPAY | PROVIDERS: Visit Provider Internal Medicine | DX: G47.33 Obstructive sleep apnea (adult) (pediatric) (principal); I10 Essential (primary) hypertension; E78.5 Hyperlipidemia, unspecified; H91.93 Unspecified hearing loss, bilateral; E78.00 Pure hypercholesterolemia, unspecified; R73.01 Impaired fasting glucose; E66.9 Obesity, unspecified; Z86.73 Personal history of transient ischemic attack (TIA), and cerebral infarction without residual deficits | CPT/HCPCS: 96127; 99212 ==

== ENCOUNTER 2025-04-17 09:04 | Outpatient (REF) | payer MEDICARE, SELFPAY ==
--- OUTSIDE RECORDS SUMMARY | 2025-04-17 09:53 | XMS_ITS | Patient Health Record ---
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 Name Role Phone Rene (RETIRED) Vijay MANUEL Primary Care Provide r Unavailable Mehrdad Kunz Jr Unavailable Reason For Referral No Information Plan Of Treatment No Information Insurance Providers Payer Name Payer Address Payer Phone Subscriber Number Group Number Insured Name Patient Relationship to Insured Coverage Start Date Coverage End Date [facility] [employer] [facility] [address] [place] [id number] [id number] ANA GONZALES Self - patient is the insured Medical (General) History Medical History History ICD Code history of epigastric pain history of reflux elevated blood sugar Surgical History Surgery Date(Month/Year) appendectomy
[2025-04-17 11:55] LABS: Alanine Aminotransferase 51 U/L (0-40); Anion Gap 11 (12-20); Aspartate Amino Transferase 42 U/L (5-37); Blood Urea Nitrogen 20 mg/dL (9-16); Calcium 9.3 mg/dL (8.4-10.2); Carbon Dioxide 28 mmol/L (22-29); Chloride 107 mmol/L (96-108); Cholesterol 210 mg/dL (<200); Estimated Glomerular Filt Rate > 60; HDL Cholesterol 45 mg/dL (>40); Potassium 4.7 mmol/L (3.3-5.1); Sodium 141 mmol/L (135-145); Triglycerides 152 mg/dL (<150)
== END 2025-04-17 09:05 | disposition home or self-care (01) ==
LOC: HO.HMGCLDS 09:04
PROVIDERS: PCP Internal Medicine; Visit Provider Internal Medicine
DX: I65.29 Occlusion and stenosis of unspecified carotid artery (principal); R73.01 Impaired fasting glucose; Z86.73 Personal history of transient ischemic attack (TIA), and cerebral infarction without residual deficits; I10 Essential (primary) hypertension; I25.10 Atherosclerotic heart disease of native coronary artery without angina pectoris; E78.00 Pure hypercholesterolemia, unspecified
CPT/HCPCS: 36415; 80048; 80061; 83036; 84450; 84460